=== PATIENT | female | born 1955 | race American Indian/Alaskan Native ===

== ENCOUNTER 2016-08-13 14:22 | Inpatient (IN) | payer OTHER ==
[2016-08-13 14:22] VITALS: BMI 20.9
--- NOTE | 2016-08-13 15:06 | ED PDOC ---
Arrival/HPI - General Time Seen by Provider: 08/13/16 14:44 Historian: Patient - History of Present Illness Narrative History of Present Illness (Text): 08/13/16 15:09 A 60 year old female, whose past medical history includes COPD and hypertension , presents to the emergency department complaining of worsening shortness of breath, palpitations, and intermittent left sided chest pain for the past three days. Patient reports she had these symptoms for the past month. She reports seeing her PMD and ict help desk technician three days ago. Patient reports taking Medrol dose pack and antibiotics for the past two days. She reports having cough with phlegm. Patient denies fevers, chills, body aches or any other complaints at this time. Patient states she hasn't traveled in past and no past surgeries. PMD: Dr. Schneider Audio Visual Facilities Engineer: Dr. Campuzano Time/Duration: Other (3 days) Symptom Onset: Sudden Symptom Course: Unchanged Activities at Onset: Rest Modifying Factors (Text): Medrol dose pack and antibiotics for past two days Context: Home Associated Symptoms (Text): cough (phlegm) Past Medical History - Provider Review Nursing Documentation Reviewed: Yes - Infectious Disease Hx of Infectious Diseases: None - Tetanus Immunization Tetanus Immunization: Unknown - Cardiac Hx Cardiac Disorders: Yes Hx Hypertension: Yes - Pulmonary Hx Respiratory Disorders: Yes Hx Asthma: Yes Hx Chronic Obstructive Pulmonary Disease (COPD): Yes - Neurological Hx Neurological Disorder: No - HEENT Hx HEENT Disorder: No - Renal Hx Renal Disorder: No - Endocrine/Metabolic Hx Endocrine Disorders: No - Hematological/Oncological Hx Blood Disorders: No - Integumentary Hx Dermatological Disorder: No - Musculoskeletal/Rheumatological Hx Musculoskeletal Disorders: Yes Hx Falls: No Hx Herniated Disk: Yes - Gastrointestinal Hx Gastrointestinal Disorders: Yes Hx Diverticulitis: Yes - Genitourinary/Gynecological Hx Genitourinary Disorders: No - Psychiatric Hx Psychophysiologic Disorder: No Hx Substance Use: No - Past Surgical History Past Surgical History: No Previous - Surgical History Other/Comment: Polyp removed from esophagus - Anesthesia Hx Anesthesia: Yes Hx Anesthesia Reactions: No Hx Malignant Hyperthermia: No - Suicidal Assessment Feels Threatened In Home Enviroment: No Family/Social History - Physician Review Nursing Documentation Reviewed: Yes Family/Social History: No Known Family HX Smoking Status: Light Smoker < 10 Cigarettes Daily Hx Alcohol Use: No Hx Substance Use: No Hx Substance Use Treatment: No Allergies/Home Meds Allergies/Adverse Reactions: Allergies No Known Allergies Allergy (Verified 08/13/16 15:06) Home Medications: Home Meds Medication Instructions Recorded Confirmed Metoprolol Tartrate 50 mg PO BID 08/25/13 08/13/16 Aclidinium [place] [Tudorza 400 mcg IH [facility] 05/31/14 08/13/16 Pressair] Acetaminophen/Oxycodone Hydr 10 mg PO Q6 PRN 02/02/16 08/13/16 [Percocet 10/325 mg Tab] Valsartan [Diovan] 320 mg PO DAILY 02/02/16 08/13/16 amLODIPine [Norvasc] 10 mg PO DAILY 02/02/16 08/13/16 oxyCODONE [oxyCONTIN] 30 mg PO Q12 02/02/16 08/13/16 Review of Systems - Physician Review All systems were reviewed & negative as marked: Yes - Review of Systems Constitutional: absent: Fevers, Other (chills) Respiratory: SOB, Cough Cardiovascular: Chest Pain, Palpitations Physical Exam Vital Signs Reviewed: Yes Vital Signs Temp Pulse Resp BP Pulse Ox 08/13/16 18:55 82 18 129/69 99 08/13/16 16:53 82 18 125/44 L 100 08/13/16 14:44 18 08/13/16 14:41 98 F 114 H 20 125/80 99 08/13/16 14:22 98.5 F 100 H 17 125/80 99 Temperature: Afebrile Blood Pressure: Normal Pulse: Tachycardic Respiratory Rate: Normal Appearance: Positive for: Well-Appearing, Non-Toxic, Comfortable Pain Distress: None Mental Status: Positive for: Alert and Oriented X 3 - Systems Exam Head: Present: Atraumatic, Normocephalic Pupils: Present: PERRL Extroacular Muscles: Present: EOMI Conjunctiva: Present: Normal Mouth: Present: Moist Mucous Membranes Neck: Present: Normal Range of Motion Respiratory/Chest: Present: Clear to Auscultation, Good Air Exchange. No: Respiratory Distress, Accessory Muscle Use Cardiovascular: Present: Tachycardic Abdomen: Present: Normal Bowel Sounds. No: Tenderness, Distention, Peritoneal Signs Back: Present: Normal Inspection Upper Extremity: Present: Normal Inspection. No: Cyanosis, Edema Lower Extremity: Present: Normal Inspection. No: Edema Neurological: Present: GCS=15, CN II-XII Intact, Speech Normal Skin: Present: Warm, Dry, Normal Color. No: Rashes Psychiatric: Present: Alert, Oriented x 3, Normal Insight, Normal Concentration Medical Decision Making ED Course and Treatment: 08/13/16 15:01 Impression: 60 year old female with worsening shortness of breath, palpitations and intermittent left sided chest pain. Differential Diagnosis included but are not limited to: Chest pain rule out ACS vs. COPD exacerbation vs. PNA Plan: -- EKG -- chest xray -- Labs -- Reassess and disposition Prior Visits: Notes and results from previous visits were reviewed. On 02/01/16 patient came in complaining of chest pain. Patient was admitted for observation in hospital for further evaluation. Case was discussed with Dr. Osuna. Patient was advised to follow up w Dr. King. Patient was discharged on 02/03/16 advised to continue Valsartan, nebulizer treatment, Amlodipine, and Oxycodone. Progress Notes: EKG: Ordered, reviewed, and independently interpreted the EKG. Rate : 117 BPM Rhythm : Sinus Tachycardia Interpretation : Non-specific ST/T changes Comparison : No change from previous on 02/02/16 Chest xray: Creator : Josué Pimentel MD IMPRESSION: Hyperinflation with relative lucent appearance of the upper lung chappell; rule out emphysema and or COPD. Elevation of left lateral mid and left lateral aspect of the hemidiaphragm could be due to chronic pleural thickening as and/or effusion. Minor blunting right CP angle could be due to of chronic pleural thickening or tiny effusion. 08/13/16 18:01 Patient feels better and no longer has symptoms. Her symptoms have been going on for a month. Her VERENA score is zero. She has close follow up with her doctor and wants to go home. Pending LA repeat. 08/13/16 18:[address] Crocker to f/u VBG LA, reeval and disposition. - Lab Interpretations Lab Results: 08/13/16 14:25 08/13/16 14:25 Lab Results 08/13/16 17:45: pO2 162 H, VBG pH 7.42, VBG pCO2 37.0 L, VBG HCO3 24.0, VBG Total CO2 25.1, VBG O2 Sat (Calc) 99.8 H, VBG Base Excess -0.2 L, VBG Potassium 4.0, Sodium 137.0, Chloride 107.0, Glucose 96, Lactate 3.4 H, FiO2 21.0, Venous Blood Potassium 4.0 08/13/16 14:25: Sodium 137, Chloride 101, Potassium 4.3, Carbon Dioxide 25, Anion Gap 15, BUN 10, Creatinine 1.0, Est GFR ( Amer) > 60, Est GFR (Non- Af Amer) 57, Random Glucose 108, Calcium 10.0, Lactate Dehydrogenase 478, Total Creatine Kinase 54, Troponin I < 0.01, NT-Pro-B Natriuret Pep 116 08/13/16 14:25: pO2 37, VBG pH 7.30 L, VBG pCO2 54.0, VBG HCO3 26.6, VBG Total CO2 28.3 H, VBG O2 Sat (Calc) 88.7 H, VBG Base Excess -0.7 L, VBG Potassium 5.5 H, Sodium 135.0, Chloride 103.0, Glucose 103, Lactate 2.9 H, FiO2 21.0, Venous Blood Potassium 5.5 H 08/13/16 14:25: WBC 7.8 D, RBC 4.90, Hgb 13.7, Hct 41.9, MCV 85.5, MCH 28.0, MCHC 32.7, RDW 12.7, Plt Count 255, MPV 9.4, Gran % 67.1, Lymph % (Auto) 22.7, [place] % (Auto) 10.2 H, Eos % (Auto) 0.0 L, Baso % (Auto) 0.0, Gran # 5.25, Lymph # 1.8, [place] # 0.8 H, Eos # 0.0, Baso # 0.00 I have reviewed the lab results: Yes - RAD Interpretation Radiology Orders: 08/13/16 14:58 CHEST PORTABLE [RAD] Stat - EKG Interpretation Interpreted by ED Physician: Yes Type: 12 lead EKG - Medication Orders Current Medication Orders: Sodium Chloride (Sodium Chloride 0.9%) 1,000 mls @ 999 mls/hr IV .Q1H1M STA Stop: 08/13/16 19:23 Discontinued Medications Sodium Chloride (Sodium Chloride 0.9%) 1,000 mls @ 999 mls/hr IV .Q1H1M STA Stop: 08/13/16 17:21 VERENA Risk Score for UA/NSTEMI - VERENA Risk Score Age > 64: NO 3 or more CAD Risk Factors: NO Known CAD (Stenosis greater than 50%): NO Aspirin use in past 7 days: NO Severe Angina: NO EKG ST changes greater than 0.5mm: NO Positive Cardiac Marker: NO VERENA Score: 0 % risk at 14 days of: all cause mortality, new or recurrent NM, or severe recurrent ischemia requiring urgen revascularization: 5% - Scribe Statement The provider has reviewed the documentation as recorded by the Scribe Jelly Rankin All medical record entries made by the Scribe were at my direction and personally dictated by me. I have reviewed the chart and agree that the record accurately reflects my personal performance of the history, physical exam, medical decision making, and the department course for this patient. I have also personally directed, reviewed, and agree with the discharge instructions and disposition. Disposition/Present on Arrival - Present on Arrival Any Indicators Present on Arrival: No History of DVT/PE: No History of Uncontrolled Diabetes: No Urinary Catheter: No History Surgical Site Infection Following: None - Disposition Have Diagnosis and Disposition been Completed?: Yes Diagnosis: Chest pain, Shortness of breath, Palpitation Disposition Time: 18:05 Patient Plan: Discharge Patient Problems: Current Active Problems Problem Status Onset Chest pain Acute Shortness of breath Acute Palpitation Acute Condition: IMPROVED Discharge Instructions (ExitCare): Chest Pain (ED) Referrals: Vik Schneider MD [Primary Care Provider] - Follow up with primary
[2016-08-13 15:40] LABS: ADD MANUAL DIFF? NO
[2016-08-13 15:54] LABS: GRAN # 5.25 (1.4-6.5); GRAN % 67.1 % (50.0-68.0); HEMATOCRIT 41.9 % (36.0-48.0); LYMPH # 1.8 (1.2-3.4); LYMPH % 22.7 % (22.0-35.0); MEAN CELL VOLUME 85.5 fL (80.0-105.0); MEAN CORPUSCULAR HGB CONC 32.7 g/dl (31.0-37.0); MEAN PLATELET VOLUME 9.4 fl (7.0-11.0); MONO # 0.8 (0.1-0.6); MONO % 10.2 % (1.0-6.0); PLATELET COUNT 255 10^3/uL (120.0-450.0); RED CELL DISTRIBUTION WIDTH 12.7 % (11.5-14.5); WHITE BLOOD COUNT 7.8 10^3/ul (4.5-11.0)
[2016-08-13 15:58] LABS: VENOUS BLOOD GAS BASE EXCESS -0.7 mmol/L (0.0-2.0)
[2016-08-13 16:06] LABS: BLOOD UREA NITROGEN 10 mg/dL (7-21); CARBON DIOXIDE 25 mmol/L (21-33); CHLORIDE 101 mmol/L (98-107); GFR AFRICAN-AMERICAN > 60; GLUCOSE,RANDOM 108 mg/dL (70-110); POTASSIUM 4.3 mmol/L (3.6-5.0); SODIUM 137 mmol/L (132-148)
[2016-08-13 16:19] LABS: TROPONIN I < 0.01 ng/mL
[2016-08-13] MEDS ORDERED: Sodium Chloride 0.9% 1,000 ML IV STA ×2 (16:21→18:23)
--- NOTE | 2016-08-13 17:31 | RAD ---
HISTORY: cough r/o pna COMPARISON: No prior. FINDINGS: LUNGS: Hyperinflation with relative lucent appearance of the upper lung chappell; rule out emphysema and or COPD. . Elevation of left lateral mid and left lateral aspect of the hemidiaphragm could be due to chronic pleural thickening as and/or effusion. . Minor blunting right CP angle could be due to of chronic pleural thickening or tiny effusion. PLEURA: No significant pleural effusion identified, no pneumothorax apparent. CARDIOVASCULAR: Normal. OSSEOUS STRUCTURES: No significant abnormalities. VISUALIZED UPPER ABDOMEN: Normal. OTHER FINDINGS: None. IMPRESSION: Hyperinflation with relative lucent appearance of the upper lung chappell; rule out emphysema and or COPD. . Elevation of left lateral mid and left lateral aspect of the hemidiaphragm could be due to chronic pleural thickening as and/or effusion. . Minor blunting right CP angle could be due to of chronic pleural thickening or tiny effusion.
[2016-08-13 18:17] LABS: VENOUS BLOOD GAS BASE EXCESS -0.2 mmol/L (0.0-2.0); VENOUS BLOOD PH 7.42 (7.32-7.43)
[2016-08-13] MEDS ORDERED: Albuterol-Ipratrop 3 mg / 0.5 (3 ml) UD ONE (21:42)
[2016-08-13] MEDS ORDERED: Albuterol-Ipratrop 3 mg / 0.5 (3 ml) UD IH STA (21:44)
[2016-08-13 21:54] LABS: VENOUS BLOOD GAS BASE EXCESS 0.3 mmol/L (0.0-2.0); VENOUS BLOOD PH 7.37 (7.32-7.43)
--- NOTE | 2016-08-13 22:21 | ED PDOC ---
Physical Exam Vital Signs Reviewed: Yes Vital Signs Temp Pulse Resp BP Pulse Ox 08/13/16 18:55 82 18 129/69 99 08/13/16 16:53 82 18 125/44 L 100 08/13/16 14:44 18 08/13/16 14:41 98 F 114 H 20 125/80 99 08/13/16 14:22 98.5 F 100 H 17 125/80 99 Medical Decision Making ED Course and Treatment: 08/13/16 19:00 Case endorsed to me by Dr. Fragoso, pending VBG LA, reeval and disposition. 08/13/16 22:[address] Osuna, who is aware and agrees with plan. Accepts pt in to his service. Pt will go to [facility] observation for asthmatic bronchitis. - Lab Interpretations Lab Results: 08/13/16 14:25 08/13/16 14:25 Lab Results 08/13/16 21:25: pO2 49, VBG pH 7.37, VBG pCO2 45.0, VBG HCO3 26.0, VBG Total CO2 27.4, VBG O2 Sat (Calc) 90.0 H, VBG Base Excess 0.3, VBG Potassium 3.5 L, Sodium 140.0, Chloride 110.0 H, Glucose 97, Lactate 2.1, FiO2 21.0, Venous Blood Potassium 3.5 L 08/13/16 17:45: pO2 162 H, VBG pH 7.42, VBG pCO2 37.0 L, VBG HCO3 24.0, VBG Total CO2 25.1, VBG O2 Sat (Calc) 99.8 H, VBG Base Excess -0.2 L, VBG Potassium 4.0, Sodium 137.0, Chloride 107.0, Glucose 96, Lactate 3.4 H, FiO2 21.0, Venous Blood Potassium 4.0 08/13/16 14:25: Sodium 137, Chloride 101, Potassium 4.3, Carbon Dioxide 25, Anion Gap 15, BUN 10, Creatinine 1.0, Est GFR ( Amer) > 60, Est GFR (Non- Af Amer) 57, Random Glucose 108, Calcium 10.0, Lactate Dehydrogenase 478, Total Creatine Kinase 54, Troponin I < 0.01, NT-Pro-B Natriuret Pep 116 08/13/16 14:25: pO2 37, VBG pH 7.30 L, VBG pCO2 54.0, VBG HCO3 26.6, VBG Total CO2 28.3 H, VBG O2 Sat (Calc) 88.7 H, VBG Base Excess -0.7 L, VBG Potassium 5.5 H, Sodium 135.0, Chloride 103.0, Glucose 103, Lactate 2.9 H, FiO2 21.0, Venous Blood Potassium 5.5 H 08/13/16 14:25: WBC 7.8 D, RBC 4.90, Hgb 13.7, Hct 41.9, MCV 85.5, MCH 28.0, MCHC 32.7, RDW 12.7, Plt Count 255, MPV 9.4, Gran % 67.1, Lymph % (Auto) 22.7, [place] % (Auto) 10.2 H, Eos % (Auto) 0.0 L, Baso % (Auto) 0.0, Gran # 5.25, Lymph # 1.8, [place] # 0.8 H, Eos # 0.0, Baso # 0.00 - RAD Interpretation Radiology Orders: 08/13/16 14:58 CHEST PORTABLE [RAD] Stat - Medication Orders Current Medication Orders: Acetaminophen (Tylenol 325mg Tab) 650 mg PO Q4H PRN PRN Reason: Fever >100.5 F Albuterol/Ipratropium (Duoneb 3 Mg/0.5 Mg (3 Ml) Ud) 3 ml IH Q4H PRN PRN Reason: Shortness of Breath Levofloxacin/Dextrose (Levaquin 750mg) 750 mg in 150 mls @ 100 mls/hr IVPB STAT STA Stop: 08/14/16 00:59 Methylprednisolone (Solu-Medrol) 125 mg IVP ONCE ONE Stop: 08/13/16 23:31 Discontinued Medications Albuterol/Ipratropium (Duoneb 3 Mg/0.5 Mg (3 Ml) Ud) Confirm Administered Dose 3 ml .ROUTE .STK-MED ONE Stop: 08/13/16 21:43 Last Admin: 08/13/16 21:50 Dose: 3 ml Albuterol/Ipratropium (Duoneb 3 Mg/0.5 Mg (3 Ml) Ud) 3 ml IH STAT STA Stop: 08/13/16 21:45 Last Admin: 08/13/16 22:19 Dose: Sodium Chloride (Sodium Chloride 0.9%) 1,000 mls @ 999 mls/hr IV .Q1H1M STA Stop: 08/13/16 17:21 Last Admin: 08/13/16 16:30 Dose: 999 mls/hr Sodium Chloride (Sodium Chloride 0.9%) 1,000 mls @ 999 mls/hr IV .Q1H1M STA Stop: 08/13/16 19:23 Last Admin: 08/13/16 18:49 Dose: 999 mls/hr Disposition/Present on Arrival - Present on Arrival Any Indicators Present on Arrival: No History of DVT/PE: No History of Uncontrolled Diabetes: No Urinary Catheter: No History of Decub. Ulcer: No History Surgical Site Infection Following: None - Disposition Have Diagnosis and Disposition been Completed?: Yes Diagnosis: Chest pain, Shortness of breath, Palpitation Disposition: HOSPITALIZED Disposition Time: 22:20 Patient Problems: Current Active Problems Problem Status Onset Chest pain Acute Palpitation Acute Shortness of breath Acute Condition: IMPROVED
[2016-08-13] MEDS ORDERED: levoFLOXacin 750 mg in D5W 750 MG/150 ML BAG IVPB STA (23:30)
[2016-08-13] MEDS ORDERED: Albuterol-Ipratrop 3 mg / 0.5 (3 ml) UD IH PRN (23:33)
[2016-08-14] MEDS: Oxycodone/Acetaminophen 10/325 mg Tab PO SCH ×2 (04:57→08:48)
[2016-08-14] MEDS ORDERED: Albuterol-Ipratrop 3 mg / 0.5 (3 ml) UD IH PRN (06:55)
[2016-08-14] MEDS: Budesonide 0.5 mg/2 ml Inhal Susp UD IH SCH ×2 (08:42→20:20)
[2016-08-14] MEDS: Albuterol-Ipratrop 3 mg / 0.5 (3 ml) UD IH SCH ×3 (08:42→20:20)
[2016-08-14 09:45] LABS: VENOUS BLOOD GAS BASE EXCESS 2.4 mmol/L (0.0-2.0); VENOUS BLOOD PH 7.42 (7.32-7.43)
[2016-08-14] MEDS: levoFLOXacin 500 MG TAB PO SCH (09:53)
[2016-08-14] MEDS: MethylPREDNISolone 40 mg Vial IVP SCH ×2 (09:53→22:31)
[2016-08-14] MEDS ORDERED: Oxycodone/Acetaminophen 10/325 mg Tab PO PRN (10:13)
--- NOTE | 2016-08-14 10:29 | CON ---
DATE: 08/14/2016 PULMONARY CONSULTATION REASON FOR CONSULTATION: Chronic obstructive pulmonary disease. REFERRING PHYSICIAN: Andrew Osuna MD. HISTORY OF PRESENT ILLNESS: The patient is a 60-year-old female with past medical history significant for chronic obstructive pulmonary disease, positive extensive smoking history, asthma, hypertension, who presents to [facility] with a 5-day history of worsening shortness of breath at rest, dyspnea on exertion, cough, and minimal sputum production. There is no history of chest pain, coughing up of blood, or chest pain - made worse with deep respirations. There is no history of temperatures, chills, or infectious exposure. There is no history of night sweats, weight loss, or appetite change prior to the above events. No history of leg or calf pains. No history of syncope or diaphoresis. No history of recent travel or trauma. REVIEW OF SYSTEMS: No history of nausea, vomiting, or diarrhea. No acute urinary symptoms. No new neurological or musculoskeletal complaints. The rest of the review of systems is negative. ALLERGIES: No known allergies. SOCIAL HISTORY: Positive for extensive tobacco usage. No alcohol. FAMILY HISTORY: No inheritable diseases. HOME MEDICATIONS: Include oxycodone, Norvasc, Diovan, metoprolol, albuterol, Tudorza, and Percocet. PHYSICAL EXAMINATION: GENERAL: The patient appears comfortable at rest. She is not short of breath. VITAL SIGNS: Temperature is 98.3. At the present time, pulse is approximately 80, respirations 18, blood pressure 148/98. Oxygen saturation on room air is 99 %. HEENT: Normocephalic, atraumatic. NECK: No JVD. CARDIOVASCULAR: Systolic ejection murmur at the lower left sternal border. No S3 gallop. LUNGS: Decreased breath sounds at the bases. Minimal rhonchi. Minimal wheezing. EXTREMITIES: No clubbing, cyanosis, or edema. Calves are nontender to palpation. GASTROINTESTINAL: Abdomen is soft, nontender, nondistended. Bowel sounds are positive. SKIN: No acute rash. NEUROLOGIC: Limited at the present time. PERTINENT LABORATORY DATA: Chest x-ray was done yesterday and reviewed. There are chronic changes noted - consistent with chronic obstructive pulmonary disease. CBC: White count 7.8, hemoglobin 13.7, hematocrit 41.9, platelets of 255. Complete metabolic profile is completely within normal limits. IMPRESSION: 1. Acute bronchitis. 2. Chronic obstructive pulmonary disease. 3. Asthma. 4. Hypertension. PLAN: The patient presents to [facility] with a 5-day history of worsening pulmonary symptoms. I did review the x-ray as above. The x-ray is consistent with chronic obstructive pulmonary disease. I do not appreciate any new or significant changes. On physical exam, the patient is in mild to moderate bronchospasm. However, there is no significant alveolar arterial gradient. Oxygen saturation on room air is now 99%. I will start the patient on nebulizer treatments and intravenous steroids this morning. Due to her age and above diagnoses, I will also start oral antibiotic therapy. There is no history of temperatures. There is no leukocytosis. The patient does feel better this morning - compared to the past few days. She is clinically improved. Additional pulmonary intervention will be based on the clinical status of the patient. I will discuss the above with Dr. Osuna. Thank you very much for this pulmonary consultation. Mono Bronson MD cc: [id number] TT: 08/14/2016 10:28:54 Confirmation # [id number] Dictation # [id number] MTDD
[2016-08-14] MEDS: oxyCODONE 10 mg ER Tab (oxyCONTIN) PO SCH ×2 (12:22→22:31)
[2016-08-14 14:05] LABS: VENOUS BLOOD GAS BASE EXCESS 1.7 mmol/L (0.0-2.0); VENOUS BLOOD PH 7.41 (7.32-7.43)
[2016-08-14] MEDS: POLYETHYLENE GLYCOL 3350 17 GM/Dose PACKET PO SCH (17:11)
--- NOTE | 2016-08-14 19:00 | HP ---
CHIEF COMPLAINT AND HISTORY OF PRESENT ILLNESS: This is a 60-year-old female who is coming into the hospital with a past medical history of hypertension, COPD. She has been having worsening shortness of breath, palpitations, intermittent left-sided chest pain for the past 3 days. She says she had th renetta symptoms for the past month. She reports seeing her primary doctor and her warp picker. She h as been on Medrol Dosepak. She is on antibiotics for the 2 days. She has been having cough with phl egm. She sees Dr. Campuzano, who is her warp picker. She says that her breathing is a bit better than it was yesterday. She has no fevers or chills, no nausea, no dysuria, frequency, or nocturia. REVIEW OF SYSTEMS: All other review of symptoms are within normal limits except as mentioned. ALLERGIES: No known drug allergies. HOME MEDICATIONS: This has been reviewed. She is taking albuterol, amlodipine, metoprolol, OxyConti n 20 mg twice a day, Percocet 10 mg p.r.n. SOCIAL HISTORY: She does smoke less than 10 cigarettes a day. FAMILY HISTORY: Noncontributory. PAST MEDICAL HISTORY: Hypertension, peripheral neuropathy, syncope, chronic back pain, gait dysfunct ion. PHYSICAL EXAMINATION: VITAL SIGNS: Temperature is 98, pulse of 106, blood pressure 103/64, respirations 20, O2 saturation is 100%, height is 5 feet 6, weight is 130 pounds, BMI is 21. GENERAL: Patient lying in bed, flat, and in no apparent distress. HEAD AND NECK EXAM: Atraumatic, normocephalic. Conjunctivae are pink. Throat clear and mouth with moist mucosa. Oropharynx benign. EYES: Extraocular movements are intact. PERRLA. NECK: Supple. No JVD, thyromegaly, or adenopathy. No bruits. HEART: S1 and S2 regular rate and rhythm. No murmurs, rubs, or gallops. LUNGS: Clear to auscultation bilaterally. No wheezing rales or rhonchi appreciated. No retraction s on exam. ABDOMEN: Soft, nontender, nondistended. Bowel sounds are positive in all quadrants. No rebound. No hepatosplenomegaly. EXTREMITIES: No cyanosis, clubbing, or edema. NEURO: No facial asymmetry, tongue is midline, no uvula deviation. Power is 5/5 in upper extremity and 5/5 in lower extremity. Sensation is normal in upper extremity and lower extremity. PSYCH: Awake, alert, oriented x3. No anxiety or depression symptoms. Good insight. Normal affec t. : No CVA tenderness VASCULAR: 2+ pulses in carotid and pedal pulses. SKIN: No erythema or abnormal nodules noted. SPINE: Normal curvature. LYMPHADENOPATHY: No anterior cervical or posterior cervical adenopathy. No inguinal adenopathy. LABORATORY DATA: Have been reviewed. Potassium is 4.3, creatinine is 1.0. Troponin 0.01. ABG done shows a pH of 7.41 with a pCO2 of 42, PaO2 of 73. Chest x-ray done shows hyperinflation with relative lucent appearance of the upper lung chappell. ASSESSMENT: 1. Acute chronic obstructive pulmonary disease exacerbation. 2. Hypertension. 3. Smoking. 4. Chronic back pain. PLAN: The patient is going to be admitted to the hospital because of shortness of breath. She faile d outpatient treatment. She is going to be seen by Dr. Bronson from pulmonary. I did speak to him. The patient does have a history of smoking. She is going to be on nebulizer treatments. She is on Diovan for her hypertension and this will be continued. We will continue her Solu-Medrol. She is on Tylenol. She is receiving pain medication, OxyContin as well as Percocet for breakthrough pain. Jorge green is on a heart healthy diet. She is asking for user interface artist to evaluate her foot pain and I will also give her medications for her constipation. Andrew Osuna MD cc: [id number] TT: 08/14/2016 18:59:54 ne
[2016-08-14 20:48] LABS: VENOUS BLOOD GAS BASE EXCESS 2.5 mmol/L (0.0-2.0)
--- NOTE | 2016-08-14 22:14 | CARD ---
APPROVED REPORT EKG Measurement Heart [id number] <Conclusion> Sinus tachycardia T wave abnormality, consider anterolateral ischemia Abnormal ECG
[2016-08-15] MEDS: Albuterol-Ipratrop 3 mg / 0.5 (3 ml) UD IH SCH ×4 (01:38→19:44)
[2016-08-15] MEDS: Oxycodone/Acetaminophen 10/325 mg Tab PO PRN ×3 (03:07→20:45)
[2016-08-15] MEDS: Budesonide 0.5 mg/2 ml Inhal Susp UD IH SCH ×2 (07:21→19:44)
--- NOTE | 2016-08-15 07:50 | PN ---
DATE: 08/15/2016 SUBJECTIVE: The patient appears very comfortable this morning. She is not short of breath at rest. PHYSICAL EXAMINATION: VITALS: (Last noted in the computer): Temperature is 98.1, pulse 82, respirations 18, blood pressure 116/74. Oxygen saturation on room air is 100%. HEENT: Normocephalic, atraumatic. No JVD. CARDIOVASCULAR: Systolic ejection murmur at the lower left sternal border. No S3 gallop. LUNGS: Improved breath sounds at the bases. Less rhonchi. No wheezing this morning. EXTREMITIES: No clubbing, cyanosis, or edema. Calves are nontender to palpation. GASTROINTESTINAL: Abdomen is soft, nontender, nondistended. Bowel sounds are positive. SKIN: No acute rash. NEUROLOGIC: Limited at the present time. IMPRESSION: 1. Acute bronchitis. 2. Chronic obstructive pulmonary disease. 3. Asthma. 4. Hypertension. PLAN: The patient appears very comfortable this morning. She is not short of breath at rest. She does state to feeling better overall. On physical exam, her bronchospasm is certainly less. In addition, the oxygen saturation on room air is now 100%. I will continue with the current nebulizer treatments and oral antibiotic therapy, for now. However, I will decrease the intravenous steroids this morning. Clinical status of the patient is significantly improved -- compared to the initial presentation. The patient is advised to increase her activity as tolerated. I will discuss the above with Dr. sOuna. Mono Bronson MD cc: [id number] TT: 08/15/2016 07:49:29 Confirmation # [id number] Dictation # [id number] REBECCA
[2016-08-15 08:26] VITALS: RESP 20
--- NOTE | 2016-08-15 09:18 | PN ---
DATE: 08/15/2016 SUBJECTIVE: The patient has no complaints of any headaches, no dizziness. The patient says her marquise thing is better. PHYSICAL EXAMINATION: VITAL SIGNS: Temperature is 98, pulse is 77, blood pressure is 100/51, respirations 20. GENERAL: The patient comfortable, in no acute distress. HEENT: Anicteric sclerae. Moist mucosa. NECK: No JVD or adenopathy. CARDIAC: S1/S2. No murmurs. No rubs. Regular. RESPIRATORY: Clear to auscultation bilaterally. No wheezes, rales, or rhonchi. Good air entry. ABDOMEN: Bowel sounds are positive, soft, nontender, and nondistended. EXTREMITIES: No edema. Has 1+ pulses. ASSESSMENT: 1. Acute chronic obstructive pulmonary disease. 2. Hypertension. 3. Smoking. 4. Chronic back pain. PLAN: The patient is currently comfortable. She is on valsartan for hypertension. She is on Levaqu in for antibiotics. She is receiving metoprolol. She is receiving Solu-Medrol. She is on a heart h ealthy diet. Condition is stable. Andrew Osuna MD cc: [id number] TT: 08/15/2016 09:17:00 Confirmation # [id number] Dictation # [id number] en
[2016-08-15] MEDS: levoFLOXacin 500 MG TAB PO SCH (09:24)
[2016-08-15] MEDS: oxyCODONE 10 mg ER Tab (oxyCONTIN) PO SCH ×2 (09:25→22:23)
[2016-08-15] MEDS: POLYETHYLENE GLYCOL 3350 17 GM/Dose PACKET PO SCH ×2 (09:25→18:08)
[2016-08-15] MEDS: MethylPREDNISolone 40 mg Vial IVP SCH ×2 (09:28→22:23)
--- NOTE | 2016-08-15 14:33 | PN ---
DATE: 08/15/2016 This is a 60-year-old female seen at bedside complaining of pain in her feet, especially on her left foot. The patient states that she has a neuropathy that is coming from a herniated disk in her back. However, she states that neurologists had told her that all of the pain is not coming from the radi culopathy. However, part of the pain is coming from her flat foot deformity. PAST MEDICAL HISTORY: Positive for hypertension and COPD. REVIEW OF SYSTEMS: CARDIORESPIRATORY: Show positive for shortness of breath and for some chest pain. MUSCULOSKELETAL: Positive for the pain in her feet. NEUROLOGICAL: As noted above. CONSTITUTIONAL: She denies any fever, chills. GASTROINTESTINAL: She denies nausea or any other GI problems. GENITOURINARY: She is not complaining of any problems. MEDICATIONS: Noted on the JUN. ALLERGIES: The patient has no known drug allergies. SOCIAL HISTORY: She lives at home and she does continue to smoke, she states approximately 10 cigare ttes a day. FAMILY HISTORY: Noncontributory to this problem. PHYSICAL EXAMINATION: GENERAL: Shows an alert, oriented female at bedside. VITAL SIGNS: Show 98 temperature, her pulse is 80, the blood pressure is 94/66 and the oxygen sat wa s 95%. LABORATORIES: Show a white blood cell count of 7.8, the H and H is 13.7 and 41.9, the platelets are 255. The patient's granulocytes and lymphocytes are within normal limits. There was not a shift to the right or the left noted at this time. Her SMA was also noted to be 100% within normal limits. T he patient's microbiology shows no blood cultures after 24 hours. PHYSICAL EXAMINATION: The patient's lower extremity exam shows that she has nonpalpable pedal pulses bilateral. Since she is a smoker, we will order arterial Doppler studies. The patient's neurologic al sensation is decreased. She does have neuropathy as noted above from a radiculopathy. Biomechani mya, patient is seen in the standing position with abnormal pronation on the left. We evaluated reva chester's shoulders and hips and noted that there is a functional limb length discrepancy with the righ t leg shorter than the left. This patient was then asked to walk and this was confirmed with the amb ulation, noting that the left leg was longer than the right. 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 PLAN OF TREATMENT: I discussed with patient that part of the problem is coming from the limb length deformity. We will get her a lift to put into her right shoe. However, there are pronatory changes also which need to be addressed with an orthotic when she is discharged and becomes an outpatient. T he patient will be seen and followed at that time. Saige Matamoros DPM cc: [id number] TT: 08/15/2016 14:32:54 Confirmation # [id number] Dictation # [id number] en
--- NOTE | 2016-08-15 19:06 | US ---
PROCEDURE: Lower extremity LAI exam HISTORY: Peripheral vascular disease with pain and claudication. PHYSICIAN(S): Shawn Mcnalyl MD. FINDINGS: The resting LAI's are borderline normal: Right, 0.86 and left, 0.82 The brachial systolic pressures are symmetric. The high thigh pressures and waveforms are relatively normal. The calf PVR waveforms augment normally. No significant gradients are noted across the thighs. The ankle and metatarsal waveforms are relatively normal and symmetric. No significant pressure gradients are noted across the lower legs. IMPRESSION: 1. Relatively normal LAI and PVR examination at rest.
[2016-08-16] MEDS: Albuterol-Ipratrop 3 mg / 0.5 (3 ml) UD IH SCH ×3 (02:38→13:25)
[2016-08-16] MEDS: Oxycodone/Acetaminophen 10/325 mg Tab PO PRN (05:46)
[2016-08-16] MEDS: Budesonide 0.5 mg/2 ml Inhal Susp UD IH SCH (07:33)
--- NOTE | 2016-08-16 08:01 | PN ---
DATE: 08/16/2016 SUBJECTIVE: The patient appears very comfortable this morning. She is not short of breath at rest. PHYSICAL EXAMINATION: VITAL SIGNS: Last temperature recorded is 98.3, pulse this morning is approximately 80, respiratory rate 18, blood pressure 116/74. Oxygen saturation on room air ranges between 93-100%. HEENT: Normocephalic, atraumatic. No JVD. CARDIOVASCULAR: Systolic ejection murmur at the lower left sternal border. No S3 gallop. LUNGS: Very minimal/less rhonchi. No wheezing. EXTREMITIES: No clubbing, cyanosis, or edema. Calves are nontender to palpation. GASTROINTESTINAL: Abdomen is soft, nontender, nondistended. Bowel sounds are positive. SKIN: No acute rash. NEUROLOGIC: Limited at the present time. IMPRESSION: 1. Acute bronchitis. 2. Chronic obstructive pulmonary disease. 3. Asthma. 4. Hypertension. PLAN: The patient appears very comfortable this morning. She is not short of breath at rest. She states to feeling much, much better overall. On physical exam, her bronchospasm continues to resolve. In addition, there is no significant alveolar arterial gradient. I will continue with the current nebulizer treatments and change to oral steroids this morning. The patient remains on oral antibiotic therapy. There are no temperatures noted. There is no leukocytosis. Clinical status of the patient is significantly improved - compared to the initial presentation. I will discuss the above with Dr. Osuna this morning. Mono Bronson MD cc: [id number] TT: 08/16/2016 08:00:23 Confirmation # [id number] Dictation # [id number] jairo FERNANDEZ
[2016-08-16 08:39] VITALS: BP 150/95; PULSE 77; TEMP 98; O2SAT 96
--- NOTE | 2016-08-16 08:59 | RAD ---
PROCEDURE: Left Foot Radiographs. HISTORY: pain left foot COMPARISON: None. FINDINGS: BONES: Normal. No fracture. JOINTS: Normal. SOFT TISSUES: Normal. OTHER FINDINGS: None. IMPRESSION: Normal left foot radiographs.
[2016-08-16] MEDS: POLYETHYLENE GLYCOL 3350 17 GM/Dose PACKET PO SCH (10:53)
[2016-08-16] MEDS: oxyCODONE 10 mg ER Tab (oxyCONTIN) PO SCH (10:54)
[2016-08-16] MEDS: levoFLOXacin 500 MG TAB PO SCH (10:56)
--- NOTE | 2016-08-16 11:26 | CP.PCM.PN ---
<Jeni Martines - Last Filed: 08/16/16 11:22> Subjective - Date & Time of Evaluation Date of Evaluation: 08/16/16 Time of Evaluation: 11:22 - Subjective Subjective: 60 year old female was seen resting comfortably at bedside regarding pain in her feet. Patient is NAD, AAOx3. She states that she is going to follow up with her pain doctor. She denies any n/v/f/c/sob/cp. Objective - Vital Signs/Intake and Output Vital Signs (last 24 hours): Temp Pulse Resp BP Pulse Ox 98 F 77 20 150/95 H 96 08/16/16 08:38 08/16/16 10:53 08/16/16 08:38 08/16/16 10:53 08/16/16 08:38 Intake and Output: 08/16/16 08/16/16 06:59 18:59 Intake Total 900 Balance 900 - Medications Medications: Current Medications Acetaminophen (Tylenol 325mg Tab) 650 mg PO Q4H PRN PRN Reason: Fever >100.5 F Last Admin: 08/14/16 02:06 Dose: 650 mg Albuterol/Ipratropium (Duoneb 3 Mg/0.5 Mg (3 Ml) Ud) 3 ml IH [id number] [facility] Last Admin: 08/16/16 07:33 Dose: 3 ml Albuterol/Ipratropium (Duoneb 3 Mg/0.5 Mg (3 Ml) Ud) 3 ml IH Q2H PRN PRN Reason: Shortness of Breath Budesonide (Pulmicort Respules) 0.5 mg IH [id number] [facility] Last Admin: 08/16/16 07:33 Dose: 0.5 mg Levofloxacin (Levaquin) 500 mg PO DAILY [facility] Last Admin: 08/16/16 10:56 Dose: 500 mg Metoprolol Tartrate (Lopressor) 50 mg PO BID [facility] Last Admin: 08/16/16 10:53 Dose: 50 mg Oxycodone HCl (Oxycontin Extended Release Tab) 30 mg PO Q12 [facility] Last Admin: 08/16/16 10:54 Dose: 30 mg Oxycodone/Acetaminophen (Percocet 10/325 Mg Tab) 1 tab PO Q6 PRN PRN Reason: Pain, moderate (4-7) Last Admin: 08/16/16 05:46 Dose: 1 tab Polyethylene Glycol (Miralax) 17 gm PO BID [facility] Last Admin: 08/16/16 10:53 Dose: 17 gm Prednisone (Prednisone Tab) 40 mg PO DAILY [facility] Last Admin: 08/16/16 10:55 Dose: 40 mg Valsartan (Diovan) 320 mg PO DAILY [facility] Last Admin: 08/16/16 10:52 Dose: 320 mg - Constitutional Appears: Well, Non-toxic, No Acute Distress - Extremities Exam Additional comments: limb length discrepancy noted, left limb longer than right limb - Neurological Exam Neurological Exam: Alert, Awake, Oriented x3 - Psychiatric Exam Psychiatric exam: Normal Affect, Normal Mood Assessment and Plan - Assessment and Plan (Free Text) Assessment: 60 year old female with limb length deformity with left leg longer than right Plan: Patient examined and evaluated Discussed in detail with attending Dr. Vang Heel lift was applied to right shoe patient to follow up with Dr. Matamoros as outpatient Patient is stable from podiatry standpoint <Arturo Vang - Last Filed: 08/16/16 12:12> Objective - Vital Signs/Intake and Output Vital Signs (last 24 hours): Temp Pulse Resp BP Pulse Ox 98 F 77 20 150/95 H 96 08/16/16 08:38 08/16/16 10:53 08/16/16 08:38 08/16/16 10:53 08/16/16 08:38 Intake and Output: 08/16/16 08/16/16 06:59 18:59 Intake Total 900 Balance 900 - Medications Medications: Current Medications Acetaminophen (Tylenol 325mg Tab) 650 mg PO Q4H PRN PRN Reason: Fever >100.5 F Last Admin: 08/14/16 02:06 Dose: 650 mg Albuterol/Ipratropium (Duoneb 3 Mg/0.5 Mg (3 Ml) Ud) 3 ml IH [id number] [facility] Last Admin: 08/16/16 07:33 Dose: 3 ml Albuterol/Ipratropium (Duoneb 3 Mg/0.5 Mg (3 Ml) Ud) 3 ml IH Q2H PRN PRN Reason: Shortness of Breath Budesonide (Pulmicort Respules) 0.5 mg IH [id number] [facility] Last Admin: 08/16/16 07:33 Dose: 0.5 mg Levofloxacin (Levaquin) 500 mg PO DAILY [facility] Last Admin: 08/16/16 10:56 Dose: 500 mg Metoprolol Tartrate (Lopressor) 50 mg PO BID [facility] Last Admin: 08/16/16 10:53 Dose: 50 mg Oxycodone HCl (Oxycontin Extended Release Tab) 30 mg PO Q12 [facility] Last Admin: 08/16/16 10:54 Dose: 30 mg Oxycodone/Acetaminophen (Percocet 10/325 Mg Tab) 1 tab PO Q6 PRN PRN Reason: Pain, moderate (4-7) Last Admin: 08/16/16 05:46 Dose: 1 tab Polyethylene Glycol (Miralax) 17 gm PO BID [facility] Last Admin: 08/16/16 10:53 Dose: 17 gm Prednisone (Prednisone Tab) 40 mg PO DAILY [facility] Last Admin: 08/16/16 10:55 Dose: 40 mg Valsartan (Diovan) 320 mg PO DAILY [facility] Last Admin: 08/16/16 10:52 Dose: 320 mg Attending/Attestation - Attestation I have personally seen and examined this patient.: Yes I have fully participated in the care of the patient.: Yes I have reviewed all pertinent clinical information, including history, physical exam and plan: Yes
--- NOTE | 2016-08-16 15:10 | DS ---
The patient is a 60-year-old female who came into the hospital because of an acute COPD exacerbation. The patient was given steroids, nebulizer treatments and had improvement of her symptoms. She curr ently feels well. She says her breathing is much better. She was seen by podiatry for cutting of he r toenails. She has no complaints of any headaches or dizziness. No nausea, no vomiting. PHYSICAL EXAMINATION: VITAL SIGNS: Temperature is 98, pulse is 77, blood pressure 150/95, respirations 20, O2 saturation 9 6. GENERAL: The patient comfortable, in no acute distress. HEENT: Anicteric sclerae. Moist mucosa. NECK: No JVD or adenopathy. CARDIAC: S1/S2. No murmurs. No rubs. Regular. RESPIRATORY: Clear to auscultation bilaterally. No wheezes, rales, or rhonchi. Good air entry. ABDOMEN: Bowel sounds are positive, soft, nontender, and nondistended. EXTREMITIES: No edema. Has 1+ pulses. ASSESSMENT: 1. Acute chronic obstructive pulmonary disease. 2. Hypertension. 3. Smoking. 4. Chronic back pain. PLAN: The patient was given Solu-Medrol and we will switch that over to prednisone. The patient is going to be on Ativan for anxiety. She was given a prescription. She is going to be discharged home to followup. CONDITION: Stable. ACTIVITIES: Increase as tolerated. FOLLOWUP: Follow up with Dr. Mcnally and Dr. Osuna in 1-2 weeks. Andrew Osuna MD cc: [id number] TT: 08/16/2016 15:10:12
== END 2016-08-16 13:36 | disposition home or self-care (01) | DRG 192 ==
LOC: ED 14:22 → ERH 22:45 → 5RSO 08-14 01:56 → OBSVTOIN 08-14 10:12
PROVIDERS: ADMIT Internal Medicine Nephrology; ATTEND Internal Medicine Nephrology
PROC: 3E0F7GC Introduction of Other Therapeutic Substance into Respiratory Tract, Via Natural or Artificial Opening (ICD-10-PCS; principal; 2016-08-14)
DX: J44.1 Chronic obstructive pulmonary disease with (acute) exacerbation (principal); G62.9 Polyneuropathy, unspecified; I10 Essential (primary) hypertension; J44.0 Chronic obstructive pulmonary disease with (acute) lower respiratory infection; J20.9 Acute bronchitis, unspecified; R00.2 Palpitations; F17.210 Nicotine dependence, cigarettes, uncomplicated; G89.29 Other chronic pain; R26.9 Unspecified abnormalities of gait and mobility; M54.9 Dorsalgia, unspecified; K59.00 Constipation, unspecified; J45.909 Unspecified asthma, uncomplicated; M21.40 Flat foot [pes planus] (acquired), unspecified foot

== ENCOUNTER 2017-04-19 14:56 | Emergency (ER) | payer OTHER ==
[2017-04-19 14:56] VITALS: BMI 20.9
[2017-04-19] MEDS ORDERED: Albuterol-Ipratrop 3 mg / 0.5 (3 ml) UD IH STA (15:22)
[2017-04-19 15:23] VITALS: RESP 18; TEMP 98.7; O2SAT 98
--- NOTE | 2017-04-19 16:00 | RAD ---
HISTORY: r/o infiltrate COMPARISON: Portable chest 08/13/2016. FINDINGS: LUNGS: No acute infiltrate bilaterally. PLEURA: No acute pleural effusion bilaterally or pneumothorax either. Elevation left hemidiaphragm/ fibrosis left costophrenic sulcus appears stable at the left base laterally. CARDIOVASCULAR: Normal. OSSEOUS STRUCTURES: No significant abnormalities. VISUALIZED UPPER ABDOMEN: Normal. OTHER FINDINGS: None. IMPRESSION: No interval acute cardiopulmonary disease appreciated. Mild elevation of the left hemidiaphragm and left lateral pleural fibrosis again evident.
[2017-04-19 16:09] LABS: BASO # 0.01 K/mm3 (0.0-2.0); BASO % 0.2 % (0.0-3.0); EOS # 0.1 (0.0-0.7); EOS % 0.8 % (1.5-5.0); GRAN # 3.08 (1.4-6.5); GRAN % 52.1 % (50.0-68.0); MEAN CELL VOLUME 88.6 fl (80.0-105.0); MEAN CORPUSCULAR HEMOGLOBIN 28.9 pg (25.0-35.0); MEAN CORPUSCULAR HGB CONC 32.6 g/dl (31.0-37.0); MEAN PLATELET VOLUME 9.6 fl (7.0-11.0); MONO # 0.8 (0.1-0.6); MONO % 13.9 % (1.0-6.0); RBC 5.19 10^6/uL (3.5-6.1); WHITE BLOOD COUNT 5.9 10^3/ul (4.5-11.0)
[2017-04-19] MEDS ORDERED: oxyCODONE 5 mg Immediate Release Tab PO STA (16:21)
[2017-04-19 16:31] LABS: B-TYPE NATRIURETIC PEPTIDE 71.1 pg/mL (0-450); TROPONIN I < 0.01 ng/mL
[2017-04-19 16:39] VITALS: BP 117/84; PULSE 104
--- NOTE | 2017-04-19 18:01 | ED PDOC ---
Arrival/HPI - General Chief Complaint: Shortness Of Breath Time Seen by Provider: 04/19/17 15:06 Historian: Patient - History of Present Illness Narrative History of Present Illness (Text): 04/19/17 17:58 A 61 year old female, whose past medical history includes COPD, presents to the emergency department complaining of shortness of breath since last night. Patient reports her symptom feels similar to prior COPD exacerbation. She notes bilateral leg pain, right greater than left. Patient receives epidural injections for her leg pain; last injection 2 months ago. Patient notes chronic cough but denies any fever, chills, nausea, vomiting, abdominal pain, chest pain or any other complaints. Patient reports her pain management doctor is currently away on vacation. Time/Duration: Other (last night) Symptom Course: Unchanged Quality: Other Context: Home Past Medical History - Provider Review Nursing Documentation Reviewed: Yes - Infectious Disease Hx of Infectious Diseases: None - Tetanus Immunization Tetanus Immunization: Unknown - Cardiac Hx Cardiac Disorders: Yes Hx Hypertension: Yes Hx Peripheral Edema: Yes - Pulmonary Hx Respiratory Disorders: Yes Hx Asthma: Yes Hx Bronchitis: Yes Hx Chronic Obstructive Pulmonary Disease (COPD): Yes - Neurological Hx Neurological Disorder: Yes Hx Dizziness: Yes Hx Migraine: Yes - HEENT Hx HEENT Disorder: No - Renal Hx Renal Disorder: No - Endocrine/Metabolic Hx Endocrine Disorders: No - Hematological/Oncological Hx Blood Disorders: No - Integumentary Hx Dermatological Disorder: No - Musculoskeletal/Rheumatological Hx Musculoskeletal Disorders: Yes Hx Back Pain: Yes Hx Falls: No Hx Herniated Disk: Yes - Gastrointestinal Hx Gastrointestinal Disorders: Yes Hx Diverticulitis: Yes - Genitourinary/Gynecological Hx Genitourinary Disorders: No - Psychiatric Hx Psychophysiologic Disorder: Yes Hx Anxiety: Yes Hx Substance Use: No - Past Surgical History Past Surgical History: No Previous - Surgical History Other/Comment: - Anesthesia Hx Anesthesia: Yes Hx Anesthesia Reactions: No Hx Malignant Hyperthermia: No - Suicidal Assessment Feels Threatened In Home Enviroment: No Family/Social History - Physician Review Nursing Documentation Reviewed: Yes Family/Social History: No Known Family HX Smoking Status: Light Smoker < 10 Cigarettes Daily Hx Alcohol Use: No Hx Substance Use: No Hx Substance Use Treatment: No Allergies/Home Meds Allergies/Adverse Reactions: Allergies No Known Allergies Allergy (Verified 04/19/17 16:27) Home Medications: Home Meds Medication Instructions Recorded Confirmed Metoprolol Tartrate 50 mg PO BID 08/25/13 04/19/17 Aclidinium [place] [Tudorza 400 mcg IH [facility] 05/31/14 04/19/17 Pressair] Acetaminophen/Oxycodone Hydr 10 mg PO Q6 PRN 02/02/16 04/19/17 [Percocet 10/325 mg Tab] Valsartan [Diovan] 320 mg PO DAILY 02/02/16 04/19/17 amLODIPine [Norvasc] 10 mg PO DAILY 02/02/16 04/19/17 oxyCODONE [oxyCONTIN Extended 30 mg PO Q12 02/02/16 04/19/17 Release Tab] Review of Systems - Physician Review All systems were reviewed & negative as marked: Yes - Review of Systems Constitutional: absent: Fevers, Night Sweats Respiratory: SOB, Cough (chronic) Cardiovascular: absent: Chest Pain Gastrointestinal: absent: Abdominal Pain, Nausea, Vomiting Musculoskeletal: Other (Bilateral leg pain, right greater than left) Physical Exam Vital Signs Reviewed: Yes Vital Signs Temp Pulse Resp BP Pulse Ox 04/19/17 16:38 104 H 18 117/84 98 04/19/17 15:23 98.7 F 113 H 18 125/97 H 98 04/19/17 15:20 22 Temperature: Afebrile Blood Pressure: Hypertensive Pulse: Tachycardic Respiratory Rate: Normal Appearance: Positive for: Well-Appearing, Non-Toxic, Comfortable Pain Distress: None Mental Status: Positive for: Alert and Oriented X 3 - Systems Exam Head: Present: Atraumatic, Normocephalic Pupils: Present: PERRL Extroacular Muscles: Present: EOMI Conjunctiva: Present: Normal Mouth: Present: Moist Mucous Membranes Neck: Present: Normal Range of Motion Respiratory/Chest: Present: Good Air Exchange, Wheezes (Mild expiratory wheezing ). No: Respiratory Distress, Accessory Muscle Use Cardiovascular: Present: Regular Rate and Rhythm, Normal S1, S2. No: Murmurs Abdomen: Present: Normal Bowel Sounds. No: Tenderness, Distention, Peritoneal Signs Back: Present: Normal Inspection Upper Extremity: Present: Normal Inspection. No: Cyanosis, Edema Lower Extremity: Present: Normal Inspection. No: Edema Neurological: Present: GCS=15, CN II-XII Intact, Speech Normal Skin: Present: Warm, Dry, Normal Color. No: Rashes Psychiatric: Present: Alert, Oriented x 3, Normal Insight, Normal Concentration Medical Decision Making ED Course and Treatment: 04/19/17 17:58 Impression: A 61 year old female with shortness of breath. Patient notes bilateral leg pain and chronic cough. Plan: -- Chest xray -- EKG -- Labs -- Influenza A B Stat -- Duoneb, Solumedrol and Oxycodone -- Reassess and disposition Progress Notes: EKG shows sinus tachycardia at 105 BPM. Interpreted by me. Report Date : 04/19/2017 15:59:05 Procedure: Chest xray Dictator : Isrrael Olsen MD IMPRESSION: No interval acute cardiopulmonary disease appreciated. Mild elevation of the left hemidiaphragm and left lateral pleural fibrosis again evident. On re-evaluation, patient feels better after treatment. I have discussed the results and plan with the patient, who expresses understanding. Patient in agreement with plan to be discharged home. Patient is stable for discharge. Patient was instructed to follow up with physician or return if symptoms worsen or new concerning symptoms arise. - Lab Interpretations Lab Results: 04/19/17 15:57 Lab Results 04/19/17 15:57: Lactate Dehydrogenase 492, Total Creatine Kinase 48, Troponin I < 0.01, NT-Pro-B Natriuret Pep 71.1 04/19/17 15:57: WBC 5.9 D, RBC 5.19, Hgb 15.0, Hct 46.0, MCV 88.6, MCH 28.9, MCHC 32.6, RDW 13.0, Plt Count 212, MPV 9.6, Gran % 52.1, Lymph % (Auto) 33.0, Lee % (Auto) 13.9 H, Eos % (Auto) 0.8 L, Baso % (Auto) 0.2, Gran # 3.08, Lymph # 2.0, Lee # 0.8 H, Eos # 0.1, Baso # 0.01 04/19/17 15:25: Influenza Typ A,B (EIA) Negative for flu a/b I have reviewed the lab results: Yes - RAD Interpretation Radiology Orders: 04/19/17 15:21 CHEST PORTABLE [RAD] Stat - Medication Orders Current Medication Orders: Discontinued Medications Albuterol/Ipratropium (Duoneb 3 Mg/0.5 Mg (3 Ml) Ud) 3 ml IH Q15M ST[facility] Stop: 04/19/17 15:23 Last Admin: 04/19/17 16:14 Dose: 3 ml Methylprednisolone (Solu-Medrol) 125 mg IVP STAT STA Stop: 04/19/17 15:22 Last Admin: 04/19/17 16:14 Dose: 125 mg IVP Administration Document 04/19/17 16:14 OCS (Rec: 04/19/17 16:14 OCS [facility]) Charges for Administration # of IVP Administrations 1 Oxycodone HCl (Oxycodone Immediate Release Tab) 5 mg PO STAT STA Stop: 04/19/17 16:22 Last Admin: 04/19/17 16:30 Dose: 5 mg MAR Pain Assessment Document 04/19/17 16:30 OCS (Rec: 04/19/17 16:49 OCS [facility]) Pain Reassessment Is this a pain reassessment? Yes Sleep Is patient sleeping during reassessment? No Presence of Pain Presence of Pain Yes Pain Scale Used Pain Scale Used Numeric Location Left, Right or Bilateral Bilateral Pain Location Body Site Leg Description Description Constant - Scribe Statement The provider has reviewed the documentation as recorded by the Rich Melo Provider Scribe Attestation: All medical record entries made by the Scribe were at my direction and personally dictated by me. I have reviewed the chart and agree that the record accurately reflects my personal performance of the history, physical exam, medical decision making, and the department course for this patient. I have also personally directed, reviewed, and agree with the discharge instructions and disposition. Disposition/Present on Arrival - Present on Arrival Any Indicators Present on Arrival: No History of DVT/PE: No History of Uncontrolled Diabetes: No Urinary Catheter: No History of Decub. Ulcer: No History Surgical Site Infection Following: None - Disposition Have Diagnosis and Disposition been Completed?: Yes Diagnosis: Chronic leg pain, COPD (chronic obstructive pulmonary disease) Disposition: HOME/ ROUTINE Disposition Time: 17:30 Condition: GOOD Discharge Instructions (ExitCare): Chronic Pain (ED), COPD (Chronic Obstructive Pulmonary Disease) (ED) Additional Instructions: Thank you for letting us take care of you today. The emergency medical care you received today was directed at your acute symptoms. If you were prescribed any medication, please fill it and take as directed. It may take several days for your symptoms to resolve. Return to the Emergency Department if your symptoms worsen, do not improve, or if you have any other problems. Please contact your doctor or call one of the physicians/clinics you have been referred to that are listed on the Patient Visit Information form that is included in your discharge packet. Bring any paperwork you were given at discharge with you along with any medications you are taking to your follow up visit. Our treatment cannot replace ongoing medical care by a primary care provider (PCP) outside of the emergency department. Thank you for allowing the [employer] team to be part of your care today. Follow up with your primary doctor in 2-3 days for re-evaluation and further management. Prescriptions: oxyCODONE [oxyCODONE Immediate Release Tab] 5 mg PO Q6 PRN #15 tab PRN Reason: Pain, Severe (8-10) predniSONE [Prednisone] 40 mg PO DAILY #10 tab Referrals: Vik Schneider MD [Primary Care Provider] - Follow up with primary Forms: [employer] ([place])
--- NOTE | 2017-04-20 12:32 | CARD ---
APPROVED REPORT EKG Measurement Heart [id number] <Conclusion> Sinus tachycardia Possible Left atrial enlargement Borderline ECG
== END 2017-04-19 17:55 | disposition home or self-care (01) ==
LOC: ED 14:56
DX: J44.9 Chronic obstructive pulmonary disease, unspecified (principal); M79.605 Pain in left leg; M79.604 Pain in right leg; I10 Essential (primary) hypertension; F17.210 Nicotine dependence, cigarettes, uncomplicated
CPT/HCPCS: 71045; 82550; 83615; 83880; 84484; 85025; 87804; 93005; 96374; 99283; J2930

== ENCOUNTER 2017-05-11 09:44 | Inpatient (IN) | payer OTHER ==
[2017-05-11] MEDS ORDERED: Albuterol-Ipratrop 3 mg / 0.5 (3 ml) UD IH STA (10:00)
--- NOTE | 2017-05-11 10:01 | ED PDOC ---
Arrival/HPI - General Chief Complaint: Shortness Of Breath Time Seen by Provider: 05/11/17 09:57 Historian: Patient EM Caveat: Acuity of Condition - History of Present Illness Narrative History of Present Illness (Text): 05/11/17 15:56 pt p/w + 3-4 days onset of progressively worsening sob/wheezing, and frequent use/need for nebulizer use at home; pt states the last 24hours was the worse for her sob/wheezing; pt states now she is unable to speak a few words in a sentence before needing to take a deep breath; pt has not able to smoke her regular smoke due to her sob; pt states + dry coughing, no fever/chills/sweats, no new cp, no palpitations, no abd pain, no n/v, no numbness/tingling, no urinary/bowel changes, no fall/trauma/sick contact, no travel; pt denied LOC; pt denied other complaints; pt is here for further eval. 05/11/17 16:06 pt was seen in the hospital ~ 2 weeks ago for similar complaints but less severe compare to today; pt has not seen pcp since last year Time/Duration: < week Symptom Onset: Gradual Symptom Course: Worsening Severity Level: 7 Activities at Onset: Rest Context: Home Past Medical History - Provider Review Nursing Documentation Reviewed: Yes - Travel History Have you recently traveled outside [place] w/in the past 3 mons?: No - Past History Past History: No Previous - Infectious Disease Hx of Infectious Diseases: None - Tetanus Immunization Tetanus Immunization: Unknown - Reproductive Menopause: Yes - Cardiac Hx Cardiac Disorders: Yes Hx Hypertension: Yes Hx Peripheral Edema: Yes - Pulmonary Hx Respiratory Disorders: Yes Hx Asthma: Yes Hx Bronchitis: Yes Hx Chronic Obstructive Pulmonary Disease (COPD): Yes - Neurological Hx Neurological Disorder: Yes Hx Dizziness: Yes Hx Migraine: Yes - HEENT Hx HEENT Disorder: No - Renal Hx Renal Disorder: No - Endocrine/Metabolic Hx Endocrine Disorders: No - Hematological/Oncological Hx Blood Disorders: No - Integumentary Hx Dermatological Disorder: No - Musculoskeletal/Rheumatological Hx Musculoskeletal Disorders: Yes Hx Back Pain: Yes Hx Falls: No Hx Herniated Disk: Yes - Gastrointestinal Hx Gastrointestinal Disorders: Yes Hx Diverticulitis: Yes - Genitourinary/Gynecological Hx Genitourinary Disorders: No - Psychiatric Hx Psychophysiologic Disorder: Yes Hx Anxiety: Yes Hx Substance Use: No - Past Surgical History Past Surgical History: No Previous - Surgical History Other/Comment: - Anesthesia Hx Anesthesia: Yes Hx Anesthesia Reactions: No Hx Malignant Hyperthermia: No - Suicidal Assessment Feels Threatened In Home Enviroment: No Family/Social History - Physician Review Nursing Documentation Reviewed: Yes Family/Social History: No Known Family HX Smoking Status: Light Smoker < 10 Cigarettes Daily Hx Alcohol Use: No Hx Substance Use: No Hx Substance Use Treatment: No Allergies/Home Meds Allergies/Adverse Reactions: Allergies No Known Allergies Allergy (Verified 04/19/17 16:27) Home Medications: Home Meds Medication Instructions Recorded Confirmed Metoprolol Tartrate 50 mg PO BID 08/25/13 05/11/17 Aclidinium Lovilia [Tudorza 400 mcg IH [facility] 05/31/14 05/11/17 Pressair] Valsartan [Diovan] 320 mg PO DAILY 02/02/16 05/11/17 amLODIPine [Norvasc] 10 mg PO DAILY 02/02/16 05/11/17 oxyCODONE [oxyCONTIN Extended 30 mg PO Q12 02/02/16 05/11/17 Release Tab] Prednisone [Deltasone] 0 mg PO DAILY 05/11/17 05/11/17 oxyCODONE [oxyCODONE Immediate 10 mg PO Q6 PRN 05/11/17 05/11/17 Release Tab] Review of Systems - Review of Systems Constitutional: Normal Eyes: Normal ENT: Normal Respiratory: SOB, Cough, Wheezing Cardiovascular: absent: Chest Pain, Palpitations Gastrointestinal: Normal Genitourinary Female: Normal Musculoskeletal: Normal Skin: Normal Neurological: Normal Endocrine: Normal Hemo/Lymphatic: Normal Psychiatric: Normal Physical Exam Vital Signs Reviewed: Yes Vital Signs Temp Pulse Resp BP Pulse Ox 05/11/17 12:00 99 H 19 136/90 100 05/11/17 10:00 98.9 F 95 H 16 131/92 H 100 Temperature: Afebrile Blood Pressure: Hypertensive Pulse: Regular Respiratory Rate: Tachypneic Appearance: Positive for: Well-Appearing, Non-Toxic, Other (uncomfortable, moderate distress due to resp distress, alert/awake, GCS = 15, oriented x 3, cooperative) Pain Distress: Moderate Mental Status: Positive for: Alert and Oriented X 3 - Systems Exam Head: Present: Atraumatic, Normocephalic Pupils: Present: PERRL, Other (visual field intact b/l, no photophobia, sclera anicteric) Extroacular Muscles: Present: EOMI Conjunctiva: Present: Normal Ears: Present: Normal Mouth: Present: Moist Mucous Membranes, Normal Teeth Pharnyx: Present: Normal Nose (External): Present: Atraumatic Nose (Internal): Present: Normal Inspection Neck: Present: Normal Range of Motion, Trachea Midline. No: MIDLINE TENDERNESS Respiratory/Chest: Present: Good Air Exchange, Other (no accessory muscle use noted, poor aeration is noted, mild tachypenia, basiliar wheezing noted, no rales/rhonchi) Cardiovascular: Present: Regular Rate and Rhythm, Normal S1, S2 Abdomen: Present: Normal Bowel Sounds, Other (well nourished female, no focal tenderness, no masses/rebound/guarding/rigidity, no yi's sign, no mcburney' s point tenderness) Back: Present: Normal Inspection. No: Midline Tenderness Upper Extremity: Present: Normal Inspection, Normal ROM, NORMAL PULSES, Neurovascularly Intact Lower Extremity: Present: Normal Inspection, NORMAL PULSES, Normal ROM, Neurovascularly Intact Neurological: Present: GCS=15, CN II-XII Intact Skin: Present: Warm, Other (cap refill ~ 1 sec, no ulcerations, no petechiae) Psychiatric: Present: Alert, Oriented x 3 Medical Decision Making ED Course and Treatment: 05/11/17 10:03 Impression: sob, wheezing Plan: -- EKG -- Chest X-ray -- Labs -- Urinalysis -- Rapid Flu Test -- Duoneb -- Ecotrin -- Magnesium Sulfate IV Fluids -- SOLU-Medrol -- Venous Blood Gas -- Nasal Cannula O2 -- Reassess and disposition Prior Visits: Notes and results from previous visits were reviewed. Patient was last seen in the emergency department on 04/19/2017 for shortness of breath. Patient was d/c home. Progress Notes: 05/11/2017 12:33 Chest X-ray IMPRESSION: No active pulmonary disease. Dictator: Violetta South MD 05/11/17 13:10 Patient indicated slight improvement, still experiencing shortness of breath. Prescribed continuous nebulizer treatment and recommended patient for admission , which patient has agreed to. 05/11/2017 13:[address] Garcia, whom has been made aware of patient's ED presentation/medical txt/diagnosis; Agrees with plan and agrees with admission 05/11/17 15:49 lung re-exam: slight improvement of lung aeration, faint basiliar wheezing noted ; no tachypenia, no accessory muscle use noted, no rales/rhonchi pt is made aware of her medical results agrees with admission Re-evaluation Time: 15:07 Reassessment Condition: Improving,but remains with symptoms - Critical Care Critical Care Minutes: 45 minutes Critical Care Time: Excluding Proc Time Narrative Critical Care (Text): 05/11/17 15:51 critical care time: 45min, excluding procedure time, excluding time teaching residents/students/mid-level providers; including initial eval/diagnosis, diagnostic interpretation, re-eval, consultations, final disposition - Lab Interpretations Lab Results: 05/11/17 10:20 05/11/17 10:20 Lab Results 05/11/17 13:10: Urine Color Yellow, Urine Appearance Clear, Urine pH 6.5, Ur Specific [place] 1.010, Urine Protein Negative, Urine Glucose (UA) Negative, Urine Ketones Negative, Urine Blood Negative, Urine Nitrate Negative, Urine Bilirubin Negative, Urine Urobilinogen 0.2, Ur Leukocyte Esterase Negative 05/11/17 10:33: pO2 21 L, VBG pH 7.28 L, VBG pCO2 76.0 H*, VBG HCO3 35.7 H, VBG Total CO2 38.0 H, VBG O2 Sat (Calc) 41.7, VBG Base Excess 6.2 H, VBG Potassium 4.3, Glucose 104, Lactate 1.2, FiO2 21.0, Sodium 137.0, Chloride 102.0, Venous Blood Potassium 4.3 05/11/17 10:20: Sodium 136, Potassium 3.8, Chloride 101, Carbon Dioxide 29, Anion Gap 10, BUN 8, Creatinine 0.9, Est GFR ( Amer) > 60, Est GFR (Non- Af Amer) > 60, Random Glucose 98, Calcium 9.6, Total Bilirubin 0.6, AST 29, ALT 24, Alkaline Phosphatase 79, Lactate Dehydrogenase 554, Total Creatine Kinase 52 , Troponin I < 0.01, NT-Pro-B Natriuret Pep 83.5, Total Protein 7.1, Albumin 3.9 , Globulin 3.2, Albumin/Globulin Ratio 1.2 05/11/17 10:20: WBC 5.8, RBC 4.85, Hgb 13.5, Hct 44.8, MCV 92.4 D, MCH 27.8, MCHC 30.1 L, RDW 13.0, Plt Count 215, MPV 9.5, Gran % 35.9 L, Lymph % (Auto) 46.6 H, [place] % (Auto) 14.2 H, Eos % (Auto) 2.8, Baso % (Auto) 0.5, Gran # 2.08, Lymph # 2.7, [place] # 0.8 H, Eos # 0.2, Baso # 0.03 05/11/17 10:05: Influenza Typ A,B (EIA) Negative for flu a/b I have reviewed the lab results: Yes Interpretation: Abnormal lab values (slightly elevated PCO2, otherwise WNL lab results) - RAD Interpretation Radiology Orders: 05/11/17 10:02 CHEST PORTABLE [RAD] Stat CXR - chronic left hemidiaphragm, no infiltrates/lesions, read by radiology Fire Safety Manager: Radiologist - EKG Interpretation EKG Interpretation (Text): 05/11/17 15:54 NSR at 95 bpm, normal axis, no ectopy, non-specific st-t changes, ABNL EKG; unchanged compare with prior EKG 04/2017 Interpreted by ED Physician: Yes Type: 12 lead EKG Comparison: Similar to previous EKG - Medication Orders Current Medication Orders: Discontinued Medications Albuterol Sulfate (Albuterol 0.083% Inhal Mitzy (2.5 Mg/3 Ml) Ud) 2.5 mg INH STAT STA Stop: 05/11/17 13:24 Last Admin: 05/11/17 13:57 Dose: 2.5 mg Aspirin (Ecotrin) 81 mg PO STAT STA Stop: 05/11/17 10:02 Last Admin: 05/11/17 10:18 Dose: 81 mg Magnesium Sulfate/Dextrose (Magnesium Sulfate 1 Gm/100 Ml D5w) 1 gm in 100 mls @ 100 mls/hr IVPB ONCE ONE Stop: 05/11/17 11:02 Last Admin: 05/11/17 10:18 Dose: 100 mls/hr eMAR Start Stop Document 05/11/17 10:18 SF (Rec: 05/11/17 10:18 SF [id number]) Intravenous Solution Start Date 05/11/17 Start Time 10:18 End Date 05/11/17 End time 11:18 Total Infusion Time 60 Methylprednisolone (Solu-Medrol) 125 mg IVP STAT STA Stop: 05/11/17 10:04 Last Admin: 05/11/17 10:18 Dose: 125 mg IVP Administration Document 05/11/17 10:18 SF (Rec: 05/11/17 10:18 SF [id number]) Charges for Administration # of IVP Administrations 1 Disposition/Present on Arrival - Present on Arrival Any Indicators Present on Arrival: No History of DVT/PE: No History of Uncontrolled Diabetes: No Urinary Catheter: No History of Decub. Ulcer: No History Surgical Site Infection Following: None - Disposition Have Diagnosis and Disposition been Completed?: Yes Diagnosis: Acute exacerbation of chronic obstructive pulmonary disease (COPD), Acute respiratory distress Disposition: HOSPITALIZED Disposition Time: 14:30 Patient Plan: Admission, Telemetry Patient Problems: Current Active Problems Problem Status Onset Acute exacerbation of chronic obstructive pulmonary disease (COPD) Acute Condition: STABLE
[2017-05-11] MEDS ORDERED: Albuterol-Ipratrop 3 mg / 0.5 (3 ml) UD ONE (10:02)
[2017-05-11] MEDS ORDERED: Magnesium Sulfate 1 gm in D5W 1 GM/100 ML BAG IVPB ONE (10:03)
[2017-05-11 10:28] LABS: BASO # 0.03 K/mm3 (0.0-2.0); BASO % 0.5 % (0.0-3.0); EOS # 0.2 (0.0-0.7); EOS % 2.8 % (1.5-5.0); GRAN # 2.08 (1.4-6.5); GRAN % 35.9 % (50.0-68.0); HEMOGLOBIN 13.5 g/dL (12.0-16.0); LYMPH # 2.7 (1.2-3.4); LYMPH % 46.6 % (22.0-35.0); MEAN CELL VOLUME 92.4 fl (80.0-105.0); MEAN CORPUSCULAR HEMOGLOBIN 27.8 pg (25.0-35.0); MEAN CORPUSCULAR HGB CONC 30.1 g/dl (31.0-37.0); MEAN PLATELET VOLUME 9.5 fl (7.0-11.0); MONO # 0.8 (0.1-0.6); MONO % 14.2 % (1.0-6.0); RBC 4.85 10^6/uL (3.5-6.1); WHITE BLOOD COUNT 5.8 10^3/ul (4.5-11.0)
[2017-05-11 10:37] LABS: ALB/GLOB RATIO 1.2 (1.1-1.8); ALBUMIN 3.9 g/dL (3.0-4.8); ALT/SGPT 24 U/L (7-56); AST/SGOT 29 U/L (14-36); BLOOD UREA NITROGEN 8 mg/dL (7-21); CALCIUM 9.6 mg/dL (8.4-10.5); GFR AFRICAN-AMERICAN > 60; GFR NON-AFRICAN AMERICAN > 60
[2017-05-11 10:40] LABS: VENOUS BLOOD GAS BASE EXCESS 6.2 mmol/L (0.0-2.0); VENOUS BLOOD GAS PO2 21 mm/Hg (30-55); VENOUS BLOOD PH 7.28 (7.32-7.43)
[2017-05-11 10:49] LABS: B-TYPE NATRIURETIC PEPTIDE 83.5 pg/mL (0-450); TROPONIN I < 0.01 ng/mL
--- NOTE | 2017-05-11 12:35 | RAD ---
HISTORY: sob, cant breath COMPARISON: 04/19/2017 FINDINGS: LUNGS: The lungs are hyperinflated and there is peribronchial thickening with chronic changes in both lungs. . PLEURA: There is left pleural thickening, no pneumothorax apparent. CARDIOVASCULAR: Normal. OSSEOUS STRUCTURES: No significant abnormalities. VISUALIZED UPPER ABDOMEN: Normal. OTHER FINDINGS: There is chronic elevation of the left hemidiaphragm IMPRESSION: COPD. No active pulmonary disease.
[2017-05-11] MEDS ORDERED: Albuterol 0.083% Inhal Sol (2.5 mg/3 mL) UD INH STA (13:23)
[2017-05-11 13:24] LABS: PH,URINE 6.5 (4.7-8.0); URINE BILIRUBIN NEGATIVE (NEGATIVE); URINE BLOOD NEGATIVE (NEGATIVE); URINE GLUCOSE (UA) NEGATIVE (NEGATIVE); URINE LEUKOCYTE ESTERASE NEGATIVE Leu/uL (NEGATIVE); URINE NITRATE NEGATIVE (NEGATIVE); URINE PROTEIN NEGATIVE mg/dL (<30 mg/dL); URINE UROBILINOGEN 0.2 E.U./dL (<1 E.U./dL)
[2017-05-11 13:27] LABS: URINE APPEARANCE CLEAR (CLEAR); URINE COLOR YELLOW (YELLOW)
--- NOTE | 2017-05-11 17:58 | CARD ---
APPROVED REPORT EKG Measurement Heart [id number] DC [id number] [id number] <Conclusion> Poor data quality, interpretation may be adversely affected Normal sinus rhythm Possible Left atrial enlargement Borderline ECG
[2017-05-11] MEDS: oxyCODONE 10 mg ER Tab (oxyCONTIN) PO SCH (23:40)
[2017-05-11] MEDS: oxyCODONE 5 mg Immediate Release Tab PO PRN (23:42)
[2017-05-12] MEDS: Albuterol-Ipratrop 3 mg / 0.5 (3 ml) UD IH PRN ×3 (00:15→22:00)
[2017-05-12 00:51] VITALS: BMI 20.1
[2017-05-12] MEDS: Budesonide 0.5 mg/2 ml Inhal Susp UD IH SCH ×2 (07:50→22:00)
--- NOTE | 2017-05-12 08:17 | CON ---
DATE: 05/12/2017 PULMONARY CONSULTATION REASON FOR CONSULTATION: Chronic obstructive pulmonary disease. REFERRING PHYSICIAN: Andrew Osuna MD HISTORY OF PRESENT ILLNESS: The patient is a 61-year-old female, with past medical history significant for chronic obstructive pulmonary disease, positive extensive smoking history - still smokes, asthma, hypertension, who presents to [facility] with a 4-day history of worsening shortness of breath at rest, dyspnea on exertion, and cough. There is no history of significant sputum production. There is no history of chest pain, coughing up of blood, or chest pain - made worse with deep respirations. There is no history of temperatures, chills or infectious exposure. There is no history of night sweats, weight loss or appetite change prior to the above events. No history of leg or calf pains. No history of syncope or diaphoresis. No history of recent travel or trauma. REVIEW OF SYSTEMS: No history of nausea, vomiting or diarrhea. No acute urinary symptoms. No new neurologic or musculoskeletal complaints. Rest of the review of systems negative. ALLERGIES: NO KNOWN ALLERGIES. SOCIAL HISTORY: Positive for extensive tobacco usage - still smokes, no alcohol. FAMILY HISTORY: No inheritable diseases. HOME MEDICATIONS: Include Ativan, QVAR, Ventolin, Norvasc, metoprolol, Anoro Ellipta, oxycodone and Diovan. PHYSICAL EXAMINATION: GENERAL: The patient is not short of breath at rest. She is not using accessory muscles for breathing. VITAL SIGNS: Temperature is 97.9, pulse 100, respirations 18, blood pressure 111/66. Oxygen saturation on nasal cannula ranges between 94-98%. HEENT: Normocephalic, atraumatic. NECK: No JVD. CARDIOVASCULAR: Systolic ejection murmur at the lower left sternal border. No S3 gallop. LUNGS: Decreased breath sounds at the bases. Minimal bilateral rhonchi. Few wheezes are also appreciated. EXTREMITIES: No clubbing, cyanosis or edema. Calves are nontender to palpation. GI: Abdomen is soft, nontender and nondistended. Bowel sounds are positive. SKIN: No acute rash. NEUROLOGIC: Exam limited at the present time. PERTINENT LABORATORY DATA: Chest x-ray was done yesterday and reviewed. There is no active pulmonary disease noted. CBC: White count 5.8, hemoglobin 13.5, hematocrit 44.8, platelets of 215,000. Complete metabolic profile is completely within normal limits. IMPRESSION: 1. Acute bronchitis. 2. Chronic obstructive pulmonary disease. 3. Asthma. 4. Hypertension. PLAN: The patient presents to [facility] with a 4-day history of worsening pulmonary symptoms. I did review the chest x-ray as above. The chest x-ray shows no active disease. On physical exam, there is mild bronchospasm noted. I will continue with the current nebulizer treatments and add inhaled budesonide. The patient is on a QVAR at home. I will also add low-dose intravenous steroids this morning. Lastly, due to her age and above diagnoses, I will also place the patient on oral antibiotic therapy. There are no temperatures noted. There is no leukocytosis. The patient does state to feeling much better this morning, and is clinically improved - compared to the past few days. Additional pulmonary intervention will be based on the clinical status of the patient. I will discuss the above with Dr. Osuna. Thank you very much for this pulmonary consultation. Mono Bronson MD REBECCA
[2017-05-12] MEDS ORDERED: Barium Sulfate Susp 2.1% w/v, 2.0% w/w 450 mL Bottle PO ONE (08:37)
[2017-05-12] MEDS: levoFLOXacin 500 MG TAB PO SCH (09:57)
[2017-05-12] MEDS: Albuterol-Ipratrop 3 mg / 0.5 (3 ml) UD IH SCH ×2 (10:00→13:46)
[2017-05-12] MEDS: oxyCODONE 10 mg ER Tab (oxyCONTIN) PO SCH ×2 (10:02→21:25)
[2017-05-12] MEDS: MethylPREDNISolone 40 mg Vial IVP SCH ×2 (10:03→21:26)
[2017-05-12] MEDS ORDERED: Iohexol 350 MG/100 ML VIAL ONE (11:10)
--- NOTE | 2017-05-12 13:38 | CT ---
PROCEDURE: CT Abdomen and Pelvis with contrast HISTORY: Abd pain LLQ COMPARISON: None. TECHNIQUE: CT scan of the abdomen and pelvis was performed after intravenous administration of contrast. Oral contrast was administered. Coronal and sagittal reformatted images were obtained. Contrast dose: 100 mL Omnipaque 350 Radiation dose: Total exam DLP = 197.16 mGy-cm. This CT exam was performed using one or more of the following dose reduction techniques: Automated exposure control, adjustment of the mA and/or kV according to patient size, and/or use of iterative reconstruction technique. FINDINGS: LOWER THORAX: The visualized lungs are clear. LIVER: Normal in size with homogeneous enhancement. No focal liver mass. There is mild intrahepatic biliary dilatation. GALLBLADDER AND BILE DUCTS: There are no calcified gallstones. There is moderate diffuse dilatation of the common bile duct without CT evidence for choledocholithiasis. The common bile duct measures 7 mm. PANCREAS: Normal in size with homogeneous enhancement. No gross lesion or ductal dilatation. SPLEEN: Normal in size and appearance. ADRENALS: No discrete nodule. KIDNEYS AND URETERS: Both kidneys are normal in size and there is homogeneous enhancement without focal. No hydronephrosis. There is a subcentimeter simple cortical cyst in the interpolar region of the right kidney posteriorly. VASCULATURE: There is a large fusiform infrarenal aortic aneurysm measuring 3.0 x 3.0 cm in timmy posterior and transverse dimension with anterior and lateral mural thrombus. There are atherosclerotic aortoiliac calcifications. BOWEL: The small bowel loops are normal in caliber. There is large amount of stool in the colon and fecal stasis in the rectum, sigmoid colon and distal descending colon. APPENDIX: Normal appendix. PERITONEUM: No free fluid. No free air. LYMPH NODES: No enlarged lymph nodes. BLADDER: Unremarkable. REPRODUCTIVE: The uterus is normal in size. BONES: No acute fracture. Mild degenerative disc disease at L5-S1. Sign OTHER FINDINGS: None. IMPRESSION: 1. Large fusiform infrarenal aortic aneurysm measuring 2.0 x 3.0 cm in timmy posterior and transverse dimensions with anterior and lateral mural thrombus. 2. Constipation with fecal stasis in the rectum, sigmoid colon and distal descending colon. No evidence of bowel obstruction. 3. Mild intrahepatic biliary ductal dilatation and moderate diffuse dilatation of the common bile duct without CT evidence for choledocholithiasis. If clinically indicated, an MRCP may performed to exclude distal obstruction.
[2017-05-12] MEDS: POLYETHYLENE GLYCOL 3350 17 GM/Dose PACKET PO SCH ×2 (14:14→17:12)
--- NOTE | 2017-05-12 15:48 | HP ---
CHIEF COMPLAINT AND HISTORY OF PRESENT ILLNESS: This is a 61-year-old female who is coming into the hospital complaining of shortness of breath. She says that she has been having worsening shortness of breath for 3 to 4 days. She has been wheezing. The patient says she has been using a nebulizer at home. She says that over the last 24 hours prior to coming to the hospital, her symptoms were worsening. She says that she is unable to speak in full sentences because of the shortness of breath. She does have a history of smoking actively. She does have a cough, it is mostly dry. She has no abdominal pain or back pain, no chest pain. No weakness in the arms or the legs. No dysuria or frequency. No nocturia. No headaches or dizziness. REVIEW OF SYMPTOMS: All other review of symptoms are within normal limits except as mentioned. ALLERGIES: NO KNOWN DRUG ALLERGIES. HOME MEDICATIONS: Metoprolol, Diovan, Norvasc, OxyContin 30 mg q. 12, and oxycodone 10 mg q. 6. SOCIAL HISTORY: She smokes less than 10 cigarettes per day. FAMILY HISTORY: Noncontributory. PAST MEDICAL HISTORY: Hypertension, peripheral neuropathy, syncope, chronic back pain, gait dysfunction, and COPD. PHYSICAL EXAMINATION: VITAL SIGNS: The patient has temperature of 97.9, pulse of 103, blood pressure 111/66, respirations of 20, and O2 saturation of 94%. Height is 5 feet 6 inches and weight is 125 pounds. BMI is 20. GENERAL: The patient lying in bed, uncomfortable, and in no acute distress. HEENT: Atraumatic and normocephalic. Anicteric sclerae. Moist mucosa. [place] conjunctivae. No oral lesions. NECK: No JVD, anterior and posterior adenopathy, thyromegaly, or bruits. CARDIOVASCULAR: S1 and S2 regular. No murmur, rubs, or gallop. LUNGS: Clear to auscultation bilaterally. No wheezes, rales, or rhonchi. ABDOMEN: Bowel sounds are positive. Soft, nontender and nondistended. No hepatosplenomegaly. No rebound and no guarding. EXTREMITIES: No cyanosis, clubbing, or edema. NEUROLOGIC: No facial asymmetry. Tongue is midline. No uvula deviation. Power is 5/5 upper extremity and lower extremity. Sensation intact in upper extremity and lower extremity. PSYCHIATRIC: She is awake, alert and oriented x3. No anxiety or depression. She has normal affect. GENITOURINARY: No CVA tenderness. VASCULAR: 2+ pulses in the carotid pulses and pedal pulses. SKIN: No erythema or nodules. SPINE: Shows normal curvature. LABORATORY DATA: White count of 5.8, hemoglobin 13.5. ABG shows a pH of 7.28 with a pCO2 of 76. The patient's bicarbonate is 29, creatinine is 0.9, alkaline phosphatase is 79, and albumin is 3.9. Urine shows ketones are negative, blood is negative, and nitrites are negative. Serology shows influenza is negative. Chest x-ray done shows no active pulmonary disease. EKG shows heart rate of 97, it is in the sinus rhythm. There is borderline left atrial enlargement. ASSESSMENT: 1. Acute chronic obstructive pulmonary disease exacerbation. 2. Hypertension. 3. Smoking. 4. Chronic back pain. PLAN: The patient is going to be admitted to the hospital. She is going to be seen by Dr. Bronson for her COPD exacerbation. She is on Diovan for her hypertension. She is going to be on nebulizer treatment. She is on aspirin daily . She has been started on IV antibiotics by Dr. Bronson with Levaquin. I did speak to Dr. Bronson regarding the case. The patient is on oxycodone for her breakthrough pain and OxyContin for long-term management of her pain from her back. She is on steroids. The patient is on oxygen. She is on a heart healthy diet. She should improve fairly quickly. She probably can be discharged home within the next 24 hours if her symptoms are improved. She is also complaining of weight loss. I will get Dr. Llanos to see the patient. She had a CT of the abdomen and pelvis ordered because of pain that she was having in the left lower quadrant. Andrew Osuna MD
[2017-05-12] MEDS: oxyCODONE 5 mg Immediate Release Tab PO PRN (19:52)
--- NOTE | 2017-05-12 20:46 | CON ---
DATE: 05/12/2017 REQUESTING PHYSICIAN: Dr. Osuna. REASON FOR CONSULT: I have been asked to see this 61-year-old female who was admitted to the hospital for shortness of breath secondary to acute bronchitis and possible exacerbation of COPD, unexplained weight loss. HISTORY OF PRESENT ILLNESS: The patient apparently has lost 10 pounds over the last 6 months. The patient has been on oxycodone for several years due to chronic back pain. She has opioid-induced constipation with straining to move her bowels despite polyethylene glycol. The patient was prescribed Movantik several years ago, but could not tolerate this due to severe abdominal cramps. The patient had an upper endoscopy in 05/2015, which showed Brigitte esophagitis, gastritis and Justus's gland hyperplasia of the duodenum. Colonoscopy at that time revealed multiple tubular adenoma in the ascending and descending colon as well as left-sided diverticulosis. The patient continues to complain of constipation with a sense of fecal urgency. She denies any rectal bleeding, nausea or vomiting. The patient's son states that the patient has had poor appetite over the last several months. She denies any nausea or vomiting. She continues to smoke cigarettes despite her COPD. She currently denies any fevers or chills. She did have dyspnea with minimal exertion at home. Chest x-ray revealed hyperinflation of the lungs consistent with COPD and chronic elevation of the left hemidiaphragm. PAST MEDICAL HISTORY: Notable for COPD, bronchitis, colon polyps, Brigitte esophagitis, gastritis, weight loss, hypertension, asthma, migraine headaches, chronic back pain, herniated lumbar disc, anxiety disorder. SOCIAL HISTORY: Patient has smoked between a pack to two packs of cigarettes for many years. She currently smokes approximately a half-pack of cigarettes per day. She denies alcohol use. FAMILY HISTORY: Noncontributory. REVIEW OF SYSTEMS: A 14-point review of systems is positive for dyspnea at rest, weight loss, anorexia and constipation. MEDICATIONS AT HOME: Include Ativan 0.5 mg daily as needed for anxiety, QVAR 80 mcg inhaled twice a day, Ventolin inhaler q.6 hours as needed for shortness of breath, amlodipine 10 mg once a day, metoprolol 50 mg twice a day, Anoro Ellipta inhaler once a day, extended release OxyContin 30 mg q.12 hours, immediate release oxycodone 10 mg q.6 hours as needed for back pain and Diovan 320 mg daily. PHYSICAL EXAMINATION: GENERAL: Thin female lying in bed, in no distress. Her BMI is 20.2. VITAL SIGNS: Reveal temperature of 97.9, blood pressure 111/66, heart rate of 100. HEENT: Reveal sclerae to be white. Conjunctivae pale. NECK: Supple. CHEST: Reveal distant breath sounds. HEART: Reveals a regular rate and rhythm. ABDOMEN: Soft, nontender. No mass. EXTREMITIES: Show no edema. RECTAL: Shows a fecal impaction with formed stool present in the rectum. LABORATORY DATA: Revealed white blood cell count 5.8, hemoglobin 13.5. Chemistries reveal normal electrolytes. Influenza is negative. Urinalysis is normal. IMPRESSION: A 61-year-old female admitted to the hospital with dyspnea on exertion secondary to acute bronchitis and possible on exacerbation of chronic obstructive pulmonary disease, whom I have been asked to see for 10-pound weight loss over 6 months. The patient has opioid induced constipation as well as poor appetite. She had an endoscopy and colonoscopy approximately 2 years ago which revealed Brigitte esophagitis, gastritis and Justus's gland hyperplasia of the duodenum as well as diverticulosis and multiple tubular adenoma in the ascending and descending colon as well as hemorrhoids. She appears to have a hard fecal impaction at this time. RECOMMENDATIONS: 1. Await CT scan of the abdomen and pelvis. 2. We would check thyroid studies to rule out hyperthyroidism. 3. We will order a bowel regimen including MiraLAX and Dulcolax. Marcus Llanos MD
[2017-05-12] MEDS: Bisacodyl 5mg EC Tab PO SCH (21:25)
[2017-05-13] MEDS ORDERED: guaiFENesin 100 mg/5 ml Syrup UD PO PRN (06:42)
[2017-05-13] MEDS: Budesonide 0.5 mg/2 ml Inhal Susp UD IH SCH ×2 (07:46→19:24)
[2017-05-13] MEDS: Albuterol-Ipratrop 3 mg / 0.5 (3 ml) UD IH SCH ×4 (07:46→19:24)
[2017-05-13 07:47] LABS: FREE T4 1.05 ng/dL (0.78-2.19)
--- NOTE | 2017-05-13 07:56 | PN ---
DATE: 05/13/2017 PULMONARY PROGRESS NOTE SUBJECTIVE: The patient appears very comfortable this morning. She is not short of breath at rest. PHYSICAL EXAMINATION: VITAL SIGNS: (Last noted in the computer): Temperature is 98.6, pulse is 88, respirations are 18/20, and blood pressure is 112/67. Oxygen saturation on room air is 96%. HEENT: Normocephalic and atraumatic. NECK: No JVD. CARDIOVASCULAR: Systolic ejection murmur at the lower left sternal border. No S3 gallop. LUNGS: Improved breath sounds at the bases. Very minimal/less rhonchi. No wheezing. EXTREMITIES: No clubbing, cyanosis or edema. Calves are nontender to palpation. GASTROINTESTINAL: Abdomen is soft, nontender and nondistended. Bowel sounds are positive. SKIN: No acute rash. NEUROLOGIC: Exam is limited at the present time. IMPRESSION 1. Acute bronchitis. 2. Chronic obstructive pulmonary disease. 3. Asthma. 4. Hypertension. PLAN: The patient appears very comfortable this morning. She is not short of breath at rest. She does state to some cough during the night. However, she also states to feeling much better overall. On physical exam, there is certainly less bronchospasm noted. In addition, the oxygen saturation on room air is 96%. I will continue the current nebulizer treatments and decrease the intravenous steroids this morning. I will also order some Robitussin to be used on a p.r.n. basis. The patient remains on oral antibiotic therapy. There are no temperatures noted. There is no leukocytosis. Pulmonary status for the patient is definitely improved - compared to the initial presentation. I will discuss the above with Dr. Osuna. Mono Bronson MD [facility]
[2017-05-13] MEDS: MethylPREDNISolone 40 mg Vial IVP SCH ×2 (10:07→22:30)
[2017-05-13] MEDS: levoFLOXacin 500 MG TAB PO SCH (10:07)
[2017-05-13] MEDS: POLYETHYLENE GLYCOL 3350 17 GM/Dose PACKET PO SCH ×3 (10:07→18:18)
[2017-05-13] MEDS: oxyCODONE 10 mg ER Tab (oxyCONTIN) PO SCH ×2 (10:39→22:28)
[2017-05-13] MEDS ORDERED: Magnesium Citrate Oral SOL (300 ml) PO ONE (11:44)
[2017-05-13] MEDS ORDERED: Gadodiamide 287 MG/ML VIAL (15ML) IV ONE (13:32)
--- NOTE | 2017-05-13 13:40 | PN ---
DATE: 05/13/2017 SUBJECTIVE: The patient is walking around her room, comfortable. She denies any abdominal pain. She had a small bowel movement yesterday. She denies any abdominal pain, nausea, vomiting. PHYSICAL EXAMINATION: VITAL SIGNS: Reveal temperature of 98.2, blood pressure 101/56, heart rate of 89. HEENT: Reveal sclerae to be white. Conjunctivae pink. NECK: Supple. CHEST: Lungs are clear. HEART: Reveals regular rate and rhythm. ABDOMEN: Soft, nontender. No mass. EXTREMITIES: Show no edema. LABORATORY DATA: Reveal hemoglobin 13.5, white blood cell count 5.8. Chemistries reveal normal electrolytes, normal AST, ALT, alk phos. Serum TSH is low at 0.17. Free T4 is 1.05. CT scan of the abdomen and pelvis show increased feces throughout the left colon and rectum. There is also dilated common bile duct and intrahepatic bile ducts. MEDICATIONS: Currently include Diovan 320 mg once a day, Dulcolax 5 mg p.o. at bedtime, DuoNeb 3 mg inhaled every 4 hours as needed for shortness of breath, Levaquin 500 mg once a day, Lopressor 50 mg b.i.d., polyethylene glycol 17 g t.i.d., Norvasc 10 mg once a day, oxycodone immediate release 10 mg q. 6 hours as needed for pain OxyContin extended release 30 mg q. 12 hours, budesonide 0.5 mg inhale q. 12 hours, Solu-Medrol 20 mg IV q. 12 hours. IMPRESSION: 1. Exacerbation of chronic obstructive pulmonary disease. 2. Unexplained weight loss. 3. Opioid-induced constipation with fecal impaction. 4. Dilated common bile duct and intrahepatic biliary ducts on CT scan with normal liver enzymes, this was an incidental finding. 4. Rule out hyperthyroidism as a cause of her weight loss, given low TSH levels. RECOMMENDATIONS: 1. I will give the patient a dose of citrate of magnesia 10 mg now in an effort to cleanse her colon. 2. We will request a MRCP with gadolinium to rule out a pancreatic lesion given her unexplained weight loss. 3. Recommend Endocrine evaluation given the low TSH to rule out hyperthyroidism. Marcus Llanos MD [facility] # [id number]
--- NOTE | 2017-05-13 16:16 | MRI ---
EXAM: MR Abdomen Without Intravenous Contrast CLINICAL HISTORY: 61 years old, female; Signs and symptoms; Other: Weight loss ? cbd; Additional info: Dilated cbd, weight loss TECHNIQUE: Multiplanar magnetic resonance images of the abdomen without intravenous contrast. COMPARISON: No relevant prior studies available. FINDINGS: Lower thorax: Tiny pericardial effusion. Liver: Unremarkable. Gallbladder and bile ducts: No filling defects are identified to suggest gallstones. The common bile duct measures 7 to 10 mm. No common duct stone is identified. Pancreas: Unremarkable. No ductal dilation. Spleen: Unremarkable. No splenomegaly. Adrenals: Normal adrenal glands. Kidneys and ureters: Bilateral subcentimeter renal cysts. No hydronephrosis. Stomach and bowel: Large amount of stool in the colon. Correlation with patient's clinical history of constipation is recommended. Intraperitoneal space: Unremarkable. No significant fluid collection. Soft tissues: Unremarkable. Vasculature: There is flow related artifact within the aorta. There is distal abdominal aortic aneurysm with mural thrombus measuring 3.2 cm. No para-aortic fluid collections are identified. No aortic aneurysm rupture. Lymph nodes: Unremarkable. No enlarged lymph nodes. IMPRESSION: No acute findings. EXAM: MR Abdomen Without Intravenous Contrast, MRCP Protocol CLINICAL HISTORY: 61 years old, female; Signs and symptoms; Other: Weight loss ? cbd; Additional info: Dilated cbd, weight loss TECHNIQUE: Multiplanar magnetic resonance images of the abdomen without intravenous contrast using MRCP protocol. MIP reconstructed images were created and reviewed. COMPARISON: No relevant prior studies available. FINDINGS: Bile ducts: The common bile duct measures 7-10 mm. Mildly dilated duct for patient's age. No common duct stone is identified. There is normal distal tapering of the common bile duct. No common duct stones. Gallbladder: No gallstones. Liver: Unremarkable. Pancreas: Unremarkable. No ductal dilation. Spleen: Unremarkable. No splenomegaly. Adrenals: Unremarkable. No mass. Kidneys and ureters: Unremarkable. No hydronephrosis. Stomach and bowel: Unremarkable. No obstruction. IMPRESSION: 1. The common bile duct measures 7-10 mm. Mildly dilated duct for patient's age. No common duct stone is identified. There is normal distal tapering of the common bile duct.
[2017-05-13] MEDS: oxyCODONE 5 mg Immediate Release Tab PO PRN (17:19)
[2017-05-13] MEDS: Promethazine/Cod 6.25mg-10mg/5ml Syr UD PO SCH (18:22)
[2017-05-13] MEDS: Bisacodyl 5mg EC Tab PO SCH (22:30)
--- NOTE | 2017-05-13 23:34 | PN ---
DATE: SUBJECTIVE: The patient is 61 years old black female who came to emergency room because of increasing shortness of breath, still complaining of cough. Chest congestion has improved. PHYSICAL EXAMINATION: VITAL SIGNS: She is afebrile. Pulse 89, respirations 18, blood pressure 101/56. LUNGS: Bilateral few occasional expiratory rhonchi. HEART: S1 and S2. Regular. ABDOMEN: Soft, nontender. No rebound. No guarding. NEUROLOGIC: The patient is awake, alert, oriented; able to communicate. LABORATORY DATA: There are no new labs available. However, flu test is negative. She had CT scan of the abdomen and pelvis done that shows 2 to 3 cm. She had MRCP done, mildly dilated common bile duct. No stone identified. ASSESSMENT: 1. Chronic obstructive pulmonary disease exacerbation. 2. Asthmatic bronchitis. 3. History of hypertension. 4. Chronic back pain. 5. History of chronic obstructive pulmonary disease. PLAN: Currently, the patient is on nebulizer treatment. She is on p.o. Levaquin, and she is on prednisone we will reevaluate the patient in a.m. Jesus Cervantes MD
[2017-05-14] MEDS: Promethazine/Cod 6.25mg-10mg/5ml Syr UD PO SCH ×5 (06:37→23:48)
[2017-05-14] MEDS: Albuterol-Ipratrop 3 mg / 0.5 (3 ml) UD IH PRN (07:41)
[2017-05-14] MEDS: Budesonide 0.5 mg/2 ml Inhal Susp UD IH SCH ×2 (07:42→22:00)
[2017-05-14 08:05] LABS: GRAN # 10.47 (1.4-6.5); GRAN % 89.1 % (50.0-68.0); HEMOGLOBIN 12.4 g/dL (12.0-16.0); LYMPH # 0.7 (1.2-3.4); MEAN CELL VOLUME 88.3 fl (80.0-105.0); MEAN CORPUSCULAR HEMOGLOBIN 27.9 pg (25.0-35.0); MEAN CORPUSCULAR HGB CONC 31.6 g/dl (31.0-37.0); MEAN PLATELET VOLUME 9.7 fl (7.0-11.0); MONO # 0.6 (0.1-0.6); MONO % 4.9 % (1.0-6.0); RBC 4.45 10^6/uL (3.5-6.1); RED CELL DISTRIBUTION WIDTH 13.1 % (11.5-14.5); WHITE BLOOD COUNT 11.8 10^3/ul (4.5-11.0)
--- NOTE | 2017-05-14 08:15 | PN ---
DATE: 05/14/2017 PULMONARY NOTE SUBJECTIVE: The patient appears very comfortable this morning. She is not short of breath at rest. PHYSICAL EXAMINATION: VITAL SIGNS: Last temperature recorded is 98.8, pulse this morning 88, respiratory rate 18, last blood pressure recorded 129/98. Oxygen saturation on room air is 98%. HEENT: Normocephalic, atraumatic. NECK: No JVD. CARDIOVASCULAR: Systolic ejection murmur at the lower left sternal border. No S3 gallop. LUNGS: Very minimal/much less rhonchi. No wheezing. EXTREMITIES: No clubbing, cyanosis or edema. Calves are nontender to palpation. GI: Abdomen is soft, nontender and nondistended. Bowel sounds are positive. SKIN: No acute rash. NEUROLOGIC: Exam limited at the present time. IMPRESSION: 1. Acute bronchitis. 2. Chronic obstructive pulmonary disease. 3. Asthma. 4. Hypertension. PLAN: The patient appears very comfortable this morning. She is not short of breath at rest. She has much less cough. She does state that her breathing is much better overall. On physical exam, her bronchospasm continues to resolve. In addition, the alveolar-arterial gradient also continues to resolve. Oxygen saturation on room air is now 98%. I will continue the current nebulizer treatments and change to oral steroids this morning. The patient also remains on oral antibiotic therapy. There are no temperatures noted. There is no leukocytosis. Pulmonary status of the patient is significantly improved overall. I will discuss the above with the attending physician. Mono Bronson MD [facility]
[2017-05-14 08:50] LABS: ALB/GLOB RATIO 1.3 (1.1-1.8); ALBUMIN 3.8 g/dL (3.0-4.8); ALT/SGPT 21 U/L (7-56); AST/SGOT 26 U/L (14-36); BLOOD UREA NITROGEN 17 mg/dL (7-21); GFR AFRICAN-AMERICAN > 60; GFR NON-AFRICAN AMERICAN 56
[2017-05-14] MEDS: levoFLOXacin 500 MG TAB PO SCH (10:02)
[2017-05-14] MEDS: POLYETHYLENE GLYCOL 3350 17 GM/Dose PACKET PO SCH ×3 (10:02→18:06)
[2017-05-14] MEDS: oxyCODONE 10 mg ER Tab (oxyCONTIN) PO SCH ×2 (10:03→22:12)
[2017-05-14] MEDS ORDERED: Peg-Electrolyte Oral Soln 4L (Golytely) PO ONE (11:06)
[2017-05-14] MEDS: Albuterol-Ipratrop 3 mg / 0.5 (3 ml) UD IH SCH ×3 (13:29→22:00)
[2017-05-14] MEDS: Bisacodyl 5mg EC Tab PO SCH (22:11)
--- NOTE | 2017-05-14 22:38 | PN ---
DATE: SUBJECTIVE: The patient is 61-year-old, seen and examined, lying in bed, seems to be comfortable. Still has cough and congestion, but better than before. PHYSICAL EXAMINATION: VITAL SIGNS: She is afebrile, pulse 86, respirations 20, blood pressure 118/72. LUNGS: Bilateral few expiratory rhonchi. HEART: S1 and S2 audible. ABDOMEN: Soft, nontender. No rebound. No guarding. NEUROLOGIC: The patient is awake, alert, oriented, communicative, ambulatory. EXTREMITIES: Bilateral leg no edema. No ulcers. LABORATORY DATA: WBC 11.8, hemoglobin 12, hematocrit 39, and platelets of 228. Chemistry; sodium 138, potassium 4.6, chloride 100, CO2 28, BUN 17, and creatinine 1.0. Blood sugar 123. Urinalysis is unremarkable. ASSESSMENT: 1. Chronic obstructive pulmonary disease exacerbation. 2. Constipation. 3. History of hypertension. 4. Leukocytosis secondary to steroid. 5. Asthmatic bronchitis. 6. Chronic back pain. PLAN: We will continue patient on nebulizer treatment. She is on valsartan. She is on Levaquin and beta ray. We will continue her analgesics. She is on oral steroid, will be tapered down slowly. Discharge plan soon. Jesus Cervantes MD
[2017-05-15] MEDS: Promethazine/Cod 6.25mg-10mg/5ml Syr UD PO SCH ×4 (06:33→23:47)
[2017-05-15] MEDS: Albuterol-Ipratrop 3 mg / 0.5 (3 ml) UD IH SCH ×3 (07:21→20:00)
[2017-05-15] MEDS: Budesonide 0.5 mg/2 ml Inhal Susp UD IH SCH ×2 (07:22→20:00)
--- NOTE | 2017-05-15 07:44 | PN ---
DATE: 05/15/2017 PULMONARY NOTE SUBJECTIVE: The patient appears very comfortable this morning. She is not short of breath at rest. OBJECTIVE: VITALS: Temperature is 98.0, pulse 88, respirations 18, blood pressure 101/69. Oxygen saturation on room air is 97%. HEENT: Normocephalic, atraumatic. No JVD. CARDIOVASCULAR: Systolic ejection murmur at the lower left sternal border. No S3 gallop. LUNGS: Very minimal/much less rhonchi. No wheezing. EXTREMITIES: No clubbing, cyanosis, or edema. Calves are nontender to palpation. GI: Abdomen is soft, nontender, nondistended. Bowel sounds are positive. SKIN: No acute rash. NEUROLOGIC: Limited at the present time. IMPRESSION: 1. Acute bronchitis. 2. Chronic obstructive pulmonary disease. 3. Asthma. 4. Hypertension. PLAN: The patient appears very comfortable this morning. She is not short of breath at rest. She has much less cough. She does state that her breathing is much better overall. On physical exam, her bronchospasm continues to resolve. In addition, the oxygen saturation on room air is now 97%. I will continue with the current nebulizer treatments and oral steroids for now. The patient also remains on antibiotic therapy. There are no temperatures noted. GI evaluation is ongoing. Input by Dr. Llanos is noted. Clinical status of the patient is significantly improved. I will discuss the above with the attending physician. Mono Bronson MD [facility]
--- NOTE | 2017-05-15 09:20 | PN ---
DATE: 05/14/2017 SUBJECTIVE: The patient is lying in bed. She remains constipated despite MiraLax 17 g three times a day, citrate of magnesia, Dulcolax tablets. The patient has been on long-term opiates. MEDICATIONS: Currently, include Diovan 320 mg once a day, Dulcolax 5 mg at bedtime, Levaquin 500 mg daily, Lopressor 50 mg b.i.d., polyethylene glycol 17 g t.i.d., Norvasc 10 mg daily, oxycodone IR 10 mg q. 6 hours p.r.n., oxycodone ER 30 mg q. 12 h., Phenergan with Codeine 5 mg q. 6 h., prednisone 30 mg before breakfast, Pulmicort Respules 0.5 inhale q. 12 h., guaifenesin 100 mg p.o. q. 4 hours as needed. PHYSICAL EXAMINATION: VITAL SIGNS: Reveal temperature of 98, blood pressure 118/72, heart rate of 87. HEENT: Reveal sclerae to be white. Conjunctivae pink. NECK: Supple. CHEST: Reveal lungs to be clear. HEART: Reveals regular rate and rhythm. ABDOMEN: Soft, nontender. EXTREMITIES: Show no edema. LABORATORY DATA: Reveal white blood count 11.8, hemoglobin 12.4. Chemistries reveal blood sugar 123. Influenza serology is negative. MRCP of the abdomen with and without IV contrast shows mildly dilated common bile duct between 7-10 mm with normal tapering distally. No common bile ducts with stones were seen. No mass is seen in the pancreas. IMPRESSION: 1. Unexplained weight loss. 2. Opioid-induced constipation. 3. Anorexia, possibly secondary to long-term opioid use. 4. Acute bronchitis with exacerbation of chronic obstructive pulmonary disease. RECOMMENDATIONS: 1. I will give the patient 2 liters of polyethylene glycol today in an attempt to clean out her colon. Multiple x-ray imaging studies have shown increased stool throughout the colon including CT scan and MRI. 2. Continue treatment of her exacerbation of COPD. 3. Would obtain an Endocrine evaluation for possible hyperthyroidism as her serum TSH level was low. Marcus Llanos MD [facility] # [id number]
[2017-05-15] MEDS: POLYETHYLENE GLYCOL 3350 17 GM/Dose PACKET PO SCH ×3 (09:53→17:18)
[2017-05-15] MEDS: oxyCODONE 10 mg ER Tab (oxyCONTIN) PO SCH ×2 (09:54→21:56)
[2017-05-15] MEDS: levoFLOXacin 500 MG TAB PO SCH (09:54)
--- NOTE | 2017-05-15 13:01 | PN ---
DATE: 05/15/2017 SUBJECTIVE: The patient had small pebbly bowel movements after taking a half gallon of GoLYTELY yesterday. She denies any abdominal pain, nausea, or vomiting. She denies any fevers or chills. She denies any cough or shortness of breath. PHYSICAL EXAMINATION VITAL SIGNS: Reveal temperature of 98, blood pressure 106/70, heart rate 96. HEENT: Reveal sclerae to be white. Conjunctivae pink. NECK: Supple. CHEST: Reveals lungs to be clear. HEART: Reveals regular rate and rhythm. ABDOMEN: Soft, nontender. EXTREMITIES: Show no edema. LABORATORY DATA: Reveal white blood cell count 11.8, hemoglobin 12.4. IMPRESSION: 1. Opioid-induced constipation. 2. Exacerbation of severe chronic obstructive pulmonary disease. 3. Acute bronchitis. 4. Unexplained weight loss and loss of appetite. RECOMMENDATIONS: 1. We will have the patient drink another half gallon of GoLYTELY. 2. Continue MiraLax 17 g t.i.d. and Dulcolax 5 mg at bedtime. Marcus Llanos MD
[2017-05-15] MEDS: oxyCODONE 5 mg Immediate Release Tab PO PRN (17:16)
[2017-05-15 17:51] VITALS: O2SAT 95
[2017-05-15] MEDS: Bisacodyl 5mg EC Tab PO SCH (21:56)
[2017-05-16] MEDS: Promethazine/Cod 6.25mg-10mg/5ml Syr UD PO SCH (05:32)
[2017-05-16] MEDS: Albuterol-Ipratrop 3 mg / 0.5 (3 ml) UD IH SCH (08:19)
[2017-05-16] MEDS: Budesonide 0.5 mg/2 ml Inhal Susp UD IH SCH (08:22)
--- NOTE | 2017-05-16 08:29 | PN ---
DATE: 05/15/2017 HISTORY OF PRESENT ILLNESS: The patient is a 61-year-old female who came into the hospital because of bronchitis and COPD exacerbation. The patient was started on IV antibiotics and given nebulizer treatment. She also was placed on steroids and she had improvement of her symptoms. She is complaining of abdominal discomfort and she had a CAT scan done that showed constipation. She was given laxatives to help move her bowel by Dr. Llanos from Gastroenterology. The patient also was found to have an abnormal dilated biliary tract on CAT scan, so an MRCP done and did not show any obstruction. The patient currently feels well. She is breathing better. She has been cleared by Pulmonary to be discharged home. She has no headaches, no dizziness, no nausea, and no vomiting. PHYSICAL EXAMINATION: VITAL SIGNS: Temperature is 98, pulse is 96, blood pressure is 101/69, respirations are 20, and O2 saturation is 97%. GENERAL: The patient is lying in bed, flat, comfortable. HEENT: No oral lesion. Anicteric sclerae. Moist mucosa. NECK: No JVD, adenopathy, or thyromegaly. CARDIOVASCULAR: S1 and S2, regular. No murmurs, rubs, or gallops. LUNGS: Clear to auscultation bilaterally. No wheeze, rales, or rhonchi. ABDOMEN: Bowel sounds are positive, soft, nontender and nondistended. EXTREMITIES: No cyanosis, clubbing or edema. LABORATORY DATA: Labs have been reviewed. White count of 11.8. Chemistry shows creatinine of 1.0 and TSH 0.17. ASSESSMENT: 1. Acute chronic obstructive pulmonary disease. 2. Constipation. 3. Hypertension. 4. Bronchitis. 5. Chronic back pain. 6. A 3 cm aortic aneurysm with a mural thrombus. PLAN: The patient is currently comfortable. She states she has not had a good bowel movement. She is on multiple laxatives. She is receiving Diovan for her hypertension. She is on Levaquin for antibiotic. She is on metoprolol. She is going to continue with her pain medications. She is on oxycodone and OxyContin. She is on cough medications. The patient has a CAT scan that was done that showed 3 cm aortic aneurysm . We will get evaluation by Dr. Shawn Mcnally. CONDITION: Stable. ACTIVITIES: Increase as tolerated. FOLLOWUP: Follow up with Dr. Schneider in 1 to 2 weeks. Andrew Osuna MD
[2017-05-16 08:52] VITALS: BP 112/60; PULSE 83; RESP 20; TEMP 98.1
[2017-05-16] MEDS ORDERED: Nystatin 100,000 Units/ml Oral Susp 5 ml UD PO SCH (10:00)
[2017-05-16] MEDS: levoFLOXacin 500 MG TAB PO SCH (10:14)
[2017-05-16] MEDS: oxyCODONE 10 mg ER Tab (oxyCONTIN) PO SCH (10:17)
--- NOTE | 2017-05-16 12:27 | PN ---
DATE: 05/16/2017 PULMONARY NOTE SUBJECTIVE: The patient appears very comfortable this morning. She is not short of breath at rest. PHYSICAL EXAMINATION: VITAL SIGNS: Last temperature recorded is 98.0, pulse this morning is approximately 80, respirations 18, blood pressure 103/65. Oxygen saturation on room air is 95%. HEENT: Normocephalic, atraumatic. No JVD. CARDIOVASCULAR: Systolic ejection murmur at the lower left sternal border. No S3 gallop. LUNGS: Clear bilaterally. EXTREMITIES: No clubbing, cyanosis or edema. Calves are nontender to palpation. GI: Abdomen is soft, nontender and nondistended. Bowel sounds are positive. SKIN: No acute rash. NEUROLOGIC: Limited at the present time. IMPRESSION: 1. Acute bronchitis. 2. Chronic obstructive pulmonary disease. 3. Asthma. 4. Hypertension. PLAN: The patient appears very comfortable this morning. She is not short of breath at rest. She does state to feeling much, much better overall. On physical exam, her lungs are now clear. Oxygen saturation on room air is 95-97%. I will continue with the current nebulizer treatments and oral steroids for now. The patient remains on antibiotic therapy. There are no temperatures noted. GI evaluation is ongoing. Input by Dr. Llanos is noted. Pulmonary status of the patient is significantly improved overall. I will discuss the above with the attending physician. Mono Bronson MD [facility]
--- NOTE | 2017-05-17 05:29 | DS ---
HISTORY OF PRESENT ILLNESS: The patient has no complaints of any chest pain, no shortness of breath, no headaches. She was initially admitted to the hospital because of COPD exacerbation. She has improvement of her symptoms. The patient is currently comfortable. She is having constipation. She was given laxative and that has improved as well. The patient was found to have a 3 cm aortic aneurysm with a mural thrombus. No anticoagulation is required. I spoke with Dr. Shawn Mcnally who had consulted and reviewed the films. I do not see a note that was dictated by him. He did tell me that the patient's CAT scan showed a 3.5 cm AAA, there is no intervention that is needed, just to quit smoking, control the blood pressure. She is going to need follow up for the aneurysm yearly. I did advise her about that and she does understand. PHYSICAL EXAMINATION: VITAL SIGNS: Temperature is 98.1, pulse is 83, blood pressure is 112/60, respirations 20, and O2 saturation of 95%. GENERAL: The patient is lying in bed, flat, comfortable. HEENT: No oral lesion. Anicteric sclerae. Moist mucosa. NECK: No JVD, adenopathy, or thyromegaly. CARDIOVASCULAR: S1 and S2, regular. No murmurs, rubs, or gallops. LUNGS: Clear to auscultation bilaterally. No wheeze, rales, or rhonchi. ABDOMEN: Bowel sounds are positive, soft, nontender and nondistended. EXTREMITIES: No cyanosis, clubbing or edema. ASSESSMENT: 1. Acute chronic obstructive pulmonary disease, improved. 2. Constipation, improved. 3. Hypertension. 4. Bronchitis. 5. Chronic back pain. 6. 3.5 cm aortic aneurysm with mural thrombi, no anticoagulation. PLAN: The patient is going to follow up with primary care doctor. She is aware that she needs to get a repeat evaluation of her AAA in about a year. She did understand and she was able to repeat my suggestions. She is going to be on prednisone, I will taper this slowly. She does have significant COPD. She is currently comfortable. She is going to follow up with her primary care doctor. CONDITION: Stable. ACTIVITY: Increase as tolerated. Discharged home to follow up with Dr. Schneider in 1 to 2 weeks. Andrew Osuna MD
== END 2017-05-16 12:37 | disposition home or self-care (01) | DRG 192 ==
LOC: ED 09:44 → ERH 13:26 → 3RNO 21:21
PROVIDERS: ADMIT Internal Medicine Nephrology; ATTEND Internal Medicine Nephrology
DX: J44.1 Chronic obstructive pulmonary disease with (acute) exacerbation (principal); J20.9 Acute bronchitis, unspecified; J44.0 Chronic obstructive pulmonary disease with (acute) lower respiratory infection; R06.03 Acute respiratory distress; I71.4 Abdominal aortic aneurysm, without rupture; I51.3 Intracardiac thrombosis, not elsewhere classified; K83.8 Other specified diseases of biliary tract; G89.29 Other chronic pain; I10 Essential (primary) hypertension; K56.41 Fecal impaction; M54.9 Dorsalgia, unspecified; R26.9 Unspecified abnormalities of gait and mobility; K59.03 Drug induced constipation; T40.2X5A Adverse effect of other opioids, initial encounter; K29.70 Gastritis, unspecified, without bleeding; F17.210 Nicotine dependence, cigarettes, uncomplicated; R63.4 Abnormal weight loss; R63.0 Anorexia; M51.26 Other intervertebral disc displacement, lumbar region; G43.909 Migraine, unspecified, not intractable, without status migrainosus; F41.9 Anxiety disorder, unspecified; Z86.010 Personal history of colon polyps

== ENCOUNTER 2017-05-22 10:50 | Inpatient (IN) | payer OTHER ==
[2017-05-22 10:53] VITALS: BMI 18.6
[2017-05-22] MEDS ORDERED: Albuterol-Ipratrop 3 mg / 0.5 (3 ml) UD IH STA (11:53)
--- NOTE | 2017-05-22 11:58 | ED PDOC ---
Arrival/HPI - General Chief Complaint: Respiratory Distress Time Seen by Provider: 05/22/17 11:25 Historian: Patient - History of Present Illness Narrative History of Present Illness (Text): 05/22/17 11:47 Katherine Veliz is a 61 year old female who presents to the emergency department complaining of shortness of breath with associated wheezing and phlegm for about 1 week. Patient states that she was discharged from the hospital last week and still has the same symptoms. Patient confirms that she was prescribed Prednisone 10 mg and has been taking it regularly. Patient endorses that she is a smoker, her last cigarette was three weeks ago. No other complaints offered at this time. PMD: Dr. Schneider Infection Control Rn: Dr. Campuzano Time/Duration: 1 week Symptom Onset: Gradual Symptom Course: Unchanged Severity Level: Mild Activities at Onset: Light Context: Home Associated Symptoms (Text): 05/22/17 14:41 Discharged one week ago, but still has the same symptoms of productive cough shortness of breath and wheezing. Was seen by the wood grainer in the office today and directed to the emergency department for admission. Past Medical History - Provider Review Nursing Documentation Reviewed: Yes - Past History Past History: No Previous - Infectious Disease Hx of Infectious Diseases: None - Tetanus Immunization Tetanus Immunization: Unknown - Cardiac Hx Cardiac Disorders: Yes Hx Hypertension: Yes - Pulmonary Hx Chronic Obstructive Pulmonary Disease (COPD): Yes - Neurological Hx Neurological Disorder: Yes Hx Dizziness: Yes Hx Migraine: Yes - HEENT Hx HEENT Disorder: No - Renal Hx Renal Disorder: No - Endocrine/Metabolic Hx Endocrine Disorders: No - Hematological/Oncological Hx Blood Disorders: No - Integumentary Hx Dermatological Disorder: No - Musculoskeletal/Rheumatological Hx Musculoskeletal Disorders: Yes Hx Back Pain: Yes Hx Falls: Yes (legs give out) Hx Herniated Disk: Yes - Gastrointestinal Hx Gastrointestinal Disorders: Yes Hx Diverticulitis: Yes - Genitourinary/Gynecological Hx Genitourinary Disorders: No - Psychiatric Hx Psychophysiologic Disorder: Yes Hx Anxiety: Yes Hx Substance Use: Yes - Past Surgical History Past Surgical History: No Previous - Surgical History Other/Comment: sX ON ESOPHAGUS & STOMACH - Anesthesia Hx Anesthesia: Yes Hx Anesthesia Reactions: No Hx Malignant Hyperthermia: No - Suicidal Assessment Feels Threatened In Home Enviroment: No Family/Social History - Physician Review Nursing Documentation Reviewed: Yes Family/Social History: No Known Family HX Smoking Status: Light Smoker < 10 Cigarettes Daily Hx Alcohol Use: Yes Hx Substance Use: Yes Hx Substance Use Treatment: No Allergies/Home Meds Allergies/Adverse Reactions: Allergies No Known Allergies Allergy (Verified 04/19/17 16:27) Home Medications: Home Meds Medication Instructions Recorded Confirmed Metoprolol Tartrate 50 mg PO BID 08/25/13 05/22/17 Valsartan [Diovan] 320 mg PO DAILY 02/02/16 05/22/17 amLODIPine [Norvasc] 10 mg PO DAILY 02/02/16 05/22/17 oxyCODONE [oxyCONTIN Extended 30 mg PO Q12 02/02/16 05/22/17 Release Tab] Lorazepam [Ativan] 0.5 mg PO DAILY PRN 05/11/17 05/22/17 Umeclidinium Brm/Vilanterol Tr 1 each IH DAILY 05/11/17 05/22/17 [Anoro Ellipta 62.5-25 Mcg INH] oxyCODONE [oxyCODONE Immediate 10 mg PO Q6 PRN 05/11/17 05/22/17 Release Tab] Beclomethasone Dipropionate [Qvar 8.7 gm IH BID 05/12/17 05/22/17 80 mcg] Review of Systems - Physician Review All systems were reviewed & negative as marked: Yes - Review of Systems Constitutional: absent: Fevers, Night Sweats Eyes: absent: Vision Changes ENT: absent: Hearing Changes Respiratory: SOB, Sputum, Wheezing Cardiovascular: absent: Chest Pain Gastrointestinal: absent: Abdominal Pain Genitourinary Female: absent: Dysuria, Frequency Musculoskeletal: absent: Arthralgias, Back Pain Skin: absent: Rash, Pruritis Neurological: absent: Headache, Dizziness Endocrine: absent: Diaphoresis Hemo/Lymphatic: absent: Adenopathy Psychiatric: absent: Anxiety Physical Exam Vital Signs Reviewed: Yes Vital Signs Temp Pulse Resp BP Pulse Ox 05/22/17 11:52 12 05/22/17 10:50 97.9 F 110 H 18 131/100 H 94 L Temperature: Afebrile Blood Pressure: Hypertensive Pulse: Tachycardic Respiratory Rate: Normal Appearance: Positive for: Well-Appearing, Non-Toxic, Uncomfortable Pain Distress: None Mental Status: Positive for: Alert and Oriented X 3 - Systems Exam Head: Present: Atraumatic, Normocephalic Pupils: Present: PERRL Extroacular Muscles: Present: EOMI Conjunctiva: Present: Normal Ears: Present: NORMAL TM, Normal Canal. No: Erythema Mouth: Present: Moist Mucous Membranes Pharnyx: No: ERYTHEMA, EXUDATE, TONSILS ENLARGED Neck: Present: Normal Range of Motion Respiratory/Chest: Present: Respiratory Distress, Accessory Muscle Use (mild), Wheezes (mild), Decreased Breath Sounds, Retracting (mild). No: Rales, Rhonchi , Tachypneic, Tender to Palpation Cardiovascular: Present: Regular Rate and Rhythm, Normal S1, S2. No: Murmurs Abdomen: Present: Normal Bowel Sounds. No: Tenderness, Distention, Peritoneal Signs Upper Extremity: Present: Normal Inspection. No: Cyanosis, Edema Lower Extremity: Present: Normal Inspection. No: Edema Neurological: Present: GCS=15, CN II-XII Intact, Speech Normal, Motor Func Grossly Intact Skin: Present: Warm, Dry, Normal Color. No: Rashes Psychiatric: Present: Alert, Oriented x 3, Normal Insight, Normal Concentration Medical Decision Making ED Course and Treatment: 05/22/17 12:02 Impression: 61 year old female complaining of shortness of breath with associated wheezing and phlegm for about 1 week. Plan: -- EKG -- Chest X-ray -- ABG -- Labs -- Duoneb and Solu-medrol -- Reassess and disposition Prior Visits: Notes and results from previous visits were reviewed. Patient was last seen in the emergency department on 05/11/17 for 3-4 days onset of progressively worsening sob/wheezing, and frequent use/need for nebulizer use at home. Patient was admitted to telemetry for further evaluation. Progress Notes: 05/22/17 14:27 Chest X-ray: Creator : Jhoan Curry MD FINDINGS: LUNGS:No active pulmonary disease. PLEURA:Blunting of the left costophrenic angle CARDIOVASCULAR:Normal. OSSEOUS STRUCTURES:No significant abnormalities. VISUALIZED UPPER ABDOMEN:Normal. OTHER FINDINGS:None. IMPRESSION: No active disease. 05/22/17 14:46 EKG shows sinus tachycardia rate approximately [address] or T-wave changes 05/22/17 14:47 Discussed withDr Osuna who will place on a regular observation - Lab Interpretations Lab Results: 05/22/17 12:57 05/22/17 14:06 Lab Results 05/22/17 14:06: Sodium 139, Potassium 4.4, Chloride 95 L, Carbon Dioxide 31, Anion Gap 18, BUN 26 H, Creatinine 0.9, Est GFR ( Amer) > 60, Est GFR ( Non-Af Amer) > 60, Random Glucose 146 H, Calcium 10.3, Total Bilirubin 0.8, AST 45 H D, ALT 49, Alkaline Phosphatase 93, Lactate Dehydrogenase 605, Total Creatine Kinase 36, Troponin I < 0.01, NT-Pro-B Natriuret Pep 93.2, Total Protein 8.5 H, Albumin 4.6, Globulin 3.9, Albumin/Globulin Ratio 1.2 05/22/17 12:57: WBC 11.8 H, RBC 6.13 H, Hgb 17.7 H D, Hct 53.0 H, MCV 86.5, MCH 28.9, MCHC 33.4, RDW 13.3, Plt Count 282, MPV 9.9, Gran % 82.9 H, Lymph % (Auto ) 12.0 L, [place] % (Auto) 4.8, Eos % (Auto) 0.0 L, Baso % (Auto) 0.3, Gran # 9.78 H, Lymph # (Auto) 1.4, [place] # (Auto) 0.6, Eos # (Auto) 0.0, Baso # (Auto) 0.03 05/22/17 12:00: pCO2 39, pO2 62.0 L, HCO3 29.7 H, ABG pH 7.49 H, ABG Total CO2 30.9 H, ABG O2 Saturation 96.3, ABG O2 Content 20.3, ABG Base Excess 5.9 H, ABG Hemoglobin 15.7, ABG Carboxyhemoglobin 2.8 H, POC ABG HHb (Measured) 3.5, ABG Methemoglobin 1.4, ABG O2 Capacity 21.1, Hgb O2 Saturation 92.3 L, FiO2 21.0 - RAD Interpretation Radiology Orders: 05/22/17 11:52 CHEST PORTABLE [RAD] Stat Chest 1 view shows no infiltrate effusion or cardiomegaly Locomotive Engineer Diesel: ED Physician - Medication Orders Current Medication Orders: Discontinued Medications Albuterol/Ipratropium (Duoneb 3 Mg/0.5 Mg (3 Ml) Ud) 3 ml IH ONCE STA Stop: 05/22/17 11:54 Methylprednisolone (Solu-Medrol) 125 mg IVP ONCE ONE Stop: 05/22/17 11:54 - Scribe Statement The provider has reviewed the documentation as recorded by the Rubaibpeter Fuentes Provider Scribe Attestation: All medical record entries made by the Scribe were at my direction and personally dictated by me. I have reviewed the chart and agree that the record accurately reflects my personal performance of the history, physical exam, medical decision making, and the department course for this patient. I have also personally directed, reviewed, and agree with the discharge instructions and disposition. Disposition/Present on Arrival - Present on Arrival Any Indicators Present on Arrival: No History of DVT/PE: No History of Uncontrolled Diabetes: No Urinary Catheter: No History of Decub. Ulcer: No History Surgical Site Infection Following: None - Disposition Have Diagnosis and Disposition been Completed?: Yes Diagnosis: Acute exacerbation of chronic obstructive pulmonary disease (COPD), Shortness of breath Disposition: HOSPITALIZED Disposition Time: 14:47 Patient Plan: Observation Patient Problems: Current Active Problems Problem Status Onset Acute exacerbation of chronic obstructive pulmonary disease (COPD) Acute Shortness of breath Acute Condition: GOOD Referrals: Vik Schneider MD [Primary Care Provider] - Follow up with primary Forms: [employer] ([place])
[2017-05-22 12:11] LABS: ARTERIAL BLOOD GAS HCO3 29.7 mmol/L (21-28); ARTERIAL BLOOD GAS HEMOGLOBIN 15.7 g/dL (11.7-17.4); ARTERIAL BLOOD GAS O2 CAPACITY 21.1 mL/dl (16-24); ARTERIAL BLOOD GAS O2 CONTENT 20.3 ML/dl (15-23); ARTERIAL BLOOD GAS O2 SAT 96.3 % (95-98); ARTERIAL BLOOD GAS PCO2 39 mm/Hg (35-45); ARTERIAL BLOOD GAS PH 7.49 (7.35-7.45); ARTERIAL BLOOD GAS TCO2 30.9 mmol.L (22-28)
--- NOTE | 2017-05-22 13:18 | RAD ---
HISTORY: sob COMPARISON: 05/11/2017 FINDINGS: LUNGS: No active pulmonary disease. PLEURA: Blunting of the left costophrenic angle CARDIOVASCULAR: Normal. OSSEOUS STRUCTURES: No significant abnormalities. VISUALIZED UPPER ABDOMEN: Normal. OTHER FINDINGS: None. IMPRESSION: No active disease.
[2017-05-22 13:25] LABS: BASO # 0.03 K/mm3 (0.0-2.0); BASO % 0.3 % (0.0-3.0); GRAN # 9.78 (1.4-6.5); GRAN % 82.9 % (50.0-68.0); HEMOGLOBIN 17.7 g/dL (12.0-16.0); LYMPH # 1.4 (1.2-3.4); MEAN CELL VOLUME 86.5 fl (80.0-105.0); MEAN CORPUSCULAR HEMOGLOBIN 28.9 pg (25.0-35.0); MEAN CORPUSCULAR HGB CONC 33.4 g/dl (31.0-37.0); MEAN PLATELET VOLUME 9.9 fl (7.0-11.0); MONO # 0.6 (0.1-0.6); MONO % 4.8 % (1.0-6.0); RBC 6.13 10^6/uL (3.5-6.1); RED CELL DISTRIBUTION WIDTH 13.3 % (11.5-14.5); WHITE BLOOD COUNT 11.8 10^3/ul (4.5-11.0)
[2017-05-22 14:26] LABS: ALB/GLOB RATIO 1.2 (1.1-1.8); ALBUMIN 4.6 g/dL (3.0-4.8); ALT/SGPT 49 U/L (7-56); AST/SGOT 45 U/L (14-36); BLOOD UREA NITROGEN 26 mg/dL (7-21); CALCIUM 10.3 mg/dL (8.4-10.5); GFR AFRICAN-AMERICAN > 60; GFR NON-AFRICAN AMERICAN > 60
[2017-05-22 14:33] LABS: B-TYPE NATRIURETIC PEPTIDE 93.2 pg/mL (0-450); TROPONIN I < 0.01 ng/mL
--- NOTE | 2017-05-22 17:54 | CARD ---
APPROVED REPORT EKG Measurement Heart [id number] <Conclusion> Sinus tachycardia Otherwise normal ECG
[2017-05-22] MEDS ORDERED: Pneumococcal 23-Valent Vaccine IM ONE (20:59)
[2017-05-22] MEDS ORDERED: Influenza Vaccine 60 mcg/0.5 mL SYR (4YR UP) IM ONE (20:59)
[2017-05-22] MEDS ORDERED: MethylPREDNISolone 40 mg Vial IVP SCH (22:00)
[2017-05-22] MEDS: oxyCODONE 20 mg ER Tab (oxyCONTIN) PO SCH (22:10)
[2017-05-22] MEDS: Albuterol-Ipratrop 3 mg / 0.5 (3 ml) UD IH SCH (23:26)
[2017-05-23] MEDS: Budesonide 0.5 mg/2 ml Inhal Susp UD IH SCH ×2 (08:03→19:57)
[2017-05-23] MEDS: Albuterol-Ipratrop 3 mg / 0.5 (3 ml) UD IH SCH ×2 (08:03→19:57)
[2017-05-23] MEDS: MethylPREDNISolone 40 mg Vial IVP SCH ×2 (09:56→22:13)
[2017-05-23] MEDS: oxyCODONE 20 mg ER Tab (oxyCONTIN) PO SCH ×2 (09:57→22:13)
[2017-05-23] MEDS: oxyCODONE 5 mg Immediate Release Tab PO PRN (16:47)
--- NOTE | 2017-05-23 17:06 | CON ---
DATE: 05/23/2017 PULMONARY CONSULTATION REFERRING PHYSICIAN: Andrew Osuna MD. REASON FOR CONSULTATION: Chronic obstructive pulmonary disease. HISTORY OF PRESENT ILLNESS: The patient is a 61-year-old female, with past medical history significant for chronic obstructive pulmonary disease (probably advanced), positive extensive smoking history - still smokes, asthma, status post recent hospitalization for acute bronchitis, who presents to [facility] with a 3-day history of worsening shortness of breath at rest, dyspnea on exertion, cough, and minimal sputum production. There is no history of chest pain, coughing up of blood, or chest pian - made worse with deep respirations. There is no history of temperatures, chills, or infectious exposure. There is no history of night sweats, weight loss, or appetite change prior to the above events. No history of leg or calf pains. No history of syncope or diaphoresis. No history of recent travel or trauma. REVIEW OF SYSTEMS: No history of nausea, vomiting, or diarrhea. No acute urinary symptoms. No new neurologic or musculoskeletal complaints. Rest of the review of systems negative. ALLERGIES: NO KNOWN ALLERGIES. SOCIAL HISTORY: Positive for extensive tobacco usage - still smokes, no alcohol. FAMILY HISTORY: No inheritable diseases. HOME MEDICATIONS: Include prednisone, oxycodone, Norvasc, Diovan, Anoro Ellipta, metoprolol, Ativan, QVAR, and albuterol HFA. PHYSICAL EXAMINATION: GENERAL: The patient is comfortable at rest. She is not short of breath at rest. VITAL SIGNS: (Last noted in the computer): Temperature is 98.7, pulse 98, respirations 18/20, blood pressure 105/68. Oxygen saturation on nasal cannula is 94%--96%. HEENT: Normocephalic, atraumatic. No JVD. CARDIOVASCULAR: Systolic ejection murmur at the lower left sternal border. No S3 gallop. LUNGS: Decreased breath sounds at the bases. Minimal rhonchi. Minimal wheezing. EXTREMITIES: No clubbing, cyanosis, or edema. Calves are nontender to palpation. GASTROINTESTINAL: Abdomen is soft, nontender, and nondistended. Bowel sounds are positive. SKIN: No acute rash. NEUROLOGIC: Limited at the present time. CURRENT LABORATORY DATA: Chest x-ray was done yesterday and reviewed. There was no active disease noted. CBC: White count 11.8, hemoglobin 17.7, hematocrit 53.0, platelets of 282,000. Arterial blood gas was done on room air. Results are: PH 7.49, pCO2 of 39, pO2 of 62. Complete metabolic profile: Chloride 95. BUN 26, glucose 146. AST 45. Total protein 8.5. Rest of the metabolic profile is within normal limits. Serologies are positive for influenza A. IMPRESSION: 1. Recurrent bronchitis. 2. Advanced chronic obstructive pulmonary disease. 3. Asthma. 4. Hypoxemia. 5. Influenza A positivity. PLAN: The patient presents to [facility] with a 3-day history of worsening pulmonary symptoms. As above, the patient was recently hospitalized for an acute bronchitis. I did review the chest x-ray as above. There is no active disease present. I have also reviewed the laboratory data. Serologies are positive for influenza A. I will start the patient on Tamiflu this morning. On physical exam, there is mild bronchospasm noted. Oxygen saturation on nasal cannula is 94% to 96%. I will continue the current nebulizer treatments and try decreasing the intravenous steroids this morning. I will also add inhaled Pulmicort this morning. The patient is on QVAR at home. The patient does feel better, and is clinically improved this morning. Additional pulmonary intervention will be based on the clinical status of the patient. I will discuss the above with Dr. Osuna. Thank you very much for this pulmonary consultation. Mono Bronson MD [facility]
--- NOTE | 2017-05-23 19:02 | CON ---
DATE: 05/23/2017 INDICATION: Shortness of breath. HISTORY OF PRESENT ILLNESS: This is a 61-year-old woman smoker, readmitted to [facility] with exacerbation of respiratory symptoms including shortness of breath, wheezing, cough, sputum production, found to have positive serology for influenza. She was admitted to . She has improved with treatment, but still complains of shortness of breath with minimal exertion. There was no chest pain, orthopnea, PND, syncope, presyncope, lightheadedness, dizziness, vertigo, palpitations, edema, claudication, fever, chills, rigor, sweats, hemoptysis, abdominal pain, nausea, vomiting, melena. PAST MEDICAL HISTORY: Notable for severe COPD. She claims to have recently stopped smoking during her last admission. She has bronchitis and asthma, hypertension, discogenic disease with chronic pain, peripheral neuropathy, migraine headaches, diverticulosis, colonic polyps, esophageal problems. An echocardiogram in April 2015 revealed normal LV function with mild tricuspid regurgitation. There is no history of rheumatic fever, myocardial infarction, angina, congestive heart failure, diabetes, stroke, TIA or gout. MEDICATIONS: At the time of admission included Anoro, Ativan, Diovan, metoprolol, Norvasc, QVAR, Ventolin, oxycodone and prednisone. ALLERGIES: NO MEDICATION ALLERGIES REPORTED. SOCIAL HISTORY: She lives at home. She is ambulatory. She smoked cigarettes until very recently. She denies significant alcohol intake. FAMILY HISTORY: Noncontributory. REVIEW OF SYSTEMS: A 10-point review of systems otherwise unremarkable except as noted above. PHYSICAL EXAMINATION: GENERAL: She is a thin woman, in no acute distress, sitting on her bed on 5R. VITAL SIGNS: Notable for a pulse of 92. She is afebrile. Blood pressure 105/68, respirations 18-20, O2 saturation 94%-95% on nasal cannula. HEENT: Reveals no neck vein distention, thyromegaly, or carotid bruits. Mucous membranes moist. Conjunctivae pink. NECK: Supple. LUNGS: Lung chappell clear throughout. CARDIOVASCULAR: Examination of the heart revealed normal first and second heart sounds. ABDOMEN: Soft, bowel sounds present. No mass or organomegaly, tenderness, rebound, guarding. CVA tenderness, palpable abdominal aortic aneurysm. EXTREMITIES: Extremity exam reveals no cyanosis, clubbing or edema. NEUROLOGIC: She was awake, alert and oriented. PSYCHIATRIC: Normal as to mood and affect. SKIN: Warm and dry. No rash or cellulitis. LABORATORY DATA AND IMAGING: EKG demonstrates sinus tachycardia at 104 beats per minute, poor R-wave progression, non-specific ST-wave change. There is no change from prior EKG. A chest x-ray revealed no active disease. CBC notable for white count of 11,800, hemoglobin 17.7, hematocrit 53.0, platelet count 282,000. Blood gases are noted. Electrolytes, BUN and creatinine, blood sugar unremarkable. LFTs mildly abnormal. CK 36, troponin less than 0.01, BNP 93.2. Serology positive for influenza. IMPRESSION: Katherine Veliz is a 61-year-old smoker with severe chronic obstructive pulmonary disease admitted with respiratory symptoms in the setting of a recent exacerbation of chronic obstructive pulmonary disease, bronchitis with wheezing. She returned home, but symptoms recurred and she now has serology positive for influenza. I agree with current plans. She is requesting a nicotine patch which would be useful. She has agreed to stop smoking permanently. We will continue her usual cardiac meds including metoprolol, Diovan and Norvasc. She is getting pulmonary treatments, Solu-Medrol, Tamiflu, Pulmicort and respiratory treatments. I will review her old records. I will review her most recent echocardiogram. She should be considered for outpatient nuclear stress testing once respiratory symptoms have improved. I will follow along with you. I will make additional recommendations based on her clinical course. Alvin King MD [facility]
--- NOTE | 2017-05-23 19:29 | HP ---
CHIEF COMPLAINT AND HISTORY OF PRESENT ILLNESS: This is a 61-year-old female, who is coming into the hospital, complaining of shortness of breath and wheezing. She states that she has been having worsening phlegm. She was discharged from the hospital about a week ago. She states that she has been taken her medications. She had gone to see her mussel farmer, Dr. Campuzano, and was advised to come to the ER for further evaluation. In the ER, the patient had a rapid flu done and it was positive. The patient was admitted for influenza treatment due to her viral syndrome. She states that she is feeling a bit better after receiving nebulizer treatments. She has no complaint of any chest pain or shortness of breath. She is feeling weak and fatigued. She has difficulty in ambulating because she gets short of breath. No headaches or dizziness. No nausea. REVIEW OF SYSTEMS: All other review of symptoms are within normal limits, except what is mentioned. ALLERGIES: NO KNOWN DRUG ALLERGIES. HOME MEDICATIONS: She is taking metoprolol, Diovan, Norvasc, Ativan, and oxycodone. PAST MEDICAL HISTORY: 1. Hypertension. 2. COPD. 3. Chronic back pain. 4. Syncope. FAMILY HISTORY: Noncontributory. SOCIAL HISTORY: She smokes less than 10 cigarettes per day. PHYSICAL EXAMINATION: GENERAL: The patient lying in bed, uncomfortable, and in no acute distress. VITAL SIGNS: Temperature is 98.8, pulse of 92, blood pressure is 94/66, respirations 16, O2 saturation is 97%, height is 5 feet 6 inches, weight is 115 pounds, and BMI is 18.6. HEENT: Atraumatic and normocephalic. Anicteric sclerae. Moist mucosa. [place] conjunctivae. No oral lesions. NECK: No JVD, anterior and posterior adenopathy, thyromegaly, or bruits. CARDIOVASCULAR: S1 and S2 regular. No murmur, rubs, or gallop. LUNGS: Good bilateral air entry. She has mild wheezing bilaterally. No rales or rhonchi. ABDOMEN: Bowel sounds are positive. Soft, nontender and nondistended. No hepatosplenomegaly. No rebound and no guarding. EXTREMITIES: No cyanosis, clubbing, or edema. NEUROLOGIC: No facial asymmetry. Tongue is midline. No uvula deviation. Power is 5/5 upper extremity and lower extremity. Sensation intact in upper extremity and lower extremity. PSYCHIATRIC: She is awake, alert, and oriented x3. No anxiety or depression. She has normal affect. GENITOURINARY: No CVA tenderness. VASCULAR: 2+ pulses in the carotid pulses and pedal pulses. SKIN: No erythema or nodules. SPINE: Shows normal curvature. LABORATORY DATA: She has a white count of 11.8, hemoglobin 17.7, and platelet count is 282. Chemistry shows sodium 139, potassium is 4.4, creatinine is 0.9. CK is 36, and troponin is 0.01. She has an ABG done that shows a pH of 7.49 with a pCO2 of 29 and PaO2 of 62, and 21% FiO2. Chest x-ray done, she has no active disease. EKG shows a heart rate of 104, QTc is 447, she is slightly tachycardic. ASSESSMENT: 1. Viral syndrome secondary to influenza. 2. Hypoxia. 3. Chronic obstructive pulmonary disease, acute. 4. Hypertension. 5. Chronic back pain. 6. Smoking. PLAN: The patient is going to be admitted to the hospital. She has mild wheezing. She has positive flu. The patient is going to be started on Tamiflu. I will get Dr. Bronson to evaluate from Pulmonary. The patient is also going to be seen by Dr. King from Cardiology. She will get nebulizer treatments. The patient is going to be on metoprolol. She is on pain medications of oxycodone and OxyContin. She was given the pneumonia shot. The patient is going to be placed on Solu-Medrol. She is on a heart-healthy diet. We will get Physical Therapy to evaluate the patient. Currently, the patient is feeling comfortable. We will continue to follow closely. She is on contact isolation. I discontinued the patient's blood pressure medications because of low blood pressure, but she is asymptomatic. Andrew Osuna MD
[2017-05-24 06:36] LABS: BASO # 0.01 K/mm3 (0.0-2.0); BASO % 0.1 % (0.0-3.0); GRAN # 13.21 (1.4-6.5); HEMOGLOBIN 13.3 g/dL (12.0-16.0); LYMPH # 1.2 (1.2-3.4); LYMPH % 7.9 % (22.0-35.0); MEAN CELL VOLUME 87.5 fl (80.0-105.0); MEAN CORPUSCULAR HEMOGLOBIN 27.7 pg (25.0-35.0); MEAN CORPUSCULAR HGB CONC 31.7 g/dl (31.0-37.0); MEAN PLATELET VOLUME 9.5 fl (7.0-11.0); MONO # 0.9 (0.1-0.6); RBC 4.8 10^6/uL (3.5-6.1); RED CELL DISTRIBUTION WIDTH 13.4 % (11.5-14.5); WHITE BLOOD COUNT 15.4 10^3/ul (4.5-11.0)
[2017-05-24] MEDS: Albuterol-Ipratrop 3 mg / 0.5 (3 ml) UD IH SCH ×4 (08:06→20:05)
[2017-05-24] MEDS: Budesonide 0.5 mg/2 ml Inhal Susp UD IH SCH ×3 (08:06→20:06)
--- NOTE | 2017-05-24 09:03 | PN ---
DATE: 05/24/2017 PULMONARY NOTE SUBJECTIVE: The patient appears comfortable at rest. She is not short of breath. PHYSICAL EXAMINATION VITAL SIGNS: Last temperature recorded is 98.7, pulse this morning 88, respirations 18, blood pressure 128/95. Oxygen saturation on nasal cannula is 95%-97%. HEENT: Normocephalic, atraumatic. No JVD. CARDIOVASCULAR: Systolic ejection murmur at the lower left sternal border. No S3 gallop. LUNGS: Improved breath sounds at the bases. Less rhonchi. Less wheezing. EXTREMITIES: No clubbing, cyanosis or edema. Calves are nontender to palpation. GI: Abdomen is soft, nontender and nondistended. Bowel sounds are positive. SKIN: No acute rash. NEUROLOGIC: Limited at the present time. IMPRESSION: 1. Recurrent bronchitis. 2. Advanced chronic obstructive pulmonary disease. 3. Asthma. 4. Hypoxemia. 5. Influenza A positivity. PLAN: The patient appears comfortable this morning. She is not short of breath at rest. She does state to feeling much better overall. On physical exam, her bronchospasm is less. In addition, the alveolar-arterial gradient is also less. I will continue the current nebulizer treatments and low-dose intravenous steroids (decreased yesterday) for now. The patient also remains on Tamiflu. Clinical status of the patient is definitely improved. The patient is advised to be out of bed as much as possible. I will discuss the above with Dr. Osuna. Mono Bronson MD MTDLesli
--- NOTE | 2017-05-24 09:37 | CT ---
PROCEDURE: CT Chest without contrast HISTORY: SOB COMPARISON: None. TECHNIQUE: Contiguous axial images were obtained through the chest without intravenous contrast enhancement. Sagittal and coronal reconstructions were performed. Radiation dose (DLP): 166 mGy-cm. This CT exam was performed using one or more of the following dose reduction techniques: Automated exposure control, adjustment of the mA and/or kV according to patient size, and/or use of iterative reconstruction technique. 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 The lungs are clear. COPD MEDIASTINUM: Unremarkable thoracic aorta. No aneurysm. Normal sized heart. Main pulmonary artery unremarkable. No vascular congestion. No lymphadenopathy. PLEURA: No pleural fluid. No pneumothorax. BONES: No fracture. No destructive lesion. UPPER ABDOMEN: Grossly unremarkable. OTHER FINDINGS: None. IMPRESSION: No acute findings
[2017-05-24] MEDS: oxyCODONE 20 mg ER Tab (oxyCONTIN) PO SCH ×2 (10:10→21:33)
[2017-05-24] MEDS: MethylPREDNISolone 40 mg Vial IVP SCH ×2 (10:12→21:31)
--- NOTE | 2017-05-24 11:15 | PN ---
DATE: SUBJECTIVE: Patient has no complaints of any chest pain or shortness of breath. She states that her breathing is comfortable. PHYSICAL EXAMINATION: VITAL SIGNS: Temperature is 98.7, pulse of 120, blood pressure is 120/95, respirations 19. GENERAL: The patient is lying in bed, flat, comfortable. HEENT: No oral lesion. Anicteric sclerae. Moist mucosa. NECK: No JVD, adenopathy, or thyromegaly. CARDIOVASCULAR: S1 and S2, regular. No murmurs, rubs, or gallops. LUNGS: Clear to auscultation bilaterally. No wheeze, rales, or rhonchi. ABDOMEN: Bowel sounds are positive, soft, nontender and nondistended. EXTREMITIES: no cyanosis, clubbing or edema. ASSESSMENT: 1. Viral syndrome secondary to influenza infection. 2. Hypoxia, improved. 3. Chronic obstructive pulmonary disease, acute. 4. Hypertension. 5. Chronic back pain. 6. Smoking. PLAN: Patient is currently on Tamiflu. She is being followed by Cardiology and Pulmonary. Patient is on nicotine patch for smoking. She is going to continue with [facility] for hypertension. She is on oxycodone for pain. She is receiving OxyContin for pain as well. She is on steroids, Solu-Medrol. She has a CT of the chest that has been ordered. She is on a heart-healthy diet. Continue current management. Andrew Osuna MD
[2017-05-24] MEDS: POLYETHYLENE GLYCOL 3350 17 GM/Dose PACKET PO SCH ×3 (13:08→19:27)
[2017-05-25] MEDS: Albuterol-Ipratrop 3 mg / 0.5 (3 ml) UD IH SCH ×3 (08:18→19:48)
[2017-05-25] MEDS: Budesonide 0.5 mg/2 ml Inhal Susp UD IH SCH ×2 (08:18→19:48)
--- NOTE | 2017-05-25 08:33 | CP.PCM.PN ---
Subjective - Date & Time of Evaluation Date of Evaluation: 05/25/17 Time of Evaluation: 07:00 - Subjective Subjective: Stable on 3R. She feels better but still SHELBY and fatigue with min. activity V/S noted. PE: Lungs: clear Cor: S1S2 Abd.: soft Ext.: no edema Neuro.: alert CT Chest noted Objective - Vital Signs/Intake and Output Vital Signs (last 24 hours): Temp Pulse Resp BP Pulse Ox 98.0 F 94 H 19 115/89 95 05/24/17 16:00 05/24/17 18:01 05/24/17 16:00 05/24/17 16:00 05/24/17 16:00 Intake and Output: 05/25/17 05/25/17 06:59 18:59 Intake Total 120 Balance 120 - Medications Medications: Current Medications Albuterol/Ipratropium (Duoneb 3 Mg/0.5 Mg (3 Ml) Ud) 3 ml IH TIDRESP [facility] Last Admin: 05/25/17 08:18 Dose: 3 ml Amlodipine Besylate (Norvasc) 5 mg PO DAILY [facility] Last Admin: 05/24/17 10:10 Dose: 5 mg Budesonide (Pulmicort Respules) 0.5 mg IH [id number] [facility] Last Admin: 05/25/17 08:18 Dose: 0.5 mg Lorazepam (Ativan) 0.5 mg PO DAILY PRN; Protocol PRN Reason: Anxiety Methylprednisolone (Solu-Medrol) 20 mg IVP Q12 [facility] Metoprolol Tartrate (Lopressor) 50 mg PO BRKDIN [facility] Last Admin: 05/24/17 18:01 Dose: 50 mg Nicotine (Nicoderm Cq) 1 patch TD DAILY [facility] Last Admin: 05/24/17 10:10 Dose: 1 patch Oseltamivir Phosphate (Tamiflu Cap) 75 mg PO BID [facility] PRN Reason: Protocol Stop: 05/28/17 06:40 Last Admin: 05/24/17 18:02 Dose: 75 mg Oxycodone HCl (Oxycodone Immediate Release Tab) 10 mg PO Q6 PRN PRN Reason: Pain, severe (8-10) Last Admin: 05/23/17 16:47 Dose: 10 mg Oxycodone HCl (Oxycontin Extended Release Tab) 30 mg PO Q12 [facility] Last Admin: 05/24/17 21:33 Dose: 30 mg Polyethylene Glycol (Miralax) 17 gm PO BID [facility] Last Admin: 05/24/17 19:27 Dose: Not Given - Labs Labs: 05/24/17 06:10 Assessment and Plan - Assessment and Plan (Free Text) Assessment: SOB/Cough/Wheezing Severe COPD with acute bronchitis Influenza Smoker/Quitting HBP PN Migraine KAY Discogenic Disease Diverticulosis Colonic Polyps Plan: As per Drs. Irizarry and Audie Tamiflu Resp. Tx. OOB as ezra Daniel. Patch Out-pt. elective nuclear stress testing when stabilized.
--- NOTE | 2017-05-25 09:12 | PN ---
DATE: 05/25/2017 PULMONARY NOTE SUBJECTIVE: The patient appears very comfortable this morning. She is not short of breath at rest. PHYSICAL EXAMINATION VITAL SIGNS: (Last noted in the computer): Temperature is 98.0, pulse 94, respirations 19, blood pressure 115/89. Oxygen saturation on nasal cannula is 95%-96%. HEENT: Normocephalic, atraumatic. No JVD. CARDIOVASCULAR: Systolic ejection murmur at the lower left sternal border. No S3 gallop. LUNGS: Minimal/less rhonchi. No wheezing this morning. EXTREMITIES: No clubbing, cyanosis or edema. Calves are nontender to palpation. GI: Abdomen is soft, nontender and nondistended. Bowel sounds are positive. SKIN: No acute rash. NEUROLOGIC: Limited at the present time. PERTINENT LABORATORY DATA: CAT scan of the chest was done yesterday and reviewed. 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 Otherwise, there is no mass, nodule or consolidation noted. There is no lymphadenopathy. There are findings consistent with chronic obstructive pulmonary disease. IMPRESSION: 1. Recurrent bronchitis. 2. Advanced chronic obstructive pulmonary disease. 3. Asthma. 4. Hypoxemia. 5. Influenza A positivity. PLAN: The patient appears very comfortable this morning. She is not short of breath at rest. She does state to feeling much better overall. On physical exam, her bronchospasm continues to slowly resolve. I will continue the current nebulizer treatments and decrease the intravenous steroids this morning. I will also continue with the Tamiflu for now. There are no temperatures noted. There is a leukocytosis on yesterday's labs - most likely due to the steroids. I have also reviewed the CAT scan - as above. There are no acute or significant abnormalities noted. Clinical status of the patient is significantly improved - compared to the initial presentation. However, the future status/prognosis for this patient does remain guarded. I will discuss the above with Dr. Osuna. Mono Bronson MD REBECCA
[2017-05-25] MEDS: POLYETHYLENE GLYCOL 3350 17 GM/Dose PACKET PO SCH ×2 (09:48→17:13)
[2017-05-25] MEDS: MethylPREDNISolone 40 mg Vial IVP SCH ×2 (09:49→21:12)
[2017-05-25] MEDS: oxyCODONE 20 mg ER Tab (oxyCONTIN) PO SCH ×2 (09:49→21:13)
--- NOTE | 2017-05-25 10:11 | PN ---
DATE: SUBJECTIVE: The patient has no complaints of any chest pain, no shortness of breath, no headaches. PHYSICAL EXAMINATION VITAL SIGNS: Temperature is 98, pulse is 94, blood pressure 115/89, respirations 19. GENERAL: The patient is lying in bed, flat, comfortable. HEENT: No oral lesion. Anicteric sclerae. Moist mucosa. NECK: No JVD, adenopathy, or thyromegaly. CARDIOVASCULAR: S1 and S2, regular. No murmurs, rubs, or gallops. LUNGS: Clear to auscultation bilaterally. No wheeze, rales, or rhonchi. ABDOMEN: Bowel sounds are positive. Soft, nontender and nondistended. EXTREMITIES: No cyanosis, clubbing or edema. LABS: CT of the chest done, shows no acute findings. ASSESSMENT 1. Viral syndrome secondary to influenza infection. 2. Hypoxia, improved. 3. Chronic obstructive pulmonary disease, acute. 4. Hypertension. 5. Chronic back pain. 6. Smoking. PLAN: The patient is currently comfortable. She is going to continue with metoprolol. She is on nicotine patch. She is going to continue with MiraLax for constipation. The patient is on narcotics for her back, she is going to continue. She is on Solu-Medrol. She is receiving Tamiflu. The patient is on heart-healthy diet. Andrew Osuna MD
--- NOTE | 2017-05-26 08:31 | CP.PCM.PN ---
Subjective - Date & Time of Evaluation Date of Evaluation: 05/26/17 Time of Evaluation: 07:00 - Subjective Subjective: Stable on 3R. She feels better.. Some dyspnea while walking. "Anxious" at times. V/S noted. PE: Lungs: clear Cor: S1S2 Abd.: soft Ext.: no edema Neuro.: alert CT Chest noted Objective - Vital Signs/Intake and Output Vital Signs (last 24 hours): Temp Pulse Resp BP Pulse Ox 98.8 F 97 H 19 117/96 H 98 05/25/17 16:00 05/25/17 16:00 05/25/17 16:00 05/25/17 16:00 05/25/17 16:00 Intake and Output: 05/26/17 05/26/17 06:59 18:59 Intake Total 540 Balance 540 - Medications Medications: Current Medications Albuterol/Ipratropium (Duoneb 3 Mg/0.5 Mg (3 Ml) Ud) 3 ml IH TIDRESP [facility] Last Admin: 05/25/17 19:48 Dose: 3 ml Amlodipine Besylate (Norvasc) 5 mg PO DAILY [facility] Last Admin: 05/25/17 09:49 Dose: 5 mg Budesonide (Pulmicort Respules) 0.5 mg IH [id number] [facility] Last Admin: 05/25/17 19:48 Dose: 0.5 mg Fluconazole (Diflucan) 100 mg PO BID [facility] PRN Reason: Protocol Last Admin: 05/25/17 21:13 Dose: 100 mg Lorazepam (Ativan) 0.5 mg PO DAILY PRN; Protocol PRN Reason: Anxiety Metoprolol Tartrate (Lopressor) 50 mg PO BRKDIN [facility] Last Admin: 05/25/17 17:12 Dose: 50 mg Nicotine (Nicoderm Cq) 1 patch TD DAILY [facility] Last Admin: 05/25/17 09:48 Dose: 1 patch Oseltamivir Phosphate (Tamiflu Cap) 75 mg PO BID [facility] PRN Reason: Protocol Stop: 05/28/17 06:40 Last Admin: 05/25/17 17:12 Dose: 75 mg Oxycodone HCl (Oxycodone Immediate Release Tab) 10 mg PO Q6 PRN PRN Reason: Pain, severe (8-10) Last Admin: 05/23/17 16:47 Dose: 10 mg Oxycodone HCl (Oxycontin Extended Release Tab) 30 mg PO Q12 [facility] Last Admin: 05/25/17 21:13 Dose: 30 mg Polyethylene Glycol (Miralax) 17 gm PO BID [facility] Last Admin: 05/25/17 17:13 Dose: 17 gm Prednisone (Prednisone Tab) 30 mg PO DAILY [facility] - Labs Labs: 05/24/17 06:10 Assessment and Plan - Assessment and Plan (Free Text) Assessment: SOB/Cough/Wheezing Severe COPD with acute bronchitis Influenza Smoker/Quitting HBP PN Migraine KAY Discogenic Disease Diverticulosis Colonic Polyps Plan: As per Drs. Irizarry and Audie Tamiflu Resp. Tx. OOB as ezra Daniel. Patch, 14/24 hrs and step down to 7/24 hrs as out pt. Smoking cessation d/w her again. Out-pt. elective nuclear stress testing when stabilized.
--- NOTE | 2017-05-26 08:42 | PN ---
DATE: SUBJECTIVE: The patient has no complaints of any headaches or dizziness. No nausea. PHYSICAL EXAMINATION VITAL SIGNS: Temperature is 98, pulse of 97, blood pressure 117/96, respirations 19. GENERAL: The patient is lying in bed, flat, comfortable. HEENT: No oral lesion. Anicteric sclerae. Moist mucosa. NECK: No JVD, adenopathy, or thyromegaly. CARDIOVASCULAR: S1 and S2, regular. No murmurs, rubs, or gallops. LUNGS: Clear to auscultation bilaterally. No wheeze, rales, or rhonchi. ABDOMEN: Bowel sounds are positive. Soft, nontender and nondistended. EXTREMITIES: No cyanosis, clubbing or edema. ASSESSMENT 1. Viral syndrome secondary to influenza infection. 2. Thrush. 3. Hypoxia, improved. 4. Chronic obstructive pulmonary disease, acute. 5. Hypertension. 6. Chronic back pain. 7. Smoking. PLAN: The patient is on Diflucan for her thrush. She is going to continue with Ativan as needed. She is on metoprolol. She is on nicotine patch for smoking. She is receiving pain medications, OxyContin and oxycodone for breakthrough pain. She is on steroids. She is continuing with her Tamiflu. She is on a heart-healthy diet. She is qualified for the transitional care unit. She was seen by Physical Therapy. They feel that she is independent enough to go home with services. Andrew Osuna MD
[2017-05-26] MEDS: Albuterol-Ipratrop 3 mg / 0.5 (3 ml) UD IH SCH ×3 (08:50→19:51)
[2017-05-26] MEDS: Budesonide 0.5 mg/2 ml Inhal Susp UD IH SCH ×2 (08:50→19:52)
[2017-05-26] MEDS: oxyCODONE 20 mg ER Tab (oxyCONTIN) PO SCH ×2 (09:44→21:36)
[2017-05-26] MEDS: POLYETHYLENE GLYCOL 3350 17 GM/Dose PACKET PO SCH ×2 (09:45→17:05)
--- NOTE | 2017-05-26 09:50 | PN ---
DATE: 05/26/2017 PULMONARY NOTE SUBJECTIVE: The patient appears very comfortable this morning. She is not short of breath at rest. PHYSICAL EXAMINATION VITAL SIGNS: Last temperature recorded 98.8, pulse 88, respirations 18, blood pressure 117/96. Oxygen saturation on nasal cannula is 98%. HEENT: Normocephalic, atraumatic. No JVD. CARDIOVASCULAR: Systolic ejection murmur at the lower left sternal border. No S3 gallop. LUNGS: Clear bilaterally. EXTREMITIES: No clubbing, cyanosis or edema. Calves are nontender to palpation. GI: Abdomen is soft, nontender and nondistended. Bowel sounds are positive. SKIN: No acute rash. NEUROLOGIC: Limited at the present time. IMPRESSION: 1. Recurrent bronchitis. 2. Advanced chronic obstructive pulmonary disease. 3. Asthma. 4. Hypoxemia. 5. Influenza A positivity. PLAN: The patient appears very comfortable this morning. She is not short of breath at rest. She does state to feeling much better overall. On physical exam, her lungs are now clear. Oxygen saturation on nasal cannula is 98%. I will continue the current nebulizer treatments and change to oral steroids this morning. The clinical status of the patient is significantly improved overall. However, the patient does still complain of dyspnea on exertion. As above, her lungs are now clear. I will order an echocardiogram this morning - to evaluate the right ventricular systolic pressure (rule out pulmonary hypertension). Again, the clinical status of this patient is significantly improved overall. I will discuss the above with Dr. Osuna. Mono Bronson MD REBECCA
--- NOTE | 2017-05-26 18:30 | CARD ---
APPROVED REPORT EXAM: Two-dimensional and M-mode echocardiogram with Doppler and color Doppler. INDICATION Pulmonary Hypertention 2D DIMENSIONS Left Atrium (2D)2.6 (1.6-4.0cm)IVSd0.9 (0.7-1.1cm) LVDd2.8 (3.9-5.9cm)PWd1.0 (0.7-1.1cm) LVDs2.0 (2.5-4.0cm)FS (%) 26.7 % LVEF (%)54.2 (>50%) M-Mode DIMENSIONS Aortic Root2.20 (2.2-3.7cm)Aortic Cusp Exc.1.60 (1.5-2.0cm) Aortic Valve AoV Peak Fqyftjfx723.0cm/Becca Peak GR.7mmHg Mitral Valve MV E Yokhdirr76.7cm/sMV A Raxarnqg57.0cm/sE/A ratio0.8 TDI E/Lateral E'0.0E/Medial E'0.0 Tricuspid Valve TR Peak Bettdksd125gt/sRAP [id number] Peak Gr.40mmHg IBJQ76rkSs LEFT VENTRICLE The left ventricle is normal size. There is normal left ventricular wall thickness. The left ventricular function is normal. The left ventricular ejection fraction is within the normal range. There is normal LV segmental wall motion. Transmitral Doppler flow pattern is Grade I-abnormal relaxation pattern. RIGHT VENTRICLE The right ventricle is mildly dilated. There is normal right ventricular wall thickness. RV Systolic function is mildly reduced. ATRIA The left atrium size is normal. The right atrium size is normal. AORTIC VALVE The aortic valve is normal in structure. No aortic regurgitation is present. MITRAL VALVE The mitral valve is normal in structure. There is no mitral valve regurgitation noted. TRICUSPID VALVE There is moderate pulmonary hypertension. GREAT VESSELS The aortic root is normal in size. The IVC is normal in size and collapses >50% with inspiration. <Conclusion> The left ventricle is normal size. There is normal left ventricular wall thickness. The left ventricular function is normal. The left ventricular ejection fraction is within the normal range. There is normal LV segmental wall motion. Transmitral Doppler flow pattern is Grade I-abnormal relaxation pattern. The right ventricle is mildly dilated. RV Systolic function is mildly reduced. There is moderate pulmonary hypertension.
[2017-05-27 08:03] LABS: HEMOGLOBIN 14.2 g/dL (12.0-16.0); MEAN CELL VOLUME 87.4 fl (80.0-105.0); MEAN CORPUSCULAR HEMOGLOBIN 28.1 pg (25.0-35.0); MEAN CORPUSCULAR HGB CONC 32.1 g/dl (31.0-37.0); MEAN PLATELET VOLUME 9.3 fl (7.0-11.0); RBC 5.06 10^6/uL (3.5-6.1); RED CELL DISTRIBUTION WIDTH 13.3 % (11.5-14.5); WHITE BLOOD COUNT 12.5 10^3/ul (4.5-11.0)
[2017-05-27] MEDS: Budesonide 0.5 mg/2 ml Inhal Susp UD IH SCH ×2 (08:12→19:48)
[2017-05-27] MEDS: Albuterol-Ipratrop 3 mg / 0.5 (3 ml) UD IH SCH ×3 (08:12→19:48)
[2017-05-27 08:39] LABS: ALB/GLOB RATIO 1.3 (1.1-1.8); ALBUMIN 3.8 g/dL (3.0-4.8); ALT/SGPT 51 U/L (7-56); AST/SGOT 40 U/L (14-36); BLOOD UREA NITROGEN 48 mg/dL (7-21); CALCIUM 9.6 mg/dL (8.4-10.5); GFR AFRICAN-AMERICAN > 60; GFR NON-AFRICAN AMERICAN 50
[2017-05-27] MEDS: oxyCODONE 20 mg ER Tab (oxyCONTIN) PO SCH ×2 (09:14→21:17)
[2017-05-27] MEDS: POLYETHYLENE GLYCOL 3350 17 GM/Dose PACKET PO SCH ×2 (09:18→18:08)
--- NOTE | 2017-05-27 11:32 | PN ---
DATE: 05/27/2017 SUBJECTIVE: The patient is seen lying in bed on 3R. She continues to have exertional dyspnea. She denies any chest pain. She feels frustrated that she has not been told the cause of her dyspnea to her satisfaction. CURRENT MEDICATIONS: Include Ativan, fluconazole, DuoNeb inhaler, metoprolol 50 mg b.i.d., Nicoderm patch, Norvasc 5 mg daily, oxycodone, prednisone 30 mg daily, Pulmicort and Tamiflu. OBJECTIVE: GENERAL: She is a middle-aged woman, who appears somewhat anxious. VITAL SIGNS: Her blood pressure is 120/76 with pulse of 84, respirations of 14. She is afebrile. HEENT: No JVD. CHEST: Bilateral scattered rhonchi. HEART: PMI in normal position. Soft systolic murmur in the left sternal border. ABDOMEN: Soft, nontender. Normoactive bowel sounds. EXTREMITIES: No edema. DIAGNOSTIC DATA: Potassium 5.5, sodium is 130, BUN and creatinine are 48 and 1.1. White count 12.5, hemoglobin and hematocrit 14.2 and 44.2 with platelet count of 203,000. Echocardiogram revealed normal LV size and systolic function. The RVSP was mildly elevated at 40 mmHg. The right ventricle is reportedly mildly dilated. IMPRESSION: 1. Dyspnea, appears primarily pulmonary in nature at this time. 2. Acute bronchitis, clinically improved. 3. Influenza. 4. Tobacco abuse. RECOMMENDATIONS: Continue smoking abstinence is advised. Continued respiratory treatments are advised as well. An eventual outpatient stress test will be planned. We will continue to follow and make further recommendations as appropriate. Costa Breaux MD
--- NOTE | 2017-05-27 14:50 | PN ---
DATE: 05/27/2017 SUBJECTIVE: The patient has no complaints of any chest pain or shortness of breath. No headaches. The patient states she continues to have shortness of breath when she exerts herself. PHYSICAL EXAMINATION: VITAL SIGNS: Temperature is 97.5, pulse of 84, blood pressure 120/76, respirations 22. GENERAL: The patient is lying in bed, flat, comfortable. HEENT: No oral lesion. Anicteric sclerae. Moist mucosa. NECK: No JVD, adenopathy, or thyromegaly. CARDIOVASCULAR: S1 and S2, regular. No murmurs, rubs, or gallops. LUNGS: Clear to auscultation bilaterally. No wheeze, rales, or rhonchi. ABDOMEN: Bowel sounds are positive. Soft, nontender and nondistended. EXTREMITIES: No cyanosis, clubbing or edema. LABORATORY DATA: White count of 12.5, hemoglobin is 14.2, potassium is 5.5, creatinine is 1.1. Echo shows left LV with normal size. There is an EF that is within normal range. There is moderate pulmonary hypertension. ASSESSMENT: 1. Viral syndrome secondary to influenza infection. 2. Thrush. 3. Hypoxia, improved. 4. Chronic obstructive pulmonary disease, acute. 5. Hypertension. 6. Chronic back pain. 7. Smoking. PLAN: The patient is currently on Diflucan. She is going to be on metoprolol. She is on MiraLax for constipation. The patient is on nicotine patch. She is on Norvasc for hypertension. She is mildly hyponatremic. She is on Percocet for pain. She is on prednisone. She is on heart-healthy diet. The patient does not have much wheezing. She is getting Physical Therapy. She has been advised to go home with services. Andrew Osuna MD
--- NOTE | 2017-05-27 15:26 | PN ---
DATE: 05/27/2017 PULMONARY PROGRESS NOTE SUBJECTIVE: The patient was seen and examined at bedside. She states she feels better. She is not short of breath at rest. She is concerned about the results of echocardiogram and possibility of pulmonary hypertension. PHYSICAL EXAMINATION: HEAD, EYES, EARS, NOSE, AND THROAT: Within normal limits. NECK: Supple with no jugular vein distention. CHEST: Symmetrical. CARDIOVASCULAR: S1, S2. No S3. Regular. GASTROINTESTINAL: Soft, nontender, no organomegaly. EXTREMITIES: No pedal edema. SKIN: Clear with no skin rashes. No cyanosis. NEUROLOGIC: No focal deficits. I reviewed the patient's echocardiogram. Her right ventricular systolic pressure is elevated at 50, that indicates moderate pulmonary hypertension. Her right atrial pressure is 10. The left ventricle is normal in size and the left ventricular function is normal. The right ventricle is mildly dilated and RV systolic function is mildly reduced. There is moderate pulmonary hypertension. ASSESSMENT: Newly-diagnosed pulmonary hypertension. The patient should undergo a workup for pulmonary hypertension, which should include pulmonary function testing. If hypoxic, she should have an overnight pulse oximetry. She should also have a ventilation/perfusion lung scan to rule out small recurrent pulmonary emboli. It is my initial assessment that those studies may be negative and the patient will need a right heart catheterization to establish a diagnosis of primary pulmonary hypertension and administer the correct medications. She would be a good candidate to start Opsumit which is an ERA. We will discuss with Dr. Bronson. Donavan Kirk MD
[2017-05-27 18:42] VITALS: O2SAT 99
[2017-05-27] MEDS: oxyCODONE 5 mg Immediate Release Tab PO PRN (19:39)
[2017-05-28 01:28] LABS: ALB/GLOB RATIO 1.3 (1.1-1.8); ALBUMIN 3.9 g/dL (3.0-4.8); CALCIUM 9.6 mg/dL (8.4-10.5)
[2017-05-28] MEDS ORDERED: Sod Polystyrene Sulf 15 gm/60 ml Susp PO ONE (02:14)
[2017-05-28] MEDS: Albuterol-Ipratrop 3 mg / 0.5 (3 ml) UD IH SCH (07:30)
[2017-05-28] MEDS: Budesonide 0.5 mg/2 ml Inhal Susp UD IH SCH (07:30)
[2017-05-28 07:51] VITALS: BP 115/89; PULSE 90; RESP 18; TEMP 97.4
[2017-05-28] MEDS: oxyCODONE 20 mg ER Tab (oxyCONTIN) PO SCH (09:42)
[2017-05-28] MEDS: POLYETHYLENE GLYCOL 3350 17 GM/Dose PACKET PO SCH (09:42)
--- NOTE | 2017-05-29 07:22 | DS ---
HISTORY OF PRESENT ILLNESS: Patient has no complaints of any chest pain. No shortness of breath. No headache or dizziness. This is a 61-year-old female who had come in to the hospital with what is viral syndrome and flu. She is currently feeling better. She does get shortness of breath when she exerts herself. She was able to walk with physical therapy and was recommended that she be discharged home instead of going to rehab facility. The patient is being followed by Pulmonary. She returned to 99% on oxygenation. She has no complaints of any headaches or dizziness. PHYSICAL EXAMINATION VITAL SIGNS: Temperature of 97.4, pulse of 90, blood pressure 115/89, respirations 18, O2 saturation 99%. GENERAL: The patient is lying in bed, flat, comfortable. HEENT: No oral lesion. Anicteric sclerae. Moist mucosa. NECK: No JVD, adenopathy, or thyromegaly. CARDIOVASCULAR: S1 and S2, regular. No murmurs, rubs, or gallops. LUNGS: Clear to auscultation bilaterally. No wheeze, rales, or rhonchi. ABDOMEN: Bowel sounds are positive. Soft, nontender and nondistended. EXTREMITIES: No cyanosis, clubbing or edema. ASSESSMENT 1. Viral syndrome secondary to influenza infection. 2. Depression. 3. Hypoxia, improved. 4. Chronic obstructive pulmonary disease. 5. Hypertension. 6. Chronic back pain. 7. Smoking. 8. Pulmonary hypertension. PLAN: The patient is currently comfortable. She has an echo that was done which showed moderate pulmonary hypertension. The pulmonary hypertension may be a cause of her shortness of breath on exertion. She will see Dr. Campuzano as an outpatient to follow up. She is on Diflucan and will continue this at home. She is going to continue with prednisone and will be tapered. I gave her 1-week supply of her oxycodone and OxyContin. She is going to follow up with Dr. Schneider. DIET: She is on heart-healthy diet. DISCHARGE INSTRUCTIONS: She is advised to come back to the hospital if her symptoms worsen. CONDITION: Stable. ACTIVITIES: Increase as tolerated. Andrew Osuna MD
--- NOTE | 2017-05-29 08:59 | PN ---
DATE: 05/28/2017 PULMONARY PROGRESS NOTE SUBJECTIVE: The patient was seen and examined at the bedside. She states that she feels better, but she is still short of breath on exertion. PHYSICAL EXAMINATION: VITAL SIGNS: Temperature 97.4, pulse 90, respirations 18, and pulse oximetry is 99% on nasal cannula. HEENT: Examination of head, ears, nose, and throat is within normal limits. NECK: Supple with no jugular vein distentions. CHEST: Symmetrical. CARDIOVASCULAR: S1 and S2. No S3. Regular. PULMONARY: Clear to auscultation. GASTROINTESTINAL: Soft, nontender. No organomegaly. EXTREMITIES: No edema. SKIN: Clear with no cyanosis and no skin rash. NEUROLOGIC: Limited at the present time. LABORATORY DATA: There is no new laboratory data. ASSESSMENT: 1. Pulmonary hypertension. 2. Shortness of breath. PLAN: I have reviewed the patient's echocardiogram that indicates moderate pulmonary hypertension with a right ventricular systolic pressure of 50. The right ventricular function is mildly reduced. The left ventricle and left atrium look normal. This may be primary pulmonary hypertension. I outlined the necessary workup in my yesterday's note. Donavan Kirk MD
== END 2017-05-28 14:00 | disposition home or self-care (01) | DRG 194 ==
LOC: ED 10:50 → ERH 15:59 → 5RNO 20:36 → 3RNO 05-23 11:02 → OBSVTOIN 05-23 15:43
PROVIDERS: ADMIT Internal Medicine Nephrology; ATTEND Internal Medicine Nephrology
PROC: 3E0F7GC Introduction of Other Therapeutic Substance into Respiratory Tract, Via Natural or Artificial Opening (ICD-10-PCS; principal; 2017-05-22)
DX: J10.1 Influenza due to other identified influenza virus with other respiratory manifestations (principal); J44.1 Chronic obstructive pulmonary disease with (acute) exacerbation; I27.20 Pulmonary hypertension, unspecified; G62.9 Polyneuropathy, unspecified; J44.0 Chronic obstructive pulmonary disease with (acute) lower respiratory infection; J20.9 Acute bronchitis, unspecified; B37.9 Candidiasis, unspecified; R09.02 Hypoxemia; F17.210 Nicotine dependence, cigarettes, uncomplicated; G89.29 Other chronic pain; M54.9 Dorsalgia, unspecified; I10 Essential (primary) hypertension; G43.909 Migraine, unspecified, not intractable, without status migrainosus; F32.9 Major depressive disorder, single episode, unspecified

== ENCOUNTER 2017-06-09 12:10 | Inpatient (IN) | payer OTHER ==
[2017-06-09 12:16] VITALS: BMI 19.3
--- NOTE | 2017-06-09 12:41 | ED PDOC ---
Arrival/HPI - General Chief Complaint: Shortness Of Breath Time Seen by Provider: 06/09/17 12:19 Historian: Patient - History of Present Illness Narrative History of Present Illness (Text): 06/09/17 12:29 pt p/w + 3 days onset of progressively worsening left lower jaw/face swelling, + tenderness, and today noted expressible blood; pt states she has been feeling intermittently warm and sweaty over the last 2-3 days, and this morning awoke with severe diaphoresis; pt states + sob that is worsening as well, + cough with increasing phlegm like sounds but very little sputumn is noted; no cp/ palpitations; no abd pain, + poor appetite, ? nausea, no vomiting; no urinary/ bowel changes, no rashes, no fall/trauma/sick contact, no travel; no LOC, + weakness/lightheadedness; pt is here for further eval; pt's without other complaints PCP: HEMANTH pt has pulm/cardiologists Time/Duration: < week (3 days) Symptom Onset: Gradual Symptom Course: Worsening Quality: Throbbing Severity Level: 10, Severe Activities at Onset: Rest Context: Home Past Medical History - Provider Review Nursing Documentation Reviewed: Yes - Travel History Have you recently traveled outside [place] w/in the past 3 mons?: No - Past History Past History: No Previous - Infectious Disease Hx of Infectious Diseases: None - Tetanus Immunization Tetanus Immunization: Unknown - Reproductive Menopause: Yes - Cardiac Hx Cardiac Disorders: Yes Hx Hypertension: Yes - Pulmonary Hx Chronic Obstructive Pulmonary Disease (COPD): Yes - Neurological Hx Neurological Disorder: Yes Hx Dizziness: Yes Hx Migraine: Yes - HEENT Hx HEENT Disorder: Yes (sx esophagus) - Renal Hx Renal Disorder: No - Endocrine/Metabolic Hx Endocrine Disorders: No - Hematological/Oncological Hx Blood Disorders: No - Integumentary Hx Dermatological Disorder: No - Musculoskeletal/Rheumatological Hx Musculoskeletal Disorders: Yes Hx Back Pain: Yes Hx Falls: Yes (legs give out, "gila") Hx Herniated Disk: Yes - Gastrointestinal Hx Gastrointestinal Disorders: Yes Hx Diverticulitis: Yes - Genitourinary/Gynecological Hx Genitourinary Disorders: Yes (c section x 1) - Psychiatric Hx Psychophysiologic Disorder: Yes Hx Anxiety: Yes Hx Substance Use: Yes (denies) - Past Surgical History Past Surgical History: No Previous - Surgical History Other/Comment: sX ON ESOPHAGUS & STOMACH -large scarring to mid back. - Anesthesia Hx Anesthesia: Yes Hx Anesthesia Reactions: No Hx Malignant Hyperthermia: No - Suicidal Assessment Feels Threatened In Home Enviroment: No Family/Social History - Physician Review Nursing Documentation Reviewed: Yes Family/Social History: No Known Family HX Smoking Status: Former Smoker (stop smoking 1 month ago) Hx Alcohol Use: Yes (h/o) Hx Substance Use: Yes (denies) Hx Substance Use Treatment: No Allergies/Home Meds Allergies/Adverse Reactions: Allergies No Known Allergies Allergy (Verified 05/22/17 18:38) Home Medications: Home Meds Medication Instructions Recorded Confirmed Metoprolol Tartrate 50 mg PO BID 08/25/13 06/09/17 Valsartan [Diovan] 320 mg PO DAILY 02/02/16 06/09/17 amLODIPine [Norvasc] 10 mg PO DAILY 02/02/16 06/09/17 Lorazepam [Ativan] 0.5 mg PO DAILY PRN 05/11/17 05/22/17 Umeclidinium Brm/Vilanterol Tr 1 each IH DAILY 05/11/17 06/09/17 [Anoro Ellipta 62.5-25 Mcg INH] Beclomethasone Dipropionate [Qvar 8.7 gm IH BID 05/12/17 05/22/17 80 mcg] Review of Systems - Review of Systems Constitutional: Fevers, Night Sweats Eyes: Normal ENT: Other (left face swelling/pain) Respiratory: SOB, Cough. absent: Wheezing Cardiovascular: Normal Gastrointestinal: Normal Genitourinary Female: Normal Musculoskeletal: Normal Skin: Normal Neurological: Normal Endocrine: Normal Hemo/Lymphatic: Normal Psychiatric: Normal Physical Exam Vital Signs Reviewed: Yes Vital Signs Temp Pulse Resp BP Pulse Ox 06/09/17 15:10 11 L 18 93/62 L 97 06/09/17 12:29 99.8 F H 131 H 18 101/71 96 Temperature: Afebrile Blood Pressure: Normal Pulse: Tachycardic Respiratory Rate: Normal Appearance: Positive for: Well-Appearing, Other (uncomfortable, resting in bed, alert/awake, GCS = 15, oriented x 3, NAD, cooperative, follows command with ease ) Pain Distress: None Mental Status: Positive for: Alert and Oriented X 3 - Systems Exam Head: Present: Atraumatic, Normocephalic, Other (mild bi-temporal wasting) Pupils: Present: PERRL Extroacular Muscles: Present: EOMI Conjunctiva: Present: Normal Ears: Present: Normal Mouth: Present: Other (poor dentitions with ginvival disease, noted pt wearing partial false teeth; + left mid/lower mandible tenderness/swelling/bogginess on exam, + expressible blood/discharge is noted, + left lower mid-facial swelling is also noted; no drooling/stridor, no dysphonia, no exudate/lesions) Pharnyx: Present: Normal, Other (uvula/tongue are midline, no exudate/lesions) Nose (External): Present: Atraumatic Nose (Internal): Present: Normal Inspection Neck: Present: Normal Range of Motion, Trachea Midline, Other (no midline tenderness, no step off, no meningeal signs, no nuchal rigidity). No: MIDLINE TENDERNESS Respiratory/Chest: Present: Clear to Auscultation, Good Air Exchange, Other ( CTA b/l, no w/r/r, no accessory muscle use noted, no tachypenia, no belly retractions; coarse breath sounds bibasiliar). No: Respiratory Distress Cardiovascular: Present: Regular Rate and Rhythm, Normal S1, S2. No: Murmurs Abdomen: Present: Normal Bowel Sounds, Other (thin female, no focal tenderness, no yi's sign, no mcburney's point tenderness, no masses/rebound/guarding/ rigidity) Back: Present: Normal Inspection. No: Midline Tenderness Upper Extremity: Present: Normal Inspection, Normal ROM, NORMAL PULSES, Neurovascularly Intact, Capillary Refill < 2s Lower Extremity: Present: Normal Inspection, NORMAL PULSES, Normal ROM, Neurovascularly Intact, Capillary Refill < 2 s, Other (+ ambulatory) Neurological: Present: GCS=15, CN II-XII Intact, Speech Normal Skin: Present: Warm, Normal Color, Other (cap refill < 1sec, no ulcerations, no petechiae) Psychiatric: Present: Alert, Oriented x 3 Medical Decision Making ED Course and Treatment: 06/09/17 12:25 Impression: 1) left lower face swelling/spitting up blood; 2) worsening sob i have consider all the differential diagnosis regarding pt's chief medical complaints/clinical findings, including but are not limited to: 1) left lower face swelling/spitting up blood; 2) worsening sob A/P: 1) left lower face swelling/spitting up blood; 2) worsening sob - labs - iv - xray - ct - abx - observe - supportive care 06/09/2017 14:23 Chest X-ray IMPRESSION: No active disease. Dictator: Jhoan Stover MD 06/09/17 [id number] pt is doing well pt is comfortable after 3 treatments, pt felt improved, no sob pt is awaiting CT results 1600 - pt is made aware of her medical results agrees with admission I spoke with ENT continuous process tanner rotary drum, Dr Velazquez, agrees with ED mgt/txt, will see patient in the ED in ~ 1 hour; would like pt admitted to medicine 06/09/17 16:[address] Flynn (admitting for Dr Schneider) 06/09/17 17:[address] Osuna, made aware, agrees with admission, would also like to consult Dr Gurrola (ID) Re-evaluation Time: 15:00 Reassessment Condition: Improving,but remains with symptoms - Lab Interpretations Lab Results: 06/09/17 13:00 06/09/17 13:00 Lab Results 06/09/17 16:45: pO2 107 H, VBG pH 7.33, VBG pCO2 55.0, VBG HCO3 29.0 H, VBG Total CO2 30.7 H, VBG O2 Sat (Calc) 99.2 H, VBG Base Excess 1.9, VBG Potassium 4.0, Sodium 131.0 L, Chloride 98.0, Glucose 116 H, Lactate 3.2 H, FiO2 21.0, Venous Blood Potassium 4.0 06/09/17 13:00: C-React Prot High Sens > 15.00 H 06/09/17 13:00: Sodium 135, Chloride 96 L, Potassium 4.4, Carbon Dioxide 29, Anion Gap 14, BUN 14, Creatinine 1.0, Est GFR ( Amer) > 60, Est GFR (Non- Af Amer) 56, Random Glucose 149 H, Calcium 9.5, Total Bilirubin 0.7, AST 29, ALT 29, Alkaline Phosphatase 85, NT-Pro-B Natriuret Pep 79.1, Total Protein 6.8 , Albumin 3.5, Globulin 3.3, Albumin/Globulin Ratio 1.1, Lipase 45 06/09/17 13:00: WBC 11.9 H, RBC 4.19, Hgb 11.8 L D, Hct 36.4, MCV 86.9, MCH 28.2 , MCHC 32.4, RDW 13.1, Plt Count 159, MPV 8.8, Gran % 78.3 H, Lymph % (Auto) 12.0 L, [place] % (Auto) 9.1 H, Eos % (Auto) 0.4 L, Baso % (Auto) 0.2, Gran # 9.29 H, Lymph # (Auto) 1.4, [place] # (Auto) 1.1 H, Eos # (Auto) 0.1, Baso # (Auto) 0.02 , ESR 69 H 06/09/17 12:45: pO2 95 H, VBG pH 7.40, VBG pCO2 51.0, VBG HCO3 31.6 H, VBG Total CO2 33.2 H, VBG O2 Sat (Calc) 99.0 H, VBG Base Excess 5.5 H, VBG Potassium 4.8, Sodium 132.0, Chloride 96.0 L, Glucose 149 H, Lactate 2.2 H, FiO2 21.0, Venous Blood Potassium 4.8 I have reviewed the lab results: Yes Interpretation: Abnormal lab values (elevated ESR, mildly elevated GLUC) - RAD Interpretation Narrative RAD Interpretations (Text): 06/09/17 16:15 PROCEDURE: CT scan maxillofacial skeleton dated 04/08/2018. HISTORY: Rule out left lower facial/jaw infection/abscess COMPARISON: No prior study available for comparison however correlation made with prior CT scan brain dated 06/17/2014 MRI of the brain dated 10/09/2013. . TECHNIQUE: Contiguous helical/transaxial CT images of the maxillofacial bones were obtained following administration of IV contrast. Coronal and sagittal reformats were generated. Intravenous contrast Dose: 100 cc Omnipaque 350 contrast material Radiation dose: Total exam DLP = 774.8 mGy-cm. This CT exam was performed using one or more of the following dose reduction techniques: Automated exposure control, adjustment of the mA and/or kV according to patient size, and/or use of iterative reconstruction technique. FINDINGS: The current study reveals a infiltration/induration within the soft tissues along the left anterior margin of the mandible extending from the midbody anteriorly to the left anterolateral on symphysis. There is a small abscess collection along the buccal surface of the anterolateral which measures approximately 14 mm AP x 18.7 mm cc x 7 mm trans in maximum diameters. . The cortex of the adjacent mandible appears grossly intact. Source of infection is unclear from this exam. There are relatively small bilateral cervical lymph nodes with 2 lymph nodes seen in the left submandibular region the largest measuring approximately 11.4 mm and another adjacent to the posterior aspect of the mandibular ramus measuring 9.3 mm. Few small submental, jugulodigastric and posterior cervical spaces lymph nodes are present. There is minor asymmetry of the vallecular, likely due to some encroaching lingual tonsil and possibly some residual/retained secretion. Free margin of the epiglottis unremarkable. Oral cavity structures unremarkable. . [place] tonsils do not appear significantly enlarged. Minor asymmetry of the pyriform sinuses. True vocal cords appear symmetric. The maxillary teeth are absent with what appears to represent an in situ denture plate. No evidence of acute maxillofacial skeletal fracture. Orbits and contents unremarkable. Globes intact and lenses appropriately located. There are no retrobulbar hemorrhages or collections. Optic nerves and extraocular musculature unremarkable. The visualized paranasal sinuses are relatively well-developed and currently well-aerated. No fluid levels seen to suggest acute sinusitis. Minor mucosal thickening seen left chamber sphenoid sinus. Mastoid air complexes are well-developed and currently well-aerated. Move IMPRESSION: The there is a small of lingual surface elliptical shaped abscess collection abutting the anterolateral above body of the left of mandible, source of which is unclear. Few small nonspecific bilateral cervical lymph nodes the largest a 2 in the left submandibular region as described Minor mucosal thickening left chamber sphenoid sinus. HISTORY: coughing, sob COMPARISON: 05/22/2017 TECHNIQUE: Chest PA and lateral FINDINGS: LUNGS: No active pulmonary disease. PLEURA: Chronic blunting of left costophrenic angle CARDIOVASCULAR: Normal. OSSEOUS STRUCTURES: No significant abnormalities. VISUALIZED UPPER ABDOMEN: Normal. OTHER FINDINGS: None. IMPRESSION: No active disease. Radiology Orders: 06/09/17 12:29 CHEST TWO VIEWS (PA/LAT) [RAD] Stat 06/09/17 12:31 MAXILLOFACIAL W/CONTRAST [CT] Stat Picking Tech: Radiologist - Medication Orders Current Medication Orders: Discontinued Medications Acetaminophen (Tylenol 325mg Tab) 650 mg PO STAT STA Stop: 06/09/17 15:43 Last Admin: 06/09/17 15:48 Dose: 650 mg MAR Pain/Vitals Document 06/09/17 15:48 SRE (Rec: 06/09/17 15:48 SRE [id number]) Pain Reassessment Is This A Pain ReAssessment? Yes Albuterol/Ipratropium (Duoneb 3 Mg/0.5 Mg (3 Ml) Ud) 3 ml IH Q15M ANGELA Stop: 06/09/17 13:01 Last Admin: 06/09/17 13:30 Dose: 3 ml Ampicillin Sodium/Sulbactam (Sodium 3 gm/ Sodium Chloride) 100 mls @ 100 mls/ hr IVPB STAT STA PRN Reason: Protocol Stop: 06/09/17 13:32 Last Admin: 06/09/17 13:18 Dose: 100 mls/hr eMAR Start Stop Document 06/09/17 13:18 SRE (Rec: 06/09/17 13:19 SRE [id number]) Intravenous Solution Start Date 06/09/17 Start Time 13:18 End Date 06/09/17 End time 14:00 Total Infusion Time 42 Disposition/Present on Arrival - Present on Arrival Any Indicators Present on Arrival: No History of DVT/PE: No History of Uncontrolled Diabetes: No Urinary Catheter: No History of Decub. Ulcer: No History Surgical Site Infection Following: None - Disposition Have Diagnosis and Disposition been Completed?: Yes Diagnosis: Abscess of mandible, Facial swelling, Shortness of breath Disposition: HOSPITALIZED Disposition Time: 16:28 Patient Plan: Admission Patient Problems: Current Active Problems Problem Status Onset Shortness of breath Acute Abscess of mandible Acute Facial swelling Acute Condition: STABLE Referrals: [facility], [Non-Staff] - Follow up with primary Forms: [employer] (Tajik)
[2017-06-09] MEDS: Albuterol-Ipratrop 3 mg / 0.5 (3 ml) UD IH SCH ×3 (13:00→13:30)
[2017-06-09 13:13] LABS: VENOUS BLOOD GAS BASE EXCESS 5.5 mmol/L (0.0-2.0); VENOUS BLOOD GAS PO2 95 mm/Hg (30-55)
[2017-06-09 13:24] LABS: BASO # 0.02 K/mm3 (0.0-2.0); BASO % 0.2 % (0.0-3.0); EOS # 0.1 (0.0-0.7); EOS % 0.4 % (1.5-5.0); GRAN # 9.29 (1.4-6.5); GRAN % 78.3 % (50.0-68.0); HEMOGLOBIN 11.8 g/dL (12.0-16.0); LYMPH # 1.4 (1.2-3.4); MEAN CELL VOLUME 86.9 fl (80.0-105.0); MEAN CORPUSCULAR HEMOGLOBIN 28.2 pg (25.0-35.0); MEAN CORPUSCULAR HGB CONC 32.4 g/dl (31.0-37.0); MEAN PLATELET VOLUME 8.8 fl (7.0-11.0); MONO # 1.1 (0.1-0.6); MONO % 9.1 % (1.0-6.0); RBC 4.19 10^6/uL (3.5-6.1); RED CELL DISTRIBUTION WIDTH 13.1 % (11.5-14.5); WHITE BLOOD COUNT 11.9 10^3/ul (4.5-11.0)
[2017-06-09 13:44] LABS: B-TYPE NATRIURETIC PEPTIDE 79.1 pg/mL (0-450)
[2017-06-09 13:47] LABS: ALB/GLOB RATIO 1.1 (1.1-1.8); ALBUMIN 3.5 g/dL (3.0-4.8); ALT/SGPT 29 U/L (7-56); AST/SGOT 29 U/L (14-36); BLOOD UREA NITROGEN 14 mg/dL (7-21); CALCIUM 9.5 mg/dL (8.4-10.5); GFR AFRICAN-AMERICAN > 60; GFR NON-AFRICAN AMERICAN 56; LIPASE 45 U/L (23-300)
[2017-06-09] MEDS ORDERED: Iohexol 350 MG/100 ML VIAL ONE (13:49)
--- NOTE | 2017-06-09 14:25 | RAD ---
HISTORY: coughing, sob COMPARISON: 05/22/2017 TECHNIQUE: Chest PA and lateral FINDINGS: LUNGS: No active pulmonary disease. PLEURA: Chronic blunting of left costophrenic angle CARDIOVASCULAR: Normal. OSSEOUS STRUCTURES: No significant abnormalities. VISUALIZED UPPER ABDOMEN: Normal. OTHER FINDINGS: None. IMPRESSION: No active disease.
--- NOTE | 2017-06-09 15:43 | CT ---
PROCEDURE: CT scan maxillofacial skeleton dated 04/08/2018. HISTORY: Rule out left lower facial/jaw infection/abscess COMPARISON: No prior study available for comparison however correlation made with prior CT scan brain dated 06/17/2014 MRI of the brain dated 10/09/2013. . TECHNIQUE: Contiguous helical/transaxial CT images of the maxillofacial bones were obtained following administration of IV contrast. Coronal and sagittal reformats were generated. Intravenous contrast Dose: 100 cc Omnipaque 350 contrast material Radiation dose: Total exam DLP = 774.8 mGy-cm. This CT exam was performed using one or more of the following dose reduction techniques: Automated exposure control, adjustment of the mA and/or kV according to patient size, and/or use of iterative reconstruction technique. FINDINGS: The current study reveals a infiltration/induration within the soft tissues along the left anterior margin of the mandible extending from the midbody anteriorly to the left anterolateral on symphysis. There is a small abscess collection along the buccal surface of the anterolateral which measures approximately 14 mm AP x 18.7 mm cc x 7 mm trans in maximum diameters. . The cortex of the adjacent mandible appears grossly intact. Source of infection is unclear from this exam. There are relatively small bilateral cervical lymph nodes with 2 lymph nodes seen in the left submandibular region the largest measuring approximately 11.4 mm and another adjacent to the posterior aspect of the mandibular ramus measuring 9.3 mm. Few small submental, jugulodigastric and posterior cervical spaces lymph nodes are present. There is minor asymmetry of the vallecular, likely due to some encroaching lingual tonsil and possibly some residual/retained secretion. Free margin of the epiglottis unremarkable. Oral cavity structures unremarkable. . [place] tonsils do not appear significantly enlarged. Minor asymmetry of the pyriform sinuses. True vocal cords appear symmetric. The maxillary teeth are absent with what appears to represent an in situ denture plate. No evidence of acute maxillofacial skeletal fracture. Orbits and contents unremarkable. Globes intact and lenses appropriately located. There are no retrobulbar hemorrhages or collections. Optic nerves and extraocular musculature unremarkable. The visualized paranasal sinuses are relatively well-developed and currently well-aerated. No fluid levels seen to suggest acute sinusitis. Minor mucosal thickening seen left chamber sphenoid sinus. Mastoid air complexes are well-developed and currently well-aerated. Move IMPRESSION: The there is a small of lingual surface elliptical shaped abscess collection abutting the anterolateral above body of the left of mandible, source of which is unclear. Few small nonspecific bilateral cervical lymph nodes the largest a 2 in the left submandibular region as described Minor mucosal thickening left chamber sphenoid sinus.
[2017-06-09 16:52] LABS: VENOUS BLOOD GAS BASE EXCESS 1.9 mmol/L (0.0-2.0); VENOUS BLOOD GAS PO2 107 mm/Hg (30-55); VENOUS BLOOD PH 7.33 (7.32-7.43)
[2017-06-09] MEDS ORDERED: Influenza Vaccine 60 mcg/0.5 mL SYR (4YR UP) IM ONE (22:06)
[2017-06-09] MEDS ORDERED: Pneumococcal 23-Valent Vaccine IM ONE (22:06)
--- NOTE | 2017-06-09 22:20 | CARD ---
APPROVED REPORT EKG Measurement Heart [id number] <Conclusion> Sinus tachycardia Otherwise normal ECG
[2017-06-09] MEDS ORDERED: Oxycodone/Acetaminophen 5/325 mg Tab PO ONE (22:32)
--- NOTE | 2017-06-10 06:11 | CP.PCM.PN ---
Subjective - Date & Time of Evaluation Date of Evaluation: 06/10/17 Time of Evaluation: 06:09 - Subjective Subjective: S:Earlier , percocet was ordered for back pain. Pertinent medical record was reviewed. Went to see patient. She is asleep now. O: Last Vital Signs 3 Temp 98.2 F 06/10/17 00:00 Pulse 86 06/10/17 00:00 Resp 20 06/10/17 00:00 BP 98/58 L 06/10/17 00:00 Pulse Ox 95 06/10/17 00:00 Asleep , comfortable. LUNGS: Normal breathing pattern. A: Back pain. P: Percocet was given. Objective - Vital Signs/Intake and Output Vital Signs (last 24 hours): Temp Pulse Resp BP Pulse Ox 98.2 F 86 20 98/58 L 95 06/10/17 00:00 06/10/17 00:00 06/10/17 00:00 06/10/17 00:00 06/10/17 00:00
[2017-06-10] MEDS ORDERED: Oxycodone/Acetaminophen 5/325 mg Tab PO ONE (10:51)
--- NOTE | 2017-06-10 12:05 | CP.PCM.CON ---
History of Present Illness - History of Present Illness History of Present Illness: 61 year old female with PMH of COPD, migraine, history of esophageal surgery, history of diverticulitis, anxiety, S/P came in to [facility] [place] complaining of pain on the right side of jaw for about 3 days, associated with swelling and pain in the lower teeth. She noted subjective fever and chills as well. She has some cough but minimal phlegm, no sore throat, no rhinorrhea, no body aches, no headache, no dizziness, no chest pain, no SOB, no abdominal pain, no diarrhea, no dysuria. In the ED, CT neck showed mandibular abscess on the right. Infectious Diseases consult is requested to further evaluate and manage. Review of Systems - Review of Systems All systems: reviewed and no additional remarkable complaints except (as per HPI ) Past Patient History - Infectious Disease Hx of Infectious Diseases: None - Tetanus Immunizations Tetanus Immunization: Unknown - Past Medical History & Family History Past Medical History?: Yes - Past Social History Smoking Status: Former Smoker - CARDIAC Hx Cardiac Disorders: Yes Hx Hypertension: Yes Hx Mitral Valve Prolapse: Yes Hx Peripheral Edema: Yes (at times none now) - PULMONARY Hx Asthma: Yes Hx Bronchitis: Yes Hx Chronic Obstructive Pulmonary Disease (COPD): Yes - NEUROLOGICAL Hx Neurological Disorder: Yes Hx Dizziness: Yes Hx Migraine: Yes - HEENT Hx HEENT Problems: Yes Other/Comment: left facial swelling, pt removed bottom denturs were rubbing against gums before swelling started - RENAL Hx Chronic Kidney Disease: No - ENDOCRINE/METABOLIC Hx Endocrine Disorders: No - HEMATOLOGICAL/ONCOLOGICAL Hx Blood Disorders: No - INTEGUMENTARY Hx Dermatological Problems: No Other/Comment: generalized dry skin - MUSCULOSKELETAL/RHEUMATOLOGICAL Hx Falls: (pt denies falls able to "catch self") - GASTROINTESTINAL Hx Gastrointestinal Disorders: Yes Hx Diverticulitis: Yes - GENITOURINARY/GYNECOLOGICAL Hx Genitourinary Disorders: Yes (c section x 1) - PSYCHIATRIC Hx Substance Use: No - SURGICAL HISTORY Other/Comment: sX ON ESOPHAGUS & STOMACH -large scarring to mid back. - ANESTHESIA Hx Anesthesia: Yes Hx Anesthesia Reactions: No Hx Malignant Hyperthermia: No Meds Allergies/Adverse Reactions: Allergies Allergy/AdvReac Type Severity Reaction Status Date / Time No Known Allergies Allergy Verified 05/22/17 18:38 - Medications Medications: Current Medications Ampicillin Sodium/Sulbactam (Sodium 3 gm/ Sodium Chloride) 100 mls @ 200 mls/ hr IVPB Q6 ANGELA PRN Reason: Protocol Physical Exam - Constitutional Appears: Non-toxic, No Acute Distress - Head Exam Head Exam: NORMAL INSPECTION - ENT Exam Additional comments: swelling on the right jaw area, poor dentition of the lower teeth - Neck Exam Neck exam: Negative for: Meningismus - Respiratory Exam Respiratory Exam: Decreased Breath Sounds - Cardiovascular Exam Cardiovascular Exam: +S1, +S2 - GI/Abdominal Exam GI & Abdominal Exam: Soft. absent: Tenderness Results - Vital Signs Recent Vital Signs: Last Vital Signs Temp 98.2 F 06/10/17 00:00 Pulse 86 06/10/17 00:00 Resp 20 06/10/17 00:00 BP 98/58 L 06/10/17 00:00 Pulse Ox 95 06/10/17 00:00 - Labs Result Diagrams: 06/09/17 13:00 06/09/17 13:00 Assessment & Plan - Assessment and Plan (Free Text) Plan: Assessment Sepsis due to right mandibular abscess COPD migraine history of esophageal surgery history of diverticulitis anxiety S/P Plan Started the patient on Unasyn pending blood cx; follow up ENT evaluation patient will need dentist evaluation and intervention will monitor clinically
[2017-06-10] MEDS ORDERED: oxyCODONE 20 mg ER Tab (oxyCONTIN) PO PRN (14:20)
[2017-06-10] MEDS ORDERED: oxyCODONE 20 mg Immediate Release Tab PO PRN (14:34)
[2017-06-10] MEDS: POLYETHYLENE GLYCOL 3350 17 GM/Dose PACKET PO SCH (14:52)
[2017-06-10] MEDS: Tiotropium 18 mcg Cap For Inhalation IH SCH (14:52)
[2017-06-10] MEDS: Oxycodone/Acetaminophen 10/325 mg Tab PO PRN (17:34)
[2017-06-10] MEDS: Arformoterol 15 mcg/2 ml Inh Sol IH SCH (19:54)
[2017-06-10] MEDS: Budesonide 0.5 mg/2 ml Inhal Susp UD IH SCH (19:54)
[2017-06-10] MEDS ORDERED: Arformoterol 15 mcg/2 ml Inh Sol IH SCH ×2 (20:00)
--- NOTE | 2017-06-10 21:57 | HP ---
06/10/2017 HISTORY OF PRESENT ILLNESS: Ms. Veliz is a 61-year-old female admitted to the hospital with history of left lower face swelling and tenderness. She also experienced shortness of breath and cough. Chest x-ray did not show any infiltrate in the ED. CT of the neck revealed infiltration induration of the soft tissue along the anterior margin of the mandible, small abscess collection on the buccal surface measuring 1.8 cm, bilateral cervical lymphadenopathy. Chest x-ray, no infiltrate. PAST MEDICAL HISTORY: COPD, hypertension, dizziness, migraines, chronic back pain, herniated disk, anxiety. PAST SURGICAL HISTORY: . FAMILY HISTORY: Noncontributory. PERSONAL HISTORY: Former smoker. History of substance abuse none. ALLERGIES: No known drug allergies. HOME MEDICATIONS: Metoprolol 50 mg p.o. b.i.d., Diovan 320 mg p.o. daily, Norvasc 10 mg daily, lorazepam 0.5 mg p.r.n. REVIEW OF SYSTEMS: As per HPI. Rest of the 12-point review of systems reviewed and negative. PHYSICAL EXAMINATION: GENERAL: Comfortable in bed, in no acute distress. VITAL SIGNS: Temperature 99.8, heart rate is 131 per minute, respiratory rate 18 per minute, blood pressure 101/71, pulse ox is 96% on room air. HEENT AND NECK: Swelling on the left side of the neck. CHEST: Air entry present and equal bilateral. No added sounds. CARDIOVASCULAR: S1 and S2 normal. No murmur. No gallop. ABDOMEN: Soft, nontender. No hepatosplenomegaly. EXTREMITIES: No edema. CENTRAL NERVOUS SYSTEM: Alert and oriented x3. No focal sensory or motor deficit. SKIN: No petechiae, no rash. LABORATORY DATA: White count 11.9, hemoglobin 11.8, hematocrit 36.4, platelet 159. Sodium 135, potassium 4.4, BUN 14, creatinine 1, glucose 159. ASSESSMENT: 1. Left submandibular abscess. 2. Leukocytosis, anemia. 3. Hypertension. 4. Chronic obstructive pulmonary disease. PLAN: She will be admitted to the hospital. IV antibiotics, Augmentin 3 g q.6 hours started IV. ID consultation Dr. Henderson requested. Continue metoprolol 50 mg p.o. b.i.d. We will continue Pulmicort and Brovana. Continue Norvasc 10 mg daily, Nicoderm patch, oxycodone 20 mg q.12 hours p.r.n., Percocet p.r.n., Spiriva and Diovan 320 mg p.o. daily. Blood count shows leukocytosis, likely related to infection. She also has mild anemia 11.8, we will continue to monitor blood count. Electrolytes normal. Renal function within normal limits. Abbey Martinez MD REBECCA
--- NOTE | 2017-06-10 22:05 | CON ---
DATE: This is a pulmonary consultation. HISTORY OF PRESENT ILLNESS: Katherine Veliz is a 61-year-old woman who sees me in the office. She was hospitalized in the recent past for COPD, congestive heart failure and the flu. The patient was seen in the office with a newly moderately elevated right ventricular systolic pressure of 50 mmHg. The case was discussed at length with Dr. Alvin King, her marine engineering professor. Arrangements were made for a repeat echocardiogram and right heart catheterization which is pending at this time. The patient has diagnosis of pulmonary arterial hypertension and will require medications. Unfortunately, this testing is required in order to obtain medications. The patient was admitted to [facility] yesterday with a infection of her jaw, Dr. Henderson has been called to see her for further evaluation. The patient has no respiratory complaints at this time other than her usual minimal cough and expectoration. She is not short of breath at rest. She yet does get short of breath on further exercise but she is doing better at this time. PAST MEDICAL HISTORY: Includes severe back pain for which she takes opiates on a chronic nature. She has coronary artery disease. There is neurologic disorder and back pain as described above. ALLERGIES: SHE HAS NO KNOWN ALLERGIES. HOME MEDICATIONS: Include metoprolol, Diovan, Norvasc, Ativan, Anoro and QVAR. She remains compliant with this medication. The opiates are not mentioned on this report. FAMILY HISTORY: Noncontributory. SOCIAL HISTORY: Former smoker. No occupational exposures. No travel history. REVIEW OF SYSTEMS: Essentially negative other than continued back pain, intermittent cough. No wheezing. No additional problems. She had dental problems of late, which she did not seek dental help. Now, she has probable osteomyelitis of the jaw, on antibiotics. All other systems negative. PHYSICAL EXAMINATION: GENERAL: Katherine is comfortable at rest, in no acute distress. VITAL SIGNS: Her heart rate is 90, respiratory rate IS 16, blood pressure 110/70, pulse ox 97% on supplemental oxygen, T-max 99.8. HEENT: Normocephalic, atraumatic. Swelling of the jaw. NECK: Supple. No JVD. No lymphadenopathy. No additional problems noted. CARDIOVASCULAR: S1 and S2; S3 is noted. No additional abnormalities noted. CHEST: Global decrease in breath sound, increased AP diameter, prolonged expiratory phase. No rales, rhonchi or wheezing today. ABDOMEN: Soft. Bowel sounds normoactive without mass, guarding, rebound or organomegaly. MUSCULOSKELETAL: The patient has pain on palpation of the thoracic and lumbar spine. EXTREMITIES: Reveal no clubbing, cyanosis or edema or Homans' sign. Additionally, there is no lymphadenopathy noted throughout. PSYCHIATRIC: Awake, alert, oriented. SKIN: Dry; intact. No rashes LABORATORY STUDIES: Have been reviewed. White count is 11,900, hemoglobin 11.8, platelet count 159. Sedimentation rate 69. Blood gas done which was not arterial, pH 7.40, pCO2 of 51. Chemistries show chloride of 96, glucose of 149. C-reactive protein greater than 15. Chest x-ray, no acute pulmonary infiltrates, cardiomegaly. EKG, sinus rhythm, nonspecific ST-T wave changes. CLINICAL IMPRESSION: 1. Chronic obstructive pulmonary disease. 2. Osteomyelitis of the jaw. 3. Pulmonary arterial hypertension. 4. Chronic back pain, on chronic opioid use. PLAN: Continue bronchodilators as at home at this time in the hospital. We will discuss with Cardiology to make sure that the right heart catheterization is completed, so that PAH medication can be commenced. No additional intervention at this time is required. Supplemental oxygen ordered. Redd Campuzano MD MTDLesli
[2017-06-11] MEDS: Arformoterol 15 mcg/2 ml Inh Sol IH SCH ×2 (07:41→20:17)
[2017-06-11] MEDS: Budesonide 0.5 mg/2 ml Inhal Susp UD IH SCH ×2 (07:41→20:17)
[2017-06-11 08:05] VITALS: RESP 18
[2017-06-11] MEDS: Tiotropium 18 mcg Cap For Inhalation IH SCH (10:21)
[2017-06-11] MEDS: POLYETHYLENE GLYCOL 3350 17 GM/Dose PACKET PO SCH (10:21)
[2017-06-11] MEDS: Oxycodone/Acetaminophen 10/325 mg Tab PO PRN ×2 (12:21→18:18)
--- NOTE | 2017-06-11 12:50 | CP.PCM.PN ---
Subjective - Date & Time of Evaluation Date of Evaluation: 06/11/17 Time of Evaluation: 11:50 - Subjective Subjective: Patient is feeling a little better, no fevers, right jaw area still a little sore but a little better. Objective - Vital Signs/Intake and Output Vital Signs (last 24 hours): Temp Pulse Resp BP Pulse Ox 98.4 F 90 18 102/64 95 06/11/17 08:05 06/11/17 08:05 06/11/17 08:05 06/11/17 08:05 06/11/17 08:05 Intake and Output: 06/11/17 06/11/17 06:59 18:59 Intake Total 560 Balance 560 - Medications Medications: Current Medications Amlodipine Besylate (Norvasc) 10 mg PO DAILY [facility] Last Admin: 06/10/17 10:28 Dose: Not Given Arformoterol Tartrate (Brovana) 15 mcg IH [id number] [facility] Last Admin: 06/11/17 07:41 Dose: 15 mcg Budesonide (Pulmicort Respules) 0.5 mg IH BIDRESP [facility] Last Admin: 06/11/17 07:41 Dose: 0.5 mg Docusate Sodium (Colace) 100 mg PO DAILY [facility] Ampicillin Sodium/Sulbactam (Sodium 3 gm/ Sodium Chloride) 100 mls @ 200 mls/ hr IVPB Q6 [facility] PRN Reason: Protocol Last Admin: 06/11/17 06:13 Dose: 200 mls/hr Metoprolol Tartrate (Lopressor) 50 mg PO BID [facility] Last Admin: 06/10/17 17:35 Dose: 50 mg Nicotine (Nicoderm Cq) 1 patch TD DAILY [facility] Oxycodone HCl (Oxycodone Immediate Release Tab) 20 mg PO Q12 PRN PRN Reason: Pain, severe (8-10) Oxycodone/Acetaminophen (Percocet 10/325 Mg Tab) 1 tab PO Q6H PRN PRN Reason: Pain, moderate (4-7) Last Admin: 06/10/17 17:34 Dose: 1 tab Polyethylene Glycol (Miralax) 17 gm PO DAILY [facility] Last Admin: 06/10/17 14:52 Dose: 17 gm Tiotropium [place] (Spiriva) 18 mcg IH DAILY [facility] Last Admin: 06/10/17 14:52 Dose: 18 mcg Valsartan (Diovan) 320 mg PO DAILY [facility] Last Admin: 06/10/17 10:27 Dose: Not Given - Constitutional Appears: Non-toxic - Head Exam Head Exam: NORMAL INSPECTION - ENT Exam ENT Exam: Mucous Membranes Moist - Neck Exam Neck Exam: absent: Meningismus - Respiratory Exam Respiratory Exam: Decreased Breath Sounds - Cardiovascular Exam Cardiovascular Exam: +S1, +S2 - GI/Abdominal Exam GI & Abdominal Exam: Soft. absent: Tenderness Assessment and Plan - Assessment and Plan (Free Text) Plan: Assessment Sepsis due to right mandibular abscess COPD migraine history of esophageal surgery history of diverticulitis anxiety S/P Plan continue Unasyn day 2 pending final blood cx; follow up ENT evaluation patient will need dentist evaluation and intervention will continue to monitor clinically
[2017-06-11 16:55] VITALS: TEMP 98.2; O2SAT 97
--- NOTE | 2017-06-11 17:56 | CP.PCM.PN ---
Subjective - Date & Time of Evaluation Date of Evaluation: 06/11/17 Time of Evaluation: 11:00 - Subjective Subjective: 06/11/2017 SUBJECTIVE : Ms. Veliz is a 61-year-old female admitted to the hospital with history of left lower face swelling and tenderness. She also experienced shortness of breath and cough. Chest x-ray did not show any infiltrate in the ED. CT of the neck revealed infiltration induration of the soft tissue along the anterior margin of the mandible, small abscess collection on the buccal surface measuring 1.8 cm, bilateral cervical lymphadenopathy. Chest x-ray, no infiltrate. Pain left side of neck decrease. PAST MEDICAL HISTORY: COPD, hypertension, dizziness, migraines, chronic back pain, herniated disk, anxiety. PAST SURGICAL HISTORY: . FAMILY HISTORY: Noncontributory. PERSONAL HISTORY: Former smoker. History of substance abuse none. ALLERGIES: No known drug allergies. HOME MEDICATIONS: reviewed. REVIEW OF SYSTEMS: As per HPI. Rest of the 12-point review of systems reviewed and negative. PHYSICAL EXAMINATION: GENERAL: Comfortable in bed, in no acute distress. VITAL SIGNS: reviewed. HEENT AND NECK: Swelling on the left side of the neck. CHEST: Air entry present and equal bilateral. No added sounds. CARDIOVASCULAR: S1 and S2 normal. No murmur. No gallop. ABDOMEN: Soft, nontender. No hepatosplenomegaly. EXTREMITIES: No edema. CENTRAL NERVOUS SYSTEM: Alert and oriented x3. No focal sensory or motor deficit. SKIN: No petechiae, no rash. LABORATORY DATA: reviewed. ASSESSMENT: 1. Left submandibular abscess. 2. Leukocytosis, anemia. 3. Hypertension. 4. Chronic obstructive pulmonary disease. PLAN: IV antibiotics, Augmentin 3 g q.6 hours started IV. ID consultation Dr. Henderson appreciated. Continue metoprolol 50 mg p.o. b.i.d. We will continue Pulmicort and Brovana. Continue Norvasc 10 mg daily, Nicoderm patch, oxycodone 20 mg q.12 hours p.r.n., Percocet p.r.n., Spiriva and Diovan 320 mg p.o. daily. Blood count shows leukocytosis, likely related to infection. She also has mild anemia 11.8, we will continue to monitor blood count. Electrolytes normal. Renal function within normal limits. Pain swelling left side of neck decreased. Encouraged ambulation. DVT prophylaxis lovenox 30 qdaily. Abbey Martinez MD Objective - Vital Signs/Intake and Output Vital Signs (last 24 hours): Temp Pulse Resp BP Pulse Ox 98.2 F 70 18 99/58 L 97 06/11/17 16:00 06/11/17 16:00 06/11/17 16:00 06/11/17 16:00 06/11/17 16:00 Intake and Output: 06/11/17 06/11/17 06:59 18:59 Intake Total 560 825 Balance 560 825 - Medications Medications: Current Medications Amlodipine Besylate (Norvasc) 10 mg PO DAILY [facility] Last Admin: 06/11/17 10:22 Dose: 10 mg Arformoterol Tartrate (Brovana) 15 mcg IH [id number] [facility] Last Admin: 06/11/17 07:41 Dose: 15 mcg Budesonide (Pulmicort Respules) 0.5 mg IH BIDRESP [facility] Last Admin: 06/11/17 07:41 Dose: 0.5 mg Docusate Sodium (Colace) 100 mg PO DAILY [facility] Last Admin: 06/11/17 10:22 Dose: 100 mg Ampicillin Sodium/Sulbactam (Sodium 3 gm/ Sodium Chloride) 100 mls @ 200 mls/ hr IVPB Q6 [facility] PRN Reason: Protocol Last Admin: 06/11/17 17:23 Dose: 200 mls/hr Metoprolol Tartrate (Lopressor) 50 mg PO BID [facility] Last Admin: 06/11/17 10:22 Dose: 50 mg Nicotine (Nicoderm Cq) 1 patch TD DAILY [facility] Last Admin: 06/11/17 10:21 Dose: 1 patch Oxycodone HCl (Oxycodone Immediate Release Tab) 20 mg PO Q12 PRN PRN Reason: Pain, severe (8-10) Oxycodone/Acetaminophen (Percocet 10/325 Mg Tab) 1 tab PO Q6H PRN PRN Reason: Pain, moderate (4-7) Last Admin: 06/11/17 12:21 Dose: 1 tab Polyethylene Glycol (Miralax) 17 gm PO DAILY [facility] Last Admin: 06/11/17 10:21 Dose: 17 gm Tiotropium [place] (Spiriva) 18 mcg IH DAILY [facility] Last Admin: 06/11/17 10:21 Dose: 18 mcg Valsartan (Diovan) 320 mg PO DAILY [facility] Last Admin: 06/11/17 10:21 Dose: 320 mg
[2017-06-12] MEDS: Oxycodone/Acetaminophen 10/325 mg Tab PO PRN ×2 (03:32→09:43)
[2017-06-12 07:12] LABS: BASO # 0.02 K/mm3 (0.0-2.0); BASO % 0.4 % (0.0-3.0); EOS # 0.1 (0.0-0.7); EOS % 2.4 % (1.5-5.0); GRAN # 2.15 (1.4-6.5); GRAN % 42.3 % (50.0-68.0); HEMOGLOBIN 10.3 g/dL (12.0-16.0); LYMPH # 2.1 (1.2-3.4); LYMPH % 41.3 % (22.0-35.0); MEAN CELL VOLUME 87.1 fl (80.0-105.0); MEAN CORPUSCULAR HEMOGLOBIN 27.7 pg (25.0-35.0); MEAN CORPUSCULAR HGB CONC 31.8 g/dl (31.0-37.0); MONO # 0.7 (0.1-0.6); MONO % 13.6 % (1.0-6.0); RBC 3.72 10^6/uL (3.5-6.1); RED CELL DISTRIBUTION WIDTH 13.2 % (11.5-14.5); WHITE BLOOD COUNT 5.1 10^3/ul (4.5-11.0)
[2017-06-12 07:26] LABS: BLOOD UREA NITROGEN 4 mg/dL (7-21); CALCIUM 9.2 mg/dL (8.4-10.5); GFR AFRICAN-AMERICAN > 60; GFR NON-AFRICAN AMERICAN > 60
[2017-06-12] MEDS: Budesonide 0.5 mg/2 ml Inhal Susp UD IH SCH (07:33)
[2017-06-12] MEDS: Arformoterol 15 mcg/2 ml Inh Sol IH SCH (07:33)
--- NOTE | 2017-06-12 08:46 | PN ---
DATE: 06/12/2017 PULMONARY NOTE SUBJECTIVE: The patient appears comfortable this morning. She is not short of breath at rest. PHYSICAL EXAMINATION VITAL SIGNS: (Last noted in the computer): Temperature is 98.2, pulse is 84, respirations 18, blood pressure 94/65. Oxygen saturation on room air is 97%. HEENT: Positive mild swelling in the left mandibular area. No JVD. CARDIOVASCULAR: Systolic ejection murmur at the lower left sternal border. No S3 gallop. LUNGS: Decreased breath sounds at the bases. Minimal rhonchi. No wheezing. EXTREMITIES: No clubbing, cyanosis or edema. Calves are nontender to palpation. GI: Abdomen is soft, nontender and nondistended. Bowel sounds are positive. SKIN: No acute rash. NEUROLOGIC: Limited at the present time. IMPRESSION: 1. Left submandibular abscess. 2. Advanced chronic obstructive pulmonary disease. 3. Asthma. 4. Pulmonary hypertension. PLAN: The patient appears comfortable this morning. She is not short of breath at rest. She does state to feeling much better overall. On physical exam, no significant bronchospasm is noted. In addition, the oxygen saturation on room air is 97%. I will continue with the current pulmonary medications for now. I did review the note by Dr. Campuzano - who follows the patient closely as an outpatient. We are awaiting additional testing - to qualify the patient for her pulmonary hypertensive medication. Clinical status of the patient appears significantly improved. I would continue with the antibiotic coverage as per Infectious Disease. The patient does state this morning that she is feeling much better, and that her mandibular swelling has decreased significantly. I will discuss the above with the attending physician. Mono Bronson MD REBECCA
[2017-06-12] MEDS: Tiotropium 18 mcg Cap For Inhalation IH SCH (09:45)
[2017-06-12] MEDS: POLYETHYLENE GLYCOL 3350 17 GM/Dose PACKET PO SCH (09:46)
[2017-06-12 09:51] VITALS: BP 125/78; PULSE 98
--- NOTE | 2017-06-12 12:14 | CP.PCM.PN ---
Subjective - Date & Time of Evaluation Date of Evaluation: 06/12/17 Time of Evaluation: 09:45 - Subjective Subjective: Feeling better, no fevers, not in distress, afebrile, much improved pain in the right jaw area. Objective - Vital Signs/Intake and Output Vital Signs (last 24 hours): Temp Pulse Resp BP Pulse Ox 98.2 F 84 18 94/65 L 97 06/11/17 16:00 06/11/17 18:17 06/11/17 16:00 06/11/17 18:17 06/11/17 16:00 Intake and Output: 06/12/17 06/12/17 06:59 18:59 Intake Total 940 120 Balance 940 120 - Medications Medications: Current Medications Amlodipine Besylate (Norvasc) 10 mg PO DAILY [facility] Last Admin: 06/11/17 10:22 Dose: 10 mg Arformoterol Tartrate (Brovana) 15 mcg IH [id number] [facility] Last Admin: 06/12/17 07:33 Dose: 15 mcg Budesonide (Pulmicort Respules) 0.5 mg IH BIDRESP [facility] Last Admin: 06/12/17 07:33 Dose: 0.5 mg Docusate Sodium (Colace) 100 mg PO DAILY [facility] Last Admin: 06/11/17 10:22 Dose: 100 mg Ampicillin Sodium/Sulbactam (Sodium 3 gm/ Sodium Chloride) 100 mls @ 200 mls/ hr IVPB Q6 [facility] PRN Reason: Protocol Last Admin: 06/12/17 06:35 Dose: 200 mls/hr Metoprolol Tartrate (Lopressor) 50 mg PO BID [facility] Last Admin: 06/11/17 18:17 Dose: Not Given Nicotine (Nicoderm Cq) 1 patch TD DAILY [facility] Last Admin: 06/11/17 10:21 Dose: 1 patch Oxycodone HCl (Oxycodone Immediate Release Tab) 20 mg PO Q12 PRN PRN Reason: Pain, severe (8-10) Oxycodone/Acetaminophen (Percocet 10/325 Mg Tab) 1 tab PO Q6H PRN PRN Reason: Pain, moderate (4-7) Last Admin: 06/12/17 03:32 Dose: 1 tab Polyethylene Glycol (Miralax) 17 gm PO DAILY [facility] Last Admin: 06/11/17 10:21 Dose: 17 gm Tiotropium [place] (Spiriva) 18 mcg IH DAILY [facility] Last Admin: 06/11/17 10:21 Dose: 18 mcg Valsartan (Diovan) 320 mg PO DAILY [facility] Last Admin: 06/11/17 10:21 Dose: 320 mg - Labs Labs: 06/12/17 06:30 06/12/17 06:30 - Constitutional Appears: Non-toxic, Chronically Ill - Head Exam Head Exam: NORMAL INSPECTION - ENT Exam ENT Exam: Mucous Membranes Moist Additional comments: decreased swelling on the right jaw area and improved tenderness - Respiratory Exam Respiratory Exam: Decreased Breath Sounds - Cardiovascular Exam Cardiovascular Exam: +S1, +S2 - GI/Abdominal Exam GI & Abdominal Exam: Soft. absent: Tenderness Assessment and Plan - Assessment and Plan (Free Text) Plan: Assessment Sepsis due to right mandibular abscess (soft tissue area) COPD migraine history of esophageal surgery history of diverticulitis anxiety S/P Plan on Unasyn day 3 - can switch to PO Augmentin for another 7 days, with outpatient follow up with a dentist discussed with Dr. Flynn
--- NOTE | 2017-06-12 13:23 | CP.PCM.PN ---
Subjective - Date & Time of Evaluation Date of Evaluation: 06/12/17 Time of Evaluation: 12:30 - Subjective Subjective: The patient was seen and examined. She has improved. Decreased pain. Denies trismus. Objective - Vital Signs/Intake and Output Vital Signs (last 24 hours): Temp Pulse Resp BP Pulse Ox 98.2 F 98 H 18 125/78 97 06/11/17 16:00 06/12/17 09:42 06/11/17 16:00 06/12/17 09:42 06/11/17 16:00 Intake and Output: 06/12/17 06/12/17 06:59 18:59 Intake Total 940 120 Balance 940 120 - Medications Medications: Current Medications Amlodipine Besylate (Norvasc) 10 mg PO DAILY [facility] Last Admin: 06/12/17 09:42 Dose: 10 mg Arformoterol Tartrate (Brovana) 15 mcg IH [id number] [facility] Last Admin: 06/12/17 07:33 Dose: 15 mcg Budesonide (Pulmicort Respules) 0.5 mg IH BIDRESP [facility] Last Admin: 06/12/17 07:33 Dose: 0.5 mg Docusate Sodium (Colace) 100 mg PO DAILY [facility] Last Admin: 06/12/17 09:43 Dose: 100 mg Ampicillin Sodium/Sulbactam (Sodium 3 gm/ Sodium Chloride) 100 mls @ 200 mls/ hr IVPB Q6 [facility] PRN Reason: Protocol Last Admin: 06/12/17 06:35 Dose: 200 mls/hr Metoprolol Tartrate (Lopressor) 50 mg PO BID [facility] Last Admin: 06/12/17 09:42 Dose: 50 mg Nicotine (Nicoderm Cq) 1 patch TD DAILY [facility] Last Admin: 06/12/17 09:45 Dose: 1 patch Oxycodone HCl (Oxycodone Immediate Release Tab) 20 mg PO Q12 PRN PRN Reason: Pain, severe (8-10) Oxycodone/Acetaminophen (Percocet 10/325 Mg Tab) 1 tab PO Q6H PRN PRN Reason: Pain, moderate (4-7) Last Admin: 06/12/17 09:43 Dose: 1 tab Polyethylene Glycol (Miralax) 17 gm PO DAILY [facility] Last Admin: 06/12/17 09:46 Dose: 17 gm Tiotropium [place] (Spiriva) 18 mcg IH DAILY [facility] Last Admin: 06/12/17 09:45 Dose: 18 mcg Valsartan (Diovan) 320 mg PO DAILY [facility] Last Admin: 06/12/17 09:42 Dose: 320 mg - Labs Labs: 06/12/17 06:30 06/12/17 06:30 - Constitutional Appears: Well, Non-toxic, No Acute Distress - Head Exam Head Exam: ATRAUMATIC, NORMAL INSPECTION, NORMOCEPHALIC - Eye Exam Eye Exam: EOMI, Normal appearance, PERRL Pupil Exam: NORMAL ACCOMODATION - ENT Exam ENT Exam: Mucous Membranes Moist Additional comments: left mandibular region mild erythema and tenderness with palpation, no fluctuance. No purulence. - Neck Exam Neck Exam: Full ROM. absent: Lymphadenopathy, Meningismus, Normal Inspection, Tenderness, Thyromegaly - Respiratory Exam Respiratory Exam: NORMAL BREATHING PATTERN Assessment and Plan - Assessment and Plan (Free Text) Assessment: -Left mandibular cellulitis/abscess -Mouth pain -Leukocytosis Plan: -continue with out-patient antibiotics -f/u with dental for possible root extraction -f/u with ENT
--- NOTE | 2017-06-13 07:01 | DS ---
HISTORY OF PRESENT ILLNESS: This is a 61-year-old female who was coming into the hospital and was found to have cellulitis in her face. The patient was seen by ID. The patient was placed on IV antibiotics. She did have CT of the neck that showed a soft tissue swelling near the mandible with a small abscess that was 1.8 cm. She was seen by ENT. She was going to be followed up by dentist. No headache. No dizziness. No nausea. PHYSICAL EXAMINATION: VITAL SIGNS: Temperature is 98.2, pulse is 70, blood pressure is 99/58, respirations 18. GENERAL: The patient is lying in bed, flat, comfortable. HEENT: No oral lesion. Anicteric sclerae. Moist mucosa. NECK: No JVD, adenopathy, or thyromegaly. CARDIOVASCULAR: S1 and S2, regular. No murmurs, rubs, or gallops. LUNGS: Clear to auscultation bilaterally. No wheeze, rales, or rhonchi. ABDOMEN: Bowel sounds are positive, soft, nontender and nondistended. EXTREMITIES: No cyanosis, clubbing or edema. ASSESSMENT: 1. Left submandibular abscess. 2. Hypertension. 3. Chronic obstructive pulmonary disease. PLAN: The patient is currently admitted to the hospital. She is comfortable. Her cellulitis has improved. The patient is going to be discharged on Augmentin. I did speak to Infectious Disease, Dr. Amaro to clear the patient to be discharged. Patient is on oxycodone for pain. She is going to continue her amlodipine for hypertension. She is on Diovan. DISCHARGE INSTRUCTIONS: Patient was going to be followed up by Dr. Schneider as an outpatient. She was advised to return to the hospital if her conditions worsens and to finish her antibiotics. CONDITION: Stable. ACTIVITY: Increase as tolerated. Andrew Osuna MD
--- NOTE | 2017-06-13 17:29 | PQF SEPSIS ---
06/13/17 Dr. Osuna, ID physician documents "sepsis due to right mandibular abscess" on his consult and progress notes. Do you agree, disagree, undetermined with sepsis for this patient? If you agree, was sepsis present on admission? Thank you. No sepsis. Clarification of your documentation is requested to better reflect the severity of illness and intensity of treatment of your patient. Indicators present [] Temp < 96.8 or > 100.4 [] WBC count > 12,000/mm3 or <000/mm3 or 10% immature neutrophils [] Heart Rate > 90 [] Respiratory Rate > 20 [] Fever or hypothermia [] Chills [] Positive blood cultures [] Hypotension [] Metabolic acidosis (Elevated lactate level, anion gap or reduced blood pH) [] Acute confusion /Altered Mental Status [] Shock [] Other: [] Location in the medical record that reflects the above clinical findings: [] Treatment Provided: [] PHYSICIAN'S RESPONSE Based on your medical judgment of the clinical indicators outlined above, are you treating this patient for a known or suspected: [] Sepsis / Septicemia Please specify organism if known [] [] SIRS (Systemic Inflammatory Response Syndrome) [] Severe Sepsis (Sepsis with Associated Organ Dysfunction) [] Fever of Unknown Origin [] Other, please indicate: [] [] If Unable to Determine, please check the box, sign and date. Present On Admission (POA) Indicator: [] Present at the time of admission [] Not present at the time of admission [] Clinically Undetermined In responding to this query, please exercise your independent professional judgment. The fact that a question is asked does not imply that any particular answer is desired or expected. Thank you for your clarification on this documentation. If you have any questions please call:[ ] * Thank you, [ ] frog farmer REBECCA
== END 2017-06-12 16:27 | disposition home or self-care (01) | DRG 158 ==
LOC: ED 12:10 → ERH 16:58 → 3RSO 21:14
PROVIDERS: ADMIT Internal Medicine Nephrology; ATTEND Internal Medicine Nephrology
DX: K12.2 Cellulitis and abscess of mouth (principal); L03.211 Cellulitis of face; I27.21 Secondary pulmonary arterial hypertension; I50.9 Heart failure, unspecified; I11.0 Hypertensive heart disease with heart failure; M27.2 Inflammatory conditions of jaws; J44.9 Chronic obstructive pulmonary disease, unspecified; D64.9 Anemia, unspecified; F41.9 Anxiety disorder, unspecified; G43.909 Migraine, unspecified, not intractable, without status migrainosus; G89.29 Other chronic pain; I25.10 Atherosclerotic heart disease of native coronary artery without angina pectoris; I34.1 Nonrheumatic mitral (valve) prolapse; Z79.891 Long term (current) use of opiate analgesic; Z79.899 Other long term (current) drug therapy; Z87.891 Personal history of nicotine dependence; Z87.19 Personal history of other diseases of the digestive system

== ENCOUNTER 2017-06-23 07:36 | Day surgery (SDC) | payer OTHER ==
[2017-06-23] MEDS ORDERED: Lidocaine 2% Inj (20ml) ONE (07:44)
[2017-06-23] MEDS ORDERED: Midazolam 2 MG/2 ML VIAL ONE ×2 (07:44→08:26)
[2017-06-23] MEDS ORDERED: HEPARIN SODIUM/NS 2,000 ML IV ONE (07:45)
[2017-06-23 08:12] LABS: INR 0.96 (0.93-1.08); PARTIAL THROMBOPLASTIN TIME 31.8 Seconds (25.1-36.5)
[2017-06-23 08:28] VITALS: RESP 18
[2017-06-23] MEDS ORDERED: Sodium Chloride 0.9% 1,000 ML IV SCH (08:45)
[2017-06-23 09:24] VITALS: TEMP 97.6
[2017-06-23 10:53] VITALS: BP 118/74; PULSE 99; O2SAT 95
--- NOTE | 2017-06-23 14:05 | CARDCATH ---
PROCEDURE DATE: 06/23/2017 PROCEDURE: Right heart catheterization. INDICATION: Pulmonary hypertension. HISTORY: This is a 61-year-old woman with history of COPD and tobacco abuse who was noted to have increasing dyspnea. An echocardiogram suggested some degree of pulmonary hypertension and right heart catheterization was advised to document her right heart pressures. FINDINGS: HEMODYNAMICS: The RA pressure was 2. The RV pressure was 44/2 with a PA pressure of 48/15, pulmonary capillary wedge pressure was 12. The cardiac output by thermodilution method was 5.3 liters per minute with cardiac index of 3.3 liters per minute per meter square. CONCLUSION: [id number] pulmonary hypertension. RECOMMENDATIONS: Outpatient followup will be planned to coordinate further treatment plan with Dr. Campuzano and Dr. King. Costa Breaux MD cc: Awilda Dugan M.D.
== END 2017-06-23 11:40 | disposition home or self-care (01) ==
LOC: CATH 07:36
PROVIDERS: ATTEND Internal Medicine Cardiovascular Disease
DX: I27.20 Pulmonary hypertension, unspecified (principal); J44.9 Chronic obstructive pulmonary disease, unspecified
CPT/HCPCS: 36415; 85610; 85730; 86850; 86900; 93451; 99152; 99153; C1894; J1644; J2250; J3010; J7030; J7040

== ENCOUNTER 2018-04-16 01:57 | Observation (INO) | payer OTHER ==
[2018-04-16 01:58] VITALS: BMI 19.3
[2018-04-16] MEDS ORDERED: Morphine 2 mg/ml ISec IVP STA ×2 (02:18→07:10)
[2018-04-16] MEDS ORDERED: Sodium Chloride 0.9% 1,000 ML IV STA ×2 (02:18→05:28)
--- NOTE | 2018-04-16 02:18 | ED PDOC ---
Arrival/HPI - General Chief Complaint: Abdominal Pain Time Seen by Provider: 04/16/18 02:01 Historian: Patient - History of Present Illness Narrative History of Present Illness (Text): 04/16/18 02:15 62 year old female, with a past medical history of COPD and hypertension, presents to the Emergency department complaining of abdominal pain. Patient states she has been experiencing constant, upper abdominal pain for past 2 days, worsening tonight. Patient reports associated nausea and shortness of breath. Patient denies any fevers, chills, headache, dizziness, chest pain, vomiting, diarrhea, back pain, neck pain, urinary symptoms, or any other complaints. Patient denies any history of abdominal surgery. Time/Duration: Other (2 days) Symptom Onset: Gradual Symptom Course: Unchanged Activities at Onset: Light Context: Home Past Medical History - Provider Review Nursing Documentation Reviewed: Yes - Past History Past History: No Previous - Infectious Disease Hx of Infectious Diseases: None - Tetanus Immunization Tetanus Immunization: Unknown - Cardiac Hx Pacemaker: No - Pulmonary Hx Asthma: Yes Hx Bronchitis: Yes Hx Chronic Obstructive Pulmonary Disease (COPD): Yes - Neurological Hx Paralysis: No - HEENT Hx HEENT Disorder: Yes Other/Comment: left facial swelling, pt removed bottom denturs were rubbing against gums before swelling started - Renal Hx Renal Disorder: No - Endocrine/Metabolic Hx Endocrine Disorders: No - Hematological/Oncological Hx Blood Transfusions: No - Integumentary Hx Dermatological Disorder: No Other/Comment: generalized dry skin - Musculoskeletal/Rheumatological Hx Musculoskeletal Disorders: Yes - Gastrointestinal Hx Gastrointestinal Disorders: Yes Hx Diverticulitis: Yes - Genitourinary/Gynecological Hx Genitourinary Disorders: Yes (c section x 1) - Psychiatric Hx Emotional Abuse: No Hx Physical Abuse: No Hx Substance Use: No - Past Surgical History Past Surgical History: No Previous - Surgical History Other/Comment: sX ON ESOPHAGUS & STOMACH -large scarring to mid back. - Anesthesia Hx Anesthesia Reactions: No Hx Malignant Hyperthermia: No - Suicidal Assessment Feels Threatened In Home Enviroment: No Family/Social History - Physician Review Nursing Documentation Reviewed: Yes Family/Social History: Unknown Family HX Smoking Status: Former Smoker Hx Alcohol Use: No Hx Substance Use: No Hx Substance Use Treatment: No Allergies/Home Meds Allergies/Adverse Reactions: Allergies No Known Allergies Allergy (Verified 05/22/17 18:38) Home Medications: Home Meds Medication Instructions Recorded Confirmed Metoprolol Tartrate 50 mg PO BID 08/25/13 06/23/17 Valsartan [Diovan] 320 mg PO DAILY 02/02/16 06/23/17 amLODIPine [Norvasc] 10 mg PO DAILY 02/02/16 06/23/17 Oxycodone HCl/Acetaminophen 1 each PO Q4 PRN 06/09/17 06/23/17 [Percocet 10-325 mg Tablet] oxyCODONE [oxyCONTIN Extended 20 mg PO Q12 06/09/17 06/23/17 Release Tab] Review of Systems - Physician Review All systems were reviewed & negative as marked: Yes - Review of Systems Constitutional: absent: Fevers Respiratory: SOB. absent: Cough, Wheezing Cardiovascular: absent: Chest Pain Gastrointestinal: Abdominal Pain, Nausea Genitourinary Female: absent: Frequency, Hematuria, Urine Output Changes Musculoskeletal: absent: Back Pain, Neck Pain Skin: absent: Rash Neurological: absent: Headache, Dizziness Physical Exam Vital Signs Reviewed: Yes Temperature: Afebrile Blood Pressure: Normal Pulse: Regular Respiratory Rate: Normal Appearance: Positive for: Well-Appearing, Non-Toxic Pain Distress: None Mental Status: Positive for: Alert and Oriented X 3 - Systems Exam Head: Present: Atraumatic, Normocephalic Pupils: Present: PERRL Extroacular Muscles: Present: EOMI Conjunctiva: Present: Normal Mouth: Present: Moist Mucous Membranes Neck: Present: Normal Range of Motion Respiratory/Chest: Present: Clear to Auscultation, Good Air Exchange. No: Respiratory Distress, Accessory Muscle Use Cardiovascular: Present: Regular Rate and Rhythm, Normal S1, S2. No: Murmurs Abdomen: Present: Other (mid/upper abdominal tenderness). No: Distention, Peritoneal Signs Upper Extremity: Present: Normal Inspection. No: Cyanosis, Edema Lower Extremity: Present: Normal Inspection. No: Edema Neurological: Present: GCS=15, CN II-XII Intact, Speech Normal Skin: Present: Warm, Dry, Normal Color. No: Rashes Psychiatric: Present: Alert, Oriented x 3, Normal Insight, Normal Concentration Medical Decision Making ED Course and Treatment: 04/16/18 02:18 Impression: 62 year old female presents to the Emergency department complaining of abdominal pain for the past two days. Plan: -- CT Scan Abdomen & Pelvis -- EKG -- Labs -- Chest X-ray -- Morphine -- Pepcid -- IV Fluids -- Zofran -- Reassess and disposition Prior Visits: Notes and results from previous visits were reviewed. Progress Notes: 04/16/18 03:48 CXR reviewed, shows no acute processes. 04/16/18 04:03 Reviewed EKG, NSR at [address]-segment elevations or depressions, no T-wave inversions, normal intervals. 04/16/18 04:45 CT Abdomen and Pelvis: Moderate amount of fecal residue is noted in the large bowel suggestive of constipation. Fluid-filled small bowels. Unchanged aneurysmal infrarenal aorta measuring 3.7 cm in its largest transverse dimension. Mild amount of free pelvic fluid is noted. The liver is of uniform attenuation without mass or defect. There is no intra or extrahepatic biliary ductal dilatation. The spleen is normal. The gallbladder is within normal limits. The pancreas is of normal contour and attenuation characteristics. There is no evidence of adrenal mass. Both kidneys demonstrate prompt and equal nephrograms. The kidneys are normal in size, shape and configuration. There is no evidence of renal or ureteral mass. No renal or ureteral calculi are identified. There is no hydroureter or hydronephrosis. No evidence for appendicitis. There is no bowel wall thickening. No evidence for small or large bowel obstruction. There is no evidence of intrinsic or extrinsic bladder mass. Images of the lung bases show no evidence of pleural or parenchymal mass. There are no pleural effusions. The bony structures are free of lytic or blastic lesions. IMPRESSION: Moderate amount of fecal residue is noted in the large bowel suggestive of constipation. Fluid-filled small bowels. Ileus. Unchanged aneurysmal infrarenal aorta measuring 3.7 cm in its largest transverse dimension. Mild amount of free pelvic fluid is noted. Electronically signed on Apr 16, 2018 4:41:11 AM EST by: Maryana Loera M.D., Certified by ANDERS, MARIO, Neuroradiology 04/16/18 05:[address] Osuna, who is aware and agrees with plan. Accepts pt in to his service. Pt will go to [facility] observation for abdominal pain. - Lab Interpretations I have reviewed the lab results: Yes - RAD Interpretation New Home Sales Consultant: ED Physician, Radiologist - EKG Interpretation Interpreted by ED Physician: Yes Type: 12 lead EKG - Scribe Statement The provider has reviewed the documentation as recorded by the Scribe Dexter fish with Arabella All medical record entries made by the Rubaibe were at my direction and personally dictated by me. I have reviewed the chart and agree that the record accurately reflects my personal performance of the history, physical exam, medical decision making, and the department course for this patient. I have also personally directed, reviewed, and agree with the discharge instructions and disposition. Disposition/Present on Arrival - Present on Arrival Any Indicators Present on Arrival: No History of DVT/PE: No History of Uncontrolled Diabetes: No Urinary Catheter: No History of Decub. Ulcer: No History Surgical Site Infection Following: None - Disposition Have Diagnosis and Disposition been Completed?: Yes Diagnosis: Abdominal pain, Ileus, Constipation Disposition: HOSPITALIZED Disposition Time: 05:29 Condition: STABLE Forms: [employer] (Chilean)
[2018-04-16 03:11] LABS: ALB/GLOB RATIO 1.2 (1.1-1.8); ALBUMIN 4.2 g/dL (3.0-4.8); CALCIUM 9.7 mg/dL (8.4-10.5)
[2018-04-16 03:21] LABS: HEMOGLOBIN 11.8 g/dL (12.0-16.0); MEAN CORPUSCULAR HEMOGLOBIN 26.6 pg (25.0-35.0); MEAN PLATELET VOLUME 8.8 fl (7.0-11.0); RBC 4.43 10^6/uL (3.5-6.1); RED CELL DISTRIBUTION WIDTH 12.9 % (11.5-14.5); WHITE BLOOD COUNT 11.7 10^3/uL (4.5-11.0)
[2018-04-16] MEDS ORDERED: Iodixanol 320 MG/ML 100 ML BOTTLE IV ONE (03:21)
[2018-04-16] MEDS ORDERED: Morphine 2 mg/ml ISec ONE (06:57)
[2018-04-16] MEDS ORDERED: Oxycodone/Acetaminophen 10/325 mg Tab PO PRN (07:38)
[2018-04-16] MEDS ORDERED: Pneumococcal 23-Valent Vaccine IM ONE (07:58)
[2018-04-16] MEDS ORDERED: Influenza Vaccine 60 mcg/0.5 mL SYR (4YR UP) IM ONE (07:58)
[2018-04-16] MEDS ORDERED: Mineral Oil Enema 135 ml RC ONE (08:46)
--- NOTE | 2018-04-16 09:11 | RAD ---
Date of service: 04/16/2018 HISTORY: abdominal pain COMPARISON: No prior. FINDINGS: LUNGS: No active pulmonary disease. PLEURA: No significant pleural effusion identified, no pneumothorax apparent. CARDIOVASCULAR: Aortic calcification Normal cardiac size. No pulmonary vascular congestion. OSSEOUS STRUCTURES: No significant abnormalities. VISUALIZED UPPER ABDOMEN: Normal. OTHER FINDINGS: None. IMPRESSION: No active disease.
[2018-04-16] MEDS: oxyCODONE 20 mg ER Tab (oxyCONTIN) PO SCH ×2 (10:15→22:31)
[2018-04-16] MEDS: POLYETHYLENE GLYCOL 3350 17 GM/Dose PACKET PO SCH ×2 (10:16→18:00)
[2018-04-16] MEDS ORDERED: Peg-Electrolyte Oral Soln 4L (Golytely) PO ONE (11:29)
--- NOTE | 2018-04-16 13:53 | CT ---
Date of service: 04/16/2018 PROCEDURE: CT Abdomen and Pelvis with contrast HISTORY: abdominal pain COMPARISON: None. TECHNIQUE: Contrast dose: Radiation dose: Total exam DLP = 290.33 mGy-cm. This CT exam was performed using one or more of the following dose reduction techniques: Automated exposure control, adjustment of the mA and/or kV according to patient size, and/or use of iterative reconstruction technique. FINDINGS: LOWER THORAX: Linear fibrotic change. LIVER: Unremarkable. No gross lesion or ductal dilatation. GALLBLADDER AND BILE DUCTS: Unremarkable. PANCREAS: Unremarkable. No gross lesion or ductal dilatation. SPLEEN: Unremarkable. ADRENALS: Unremarkable. No mass. KIDNEYS AND URETERS: Unremarkable. No hydronephrosis. No solid mass. VASCULATURE: 3.2 centimeter infrarenal abdominal aortic aneurysm. Aortic calcifications. BOWEL: Unremarkable. No obstruction. No gross mural thickening. APPENDIX: Normal appendix. PERITONEUM: Small to moderate amount of free fluid in the pelvis. LYMPH NODES: Unremarkable. No enlarged lymph nodes. BLADDER: Unremarkable. REPRODUCTIVE: Unremarkable. BONES: No acute fracture. OTHER FINDINGS: None. IMPRESSION: 3.2 centimeter infrarenal abdominal aortic aneurysm.
--- NOTE | 2018-04-16 14:12 | CARD ---
APPROVED REPORT Date of service: 04/16/2018 EKG Measurement Heart [id number] <Conclusion> Normal sinus rhythm Normal ECG
--- NOTE | 2018-04-16 17:04 | CON ---
DATE: 04/16/2018 REQUESTING PHYSICIAN: Dr. Osuna. REASON FOR CONSULTATION: I have been asked to see this 62-year-old female with history of hypertension, COPD, chronic back pain, on opiates, who comes to the hospital for diffuse abdominal pain for two days. The patient admits to chronic constipation and occasional urinary retention when she is constipated. She admits to some nausea, but no vomiting. She denies any fevers, chills, chest pain, melena, rectal bleeding, or vomiting. CT scan of the abdomen and pelvis performed in the emergency room reveals increased feces throughout the colon with colon distention as well as fluid-filled small bowel. There is also some free fluid in the pelvis. No pelvic masses or adenopathy was seen. PAST MEDICAL HISTORY: Notable for COPD, asthmatic bronchitis, hypertension, diverticulitis. PAST SURGICAL HISTORY: Notable for . SOCIAL HISTORY: She is a former cigarette smoker, having quit years ago. She denies alcohol use. MEDICATIONS AT HOME: Include Diovan, amlodipine, metoprolol, Percocet and OxyContin. FAMILY HISTORY: Noncontributory. REVIEW OF SYSTEMS: A 14-point review of systems is notable for abdominal pain, nausea, constipation, urinary retention. PHYSICAL EXAMINATION; GENERAL: Middle-aged female, lying in bed, in no acute distress. VITAL SIGNS: Reveal temperature of 98.5, blood pressure 110/71, heart rate 97. HEENT: Reveals sclerae to be white. Conjunctivae pink. NECK: Supple. CHEST: Reveals lungs to be clear. HEART: Exam reveals regular rate and rhythm. ABDOMEN: Softly distended, nontender with slightly increased bowel sounds. EXTREMITIES: Show no edema. LABORATORY DATA: Reveals white blood cell count 11.7, hemoglobin 11.8. Chemistries reveal BUN 17, creatinine 1.4. AST, ALT, alk phos were all normal. IMPRESSION: A 62-year-old female admitted to the hospital with abdominal pain and nausea, on opiates for chronic pain with CT scan showing increased feces throughout the colon with some colonic distention as well as fluid-filled small bowel. I suspect that her abdominal pain is secondary to constipation. She does have some free fluid in the pelvis, etiology of which is unclear. There are no pelvic masses seen on CAT scan as well as no lymphadenopathy. RECOMMENDATIONS: 1. We will start the patient on GoLYTELY. The patient has been encouraged to drink as much of the 4 liters as possible. 2. Continue MiraLax 17 g twice a day. 3. The patient will need elective PHOSPHATIC FERTILIZER SUPERVISOR evaluation. 4. Elective colonoscopy if the patient has not had one in the last 10 years. Marcus Llanos MD
--- NOTE | 2018-04-16 19:30 | HP ---
DATE OF EXAM: 04/16/2018 CHIEF COMPLAINT AND HISTORY OF PRESENT ILLNESS: This is a 62-year-old female, who has come into the hospital with complaints of abdominal pain. The patient has a history of hypertension, COPD, and aortic aneurysm. The patient says that she has been on chronic pain medications because of her back and neck pain. The patient was complaining of abdominal pain that was present for the last two days, which was associated with nausea and shortness of breath. Since the pain is a bit better, she has been having constipation. The patient has no fevers or chills. No dysuria or frequency. No nocturia. No weakness in the arms or the legs. All of the review of symptoms are within normal limits except as mentioned. PAST MEDICAL HISTORY: She has COPD, hypertension, migraines, chronic back pain secondary to herniated disk, and anxiety. PAST SURGICAL HISTORY: . FAMILY HISTORY: Noncontributory. SOCIAL HISTORY: She denies smoking or drinking. MEDICATIONS: She is on valsartan, metoprolol, amlodipine, OxyContin 20 mg, and Percocet 7.5/325. PHYSICAL EXAMINATION: VITAL SIGNS: Temperature 98.5, pulse of 97, blood pressure 91/65, respirations 20, and O2 saturation 97%. Height is 5 feet 6 inches, weight is 135 pounds, BMI is 21.8. GENERAL: The patient is lying in bed, comfortable, and in no acute distress. HEENT: Atraumatic and normocephalic. Anicteric sclerae. Moist mucosa. [place] conjunctivae. No oral lesions. NECK: No JVD, anterior and posterior adenopathy, thyromegaly, or bruits. CARDIOVASCULAR: S1 and S2 regular. No murmurs, rubs or gallops. LUNGS: Clear to auscultation bilaterally. No wheezes, rales, or rhonchi. ABDOMEN: Bowel sounds are positive. Soft, nontender and nondistended. No hepatosplenomegaly. No rebound and no guarding EXTREMITIES: No cyanosis, clubbing, or edema. NEUROLOGIC: No facial asymmetry. Tongue is midline. No uvula deviation. Power is 5/5 upper extremities and lower extremities. Sensation intact in upper extremities and lower extremities. PSYCHIATRIC: She is awake, alert and oriented x3. No anxiety or depression. She has normal affect. GENITOURINARY: No CVA tenderness. VASCULAR: 2+ pulses in the carotid pulses and pedal pulses. SKIN: No erythema or nodules SPINE: Shows normal curvature. LABORATORY DATA: White count of 11.7. Chemistry shows a sodium 138, potassium is 4.8, and creatinine is 1.4. His EKG shows sinus rhythm at 86. No ST-T changes. QTC is 404. His chest x-ray shows no infiltrates. CT of the abdomen and pelvis shows moderate amount of fecal residue, large bowel suggestive of constipation. There is fluid filled small bowel with an ileus; aortic aneurysm, infrarenal that is 3.7 cm. ASSESSMENT: 1. Abdominal pain. 2. Constipation. 3. Ileus. 4. Infrarenal aortic aneurysm 3.7 cm, unchanged. 5. Hypertension. 6. Chronic obstructive pulmonary disease. PLAN: The patient is coming into the hospital as an observation. She is having abdominal pain, this is most likely from her constipation. She is going to be placed on Fleet Enema, she is agreeable. She is going to have consultation with Dr. Llanos, who is her rate inserter. The patient is on valsartan for hypertension. The patient is on amlodipine for her hypertension. She is receiving Percocet and OxyContin for chronic pain, this is probably the cause of her constipation. She is given IV fluids. The patient is currently comfortable. We will add additional laxatives to help with the constipation. Andrew Osuna MD
[2018-04-16] MEDS: Budesonide 0.5 mg/2 ml Inhal Susp UD IH SCH (20:13)
[2018-04-16] MEDS: Oxycodone/Acetaminophen 10/325 mg Tab PO PRN (22:35)
[2018-04-17] MEDS: Albuterol-Ipratrop 3 mg / 0.5 (3 ml) UD IH PRN ×3 (01:36→15:03)
[2018-04-17] MEDS: Budesonide 0.5 mg/2 ml Inhal Susp UD IH SCH ×2 (07:41→20:05)
[2018-04-17] MEDS: oxyCODONE 20 mg ER Tab (oxyCONTIN) PO SCH ×2 (09:59→21:09)
[2018-04-17] MEDS: POLYETHYLENE GLYCOL 3350 17 GM/Dose PACKET PO SCH ×2 (10:00→19:02)
[2018-04-17] MEDS ORDERED: [UNRECOGNIZED DRUG - OTHER] IH SCH ×2 (10:00→16:28)
[2018-04-17] MEDS ORDERED: PERFOROMIST 20 MCG IH SCH (10:00)
[2018-04-17] MEDS: ADEMPAS 2.5 MG PO SCH ×3 (10:01→19:01)
--- NOTE | 2018-04-17 15:55 | PN ---
DATE: 04/17/2018 SUBJECTIVE: The patient has no complaints of any chest pain or shortness of breath. No headaches or dizziness. She states she has not had a bowel movement yet. She continues to have abdominal discomfort. She had one bowel movement yesterday. PHYSICAL EXAMINATION: VITAL SIGNS: Temperature is 98.3, pulse of 76, blood pressure 112/56, respirations is 20. GENERAL: The patient is lying in bed, flat, comfortable. HEENT: No oral lesion. Anicteric sclerae. Moist mucosa. NECK: No JVD, adenopathy, or thyromegaly. CARDIOVASCULAR: S1 and S2, regular. No murmurs, rubs, or gallops. LUNGS: Clear to auscultation bilaterally. No wheeze, rales, or rhonchi. ABDOMEN: Bowel sounds are positive, soft, nontender and nondistended. EXTREMITIES: No cyanosis, clubbing or edema. LABORATORY DATA: White count of 11.7, hemoglobin is 11.8, creatinine is 1.4. ASSESSMENT: 1. Abdominal pain secondary to constipation. 2. Ileus. 3. Infrarenal aortic aneurysm 3.7 cm unchanged. 4. Hypertension. 5. Chronic obstructive pulmonary disease, acute, stable. PLAN: The patient was given go lightly. The patient is receiving Lopressor. She is on amlodipine for hypertension. She is receiving Pulmicort for her chronic obstructive pulmonary disease. The patient is on Tessalon Perles. She is on Perforomist for pulmonary hypertension. She is also on Lonhala and this will be continued. She is also on Adempas. We will wait for her to have larger bowel movement and to be able to be discharged home. Andrew Osuna MD
[2018-04-18] MEDS: Albuterol-Ipratrop 3 mg / 0.5 (3 ml) UD IH PRN ×3 (03:39→20:31)
[2018-04-18] MEDS: Budesonide 0.5 mg/2 ml Inhal Susp UD IH SCH ×2 (07:47→20:30)
[2018-04-18] MEDS: PERFOROMIST 20 MCG IH SCH (07:58)
--- NOTE | 2018-04-18 08:18 | DS ---
HISTORY OF PRESENT ILLNESS: This is a 62-year-old female who had come into the hospital complaining of abdominal pain. The patient who had a CT of the abdomen and pelvis that showed constipation. The patient was started on GoLYTELY, was also encouraged to continue outpatient bowel regimen because of the pain medications that the patient is on. The patient is having diarrhea at this point because of the GoLYTELY that she had been given over the last 2 days. She says she does have some relief over discomfort. She has no complaints of any headaches or dizziness. No nausea. No vomiting. PHYSICAL EXAMINATION: VITAL SIGNS: Temperature is 98.8, pulse of 83, blood pressure is 95/54, respirations 20 and O2 saturation 97%. GENERAL: The patient is lying in bed, flat, comfortable. HEENT: No oral lesion. Anicteric sclerae. Moist mucosa. NECK: No JVD, adenopathy, or thyromegaly. CARDIOVASCULAR: S1 and S2, regular. No murmurs, rubs, or gallops. LUNGS: Clear to auscultation bilaterally. No wheeze, rales, or rhonchi. ABDOMEN: Bowel sounds are positive, soft, nontender and nondistended. EXTREMITIES: No cyanosis, clubbing or edema. ASSESSMENT: 1. Abdominal pain, secondary to constipation. 2. Ileus resolved. 3. Infrarenal aortic aneurysm 3.7 cm unchanged. 4. Hypertension. 5. Chronic obstructive pulmonary disease, stable. PLAN: The patient is currently comfortable. The patient is receiving valsartan for hypertension. She has pulmonary hypertension. She is on her home medications. She is on Norvasc for hypertension. She is on MiraLax twice a day for her bowel regimen. The patient is receiving Senokot as well. She is on a heart healthy diet. She is going to be discharged home today. We will get pulmonary evaluation for her pulmonary hypertension and COPD. Andrew Osuna MD
[2018-04-18 08:29] VITALS: O2SAT 100
[2018-04-18] MEDS: oxyCODONE 20 mg ER Tab (oxyCONTIN) PO SCH ×2 (09:24→23:11)
[2018-04-18] MEDS: POLYETHYLENE GLYCOL 3350 17 GM/Dose PACKET PO SCH ×2 (09:25→18:41)
[2018-04-18] MEDS: ADEMPAS 2.5 MG PO SCH ×3 (09:29→18:30)
--- NOTE | 2018-04-18 11:52 | RAD ---
Date of service: 04/18/2018 HISTORY: abdominal pain COMPARISON: 04/16/2018 CT abdomen and pelvis FINDINGS: BOWEL: Normal. No obstruction. No free air. BONES: Normal. OTHER FINDINGS: None. IMPRESSION: No significant or acute findings to account for/ related to the clinical presentation.
--- NOTE | 2018-04-18 12:15 | PN ---
DATE: 04/18/2018 SUBJECTIVE: The patient is lying in bed, abdominal pain is less. She has had multiple watery bowel movements. She denies any nausea or vomiting. PHYSICAL EXAMINATION: VITAL SIGNS: Temperature 98.4, blood pressure 110/65, heart rate 98. HEENT: Reveal sclerae to be white. Conjunctivae pink. NECK: Supple. CHEST AND LUNGS: Clear. HEART: Exam reveals regular rate and rhythm. ABDOMEN: Soft, less distended, less tenderness. There is mild diffuse tenderness to deep palpation. EXTREMITIES: Show no edema. LABORATORY DATA: White blood cell count of 11.7 from the . No new laboratory data are available. IMPRESSION AND PLAN: A 62-year-old female with pulmonary hypertension, chronic obstructive pulmonary disease, hypertension, asthmatic bronchitis with abdominal pain secondary to constipation. She also has a stable infrarenal aortic aneurysm. Her constipation has improved with GoLYTELY, but she will need to take stool softeners due to her chronic opiate use. She will continue MiraLax 17 g b.i.d. and Senokot as needed. I will request an obstructive series of the abdomen to check on resolution of her fecal retention. Marcus Llanos MD
--- NOTE | 2018-04-18 18:23 | CP.PCM.PN ---
Subjective - Date & Time of Evaluation Date of Evaluation: 04/18/18 Time of Evaluation: 17:00 - Subjective Subjective: House Doc Note: Called for: exertional shortness of breath This is a 62 year old female with PMH COPD on 2L home O2, is here for abdominal pain, constipation. Currently, patient is complaining that she is afraid to go home as she feels shortness of breath from walking from her bed to the bathroom. She states that she wants to be evaluated by her pulmonary doctors. Patient currently denies shortness of breath, wheezing, dizziness, nausea, vomiting, chest pain, diaphoresis. Vitals stable: PE: Neuro: AAOx4 Resp: CTA b/l. no wheezes, rhonchi. on nasal cannula. Cardio: S1, S2. RRR. No murmurs, rubs. Extremities: no calf tenderness, no edema A/P: - Will obtain Physical therapy eval. - obtain pulmonology consult - discussed with PMD Dr Delgadillo. Naa Reynoso, PGY2 Objective - Vital Signs/Intake and Output Vital Signs (last 24 hours): Temp Pulse Resp BP Pulse Ox 98.3 F 78 20 95/62 L 100 04/18/18 13:00 04/18/18 13:00 04/18/18 13:00 04/18/18 13:00 04/18/18 13:00 Intake and Output: 04/18/18 04/18/18 06:59 18:59 Intake Total 520 Balance 520 - Medications Medications: Current Medications Albuterol/Ipratropium (Duoneb 3 Mg/0.5 Mg (3 Ml) Ud) 3 ml IH [id number] PRN PRN Reason: Shortness of Breath Last Admin: 04/18/18 07:47 Dose: 3 ml Amlodipine Besylate (Norvasc) 10 mg PO DAILY [facility] Last Admin: 04/18/18 09:25 Dose: 10 mg Benzonatate (Tessalon Perles) 100 mg PO Q8H PRN PRN Reason: Cough Last Admin: 04/18/18 09:27 Dose: 100 mg Budesonide (Pulmicort Respules) 0.5 mg IH [id number] [facility] Last Admin: 04/18/18 07:47 Dose: 0.5 mg Home Med (Home Med) 0 unit PO TID [facility] Last Admin: 04/17/18 19:01 Dose: 1 unit Home Med (Home Med) 0 unit IH BIDRESP [facility] Home Med (Home Med) 0 unit IH BIDRESP [facility] Metoprolol Tartrate (Lopressor) 50 mg PO BID [facility] Last Admin: 04/18/18 09:25 Dose: 50 mg Oxycodone HCl (Oxycontin Extended Release Tab) 20 mg PO Q12 [facility] Last Admin: 04/18/18 09:24 Dose: 20 mg Oxycodone/Acetaminophen (Percocet 10/325 Mg Tab) 1 tab PO Q4 PRN PRN Reason: Pain, severe (8-10) Last Admin: 04/16/18 22:35 Dose: 1 tab Polyethylene Glycol (Miralax) 17 gm PO BID [facility] Last Admin: 04/18/18 09:25 Dose: 17 gm Sennosides (Senokot Tab) 17.2 mg PO DAILY [facility] Last Admin: 04/18/18 09:24 Dose: 17.2 mg Valsartan (Diovan) 320 mg PO DAILY [facility] Last Admin: 04/18/18 09:25 Dose: 320 mg - Labs Labs: 04/16/18 02:40 04/16/18 02:40
[2018-04-18] MEDS: Oxycodone/Acetaminophen 10/325 mg Tab PO PRN (18:41)
[2018-04-18] MEDS ORDERED: [UNRECOGNIZED DRUG - OTHER] IH SCH (19:15)
[2018-04-19] MEDS: Oxycodone/Acetaminophen 10/325 mg Tab PO PRN (05:12)
[2018-04-19] MEDS: Budesonide 0.5 mg/2 ml Inhal Susp UD IH SCH ×2 (07:24→19:46)
--- NOTE | 2018-04-19 10:32 | CON ---
DATE: 04/19/2018 PULMONARY CONSULTATION REASON FOR PULMONARY CONSULTATION: Chronic obstructive pulmonary disease. REFERRING PHYSICIAN FOR THIS PULMONARY CONSULTATION: Andrew Osuna MD I did discuss the case with the night nurse at length. I have also reviewed the chart at length, and discussed case with the patient at length. HISTORY OF PRESENT ILLNESS: The patient is a chronically ill 62-year-old female, with past medical history significant for advanced chronic obstructive pulmonary disease, on home oxygen, asthma, pulmonary hypertension, who presented to [facility] - originally on 04/15/2018 - with a 2-day history of worsening upper abdominal pain and nausea. The patient also complained of constipation. She was thus admitted for additional evaluation. The patient is not short of breath at rest. She does have chronic dyspnea on exertion. There is no history of cough or sputum production. There is no history of chest pain, coughing up of blood, or chest pain - brought on with deep respirations. There is no history of temperatures, chills or infectious exposure. There is no history of night sweats, weight loss or appetite change prior to the above events. No history of leg or calf pains. No history of syncope or diaphoresis. No history of recent travel or trauma. REVIEW OF SYSTEMS: No acute urinary symptoms. No new neurologic or musculoskeletal complaints. Rest of the review of systems is negative. ALLERGIES: There are no known allergies. SOCIAL HISTORY: Positive for extensive tobacco usage. No alcohol. FAMILY HISTORY: No inheritable diseases. HOME MEDICATIONS: Include oxycodone, Norvasc, Diovan, Percocet, Augmentin, albuterol HFA, Adempas, Perforomist, LONHALA. PHYSICAL EXAMINATION: GENERAL: The patient appears very comfortable at rest. She is not short of breath. VITAL SIGNS (LAST NOTED IN THE COMPUTER): Temperature is 98.3, pulse 94, respirations 18, blood pressure 125/83. Oxygen saturation on nasal cannula is 100%. HEENT: Normocephalic, atraumatic. No JVD. CARDIOVASCULAR: Systolic ejection murmur at the lower left sternal border. No S3 gallop. LUNGS: Clear bilaterally. EXTREMITIES: No clubbing, cyanosis or edema. Calves are nontender to palpation. GASTROINTESTINAL: Abdomen is soft, nontender and nondistended. Bowel sounds are positive. SKIN: No acute rash. NEUROLOGIC: Exam limited at the present time. PERTINENT LABORATORY DATA: Chest x-ray was done and reviewed. There is no active pulmonary disease noted. CBC: White count 11.7K, hemoglobin 11.8, hematocrit 38.1, platelets of 258,000. Complete metabolic profile: Creatinine 1.4, glucose 121. Rest of the metabolic profile is within normal limits. IMPRESSION: 1. Abdominal pain, constipation - resolving. 2. Advanced chronic obstructive pulmonary disease. 3. Asthma. 4. Pulmonary hypertension. 5. Mild anemia. PLAN: Again, I did discuss the case with the night nurse at length. I have also reviewed the chart at length, and discussed the case with the patient at length. The patient presented to [facility] - originally on 04/16/2018 - with upper abdominal pain and nausea for the past 2 days. I did review the consult by Dr. Llanos (Gastroenterology). Since her admission, her abdominal pain has now resolved. I did question the patient extensively this morning. Other than the chronic dyspnea on exertion, the patient offers no new or significant pulmonary complaints. I did review the chest x-ray as above. It shows no active disease noted. On physical exam, the patient's lungs are clear. In addition, the oxygen saturation is 100% on nasal cannula. I will continue the current nebulizer treatments and pulmonary hypertension medications for now. The patient is followed closely by my partner, Dr. Campuzano. Clinical status of the patient appears significantly improved - compared to the initial presentation. The patient is for discharge in the near future. I will discuss the above with Dr. Osuna. Thank you very much for this pulmonary consultation. Mono Bronson MD [facility]
[2018-04-19] MEDS: oxyCODONE 20 mg ER Tab (oxyCONTIN) PO SCH (10:48)
[2018-04-19] MEDS: ADEMPAS 2.5 MG PO SCH ×2 (10:52→14:15)
[2018-04-19] MEDS: PERFOROMIST 20 MCG IH SCH (10:59)
[2018-04-19] MEDS: POLYETHYLENE GLYCOL 3350 17 GM/Dose PACKET PO SCH (10:59)
[2018-04-19 12:49] VITALS: RESP 18
--- NOTE | 2018-04-19 13:32 | PN ---
DATE: 04/19/2018 SUBJECTIVE: The patient is walking around in her room. She developed dyspnea on exertion yesterday. She is moving her bowels. Her abdominal pain has resolved. OBJECTIVE: VITAL SIGNS: Reveal temperature of 97.9, blood pressure 122/77, heart rate of 71. HEENT: Reveal sclerae to be white. Conjunctivae pink. NECK: Supple. CHEST: Lungs are clear. HEART: Reveals a regular rate and rhythm. ABDOMEN: Soft, nontender. No mass. EXTREMITIES: Show no edema. LABORATORY DATA: No new laboratory data available. IMPRESSION: 1. Abdominal pain secondary to constipation which is resolved. 2. Chronic obstructive pulmonary disease. 3. Chronic asthmatic bronchitis. 4. Stable infrarenal abdominal aortic aneurysm. 5. Pulmonary hypertension. RECOMMENDATIONS: 1. Continue MiraLax 17 g twice a day. 2. Dulcolax tablets 1-2 tablets at night. 3. Consider elective colonoscopy which was recommended to the patient when her pulmonary status has stabilized, this can be done as electively as an outpatient. Marcus Llanos MD
[2018-04-19 14:43] VITALS: BP 110/68; PULSE 77; TEMP 98.8
[2018-04-19] MEDS ORDERED: Influenza Vaccine 60 mcg/0.5 mL SYR (4YR UP) IM ONE (15:11)
--- NOTE | 2018-04-19 18:17 | PN ---
DATE: 04/19/2018 CHIEF COMPLAINT AND HISTORY OF PRESENT ILLNESS: The patient states that she has been having shortness of breath on exertion. The patient says she has been having bowel movements. She is currently comfortable. She did not want to go home yesterday because of the shortness of breath. PHYSICAL EXAMINATION: VITAL SIGNS: Temperature is 97.9, pulse is 71, blood pressure 122/77, and respirations 18. GENERAL: The patient is lying in bed, flat, comfortable. HEENT: No oral lesion. Anicteric sclerae. Moist mucosa. NECK: No JVD, adenopathy, or thyromegaly. CARDIOVASCULAR: S1 and S2, regular. No murmurs, rubs, or gallops. LUNGS: Clear to auscultation bilaterally. No wheeze, rales, or rhonchi. ABDOMEN: Bowel sounds are positive, soft, nontender and nondistended. EXTREMITIES: No cyanosis, clubbing or edema. ASSESSMENT: 1. Abdominal pain secondary to constipation, improved. 2. Ileus, resolved. 3. Pulmonary hypertension. 4. Infrarenal aortic aneurysm, 3.7 cm unchanged. 5. Hypertension. 6. Chronic obstructive pulmonary disease. PLAN: The patient is currently on valsartan. She is on her home medications for the pulmonary hypertension. She is on . She is on OxyContin for pain. She is on Norvasc for her hypertension. She did not wish to go home yesterday because she said that she was short of breath. The patient was seen by Pulmonary today. She did not have any acute shortness of breath that warrants her to be hospitalized. The patient says that she gets short of breath when she ambulates. The respiratory therapist walked with the patient and 2 L of O2. The patient had a pulse ox of 94%. The patient does have home O2. The patient was evaluated by Physical Therapy and she was cleared to be discharged home, did not require subacute rehab. The patient was able to walk 150 feet times 2 and also was able to walk with respiratory therapist for more than a 100 feet. CONDITION: Stable. ACTIVITY: Increase as tolerated. Discharged home. Please see the discharge summary that was done yesterday. Andrew Osuna MD [facility] # [id number]
== END 2018-04-19 19:30 | disposition home or self-care (01) ==
LOC: ED 01:57 → ERH 05:26 → 5RNO 07:15
PROVIDERS: ADMIT Internal Medicine Nephrology; ATTEND Internal Medicine Nephrology
DX: K59.00 Constipation, unspecified (principal); K56.7 Ileus, unspecified; I10 Essential (primary) hypertension; J44.9 Chronic obstructive pulmonary disease, unspecified; I27.20 Pulmonary hypertension, unspecified; D64.9 Anemia, unspecified; I71.4 Abdominal aortic aneurysm, without rupture; G89.29 Other chronic pain; Z99.81 Dependence on supplemental oxygen; Z79.891 Long term (current) use of opiate analgesic; Z87.891 Personal history of nicotine dependence
CPT/HCPCS: 71045; 74019; 74177; 80053; 83690; 85027; 90471; 90674; 93005; 94640; 94760; 96361; 96374; 96375; 96376; 97116; 97162; 99285; G0378; G8978; G8979; J2270; J2405; J7030; Q9967